=== PATIENT | female | born 1950 | race American Indian/Alaskan Native ===

== ENCOUNTER 2018-08-18 10:47 | Emergency (ER) | payer MEDICARE, OTHER ==
[~2018-08-18] VITALS: Ht 157.5 cm; Wt 63.5 kg
[2018-08-18 11:34] LABS: Basophils # (auto) 0.1 uL; Basophils % (auto) 0.7 % (0.0-2.0); Eosinophils # (auto) 0.3 uL; Eosinophils % (auto) 4.5 % (0.0-7.0); Hematocrit 35.4 % (36.0-46.0); Hemoglobin 11.7 g/dL (12.2-16.2); Lymphocytes # (auto) 0.7 uL; Lymphocytes % (auto) 8.9 % (10.0-50.0); Mean Corpuscular Hemoglobin 29.1 pg (28.0-32.0); Mean Corpuscular Hgb Conc. 33.1 g/dL (32.0-36.0); Monocytes # (auto) 0.4 uL; Monocytes % (auto) 5.4 % (0.0-12.0); Neutrophils # (auto) 6.3 uL; Neutrophils % (auto) 80.5 % (37.0-80.0); Nucleated Red Blood Cells % 0.1 %; Platelet Count (auto) 242 10^3/uL (140-450); Red Blood Cells 4.02 10^6/uL (4.0-5.20); Red Cell Distribution Width 16.6 % (11.8-14.3); White Blood Cell 7.9 10^3/uL (4.4-10.8)
[2018-08-18 11:54] LABS: Calcium 8.4 mg/dL (8.5-10.1)
[2018-08-18 12:06] LABS: Albumin 3.8 g/dL (3.4-5.0)
[2018-08-18 12:34] LABS: BUN/Creatinine Ratio 28.3; Magnesium 2.1 mg/dL (1.6-2.6)
[2018-08-18 13:02] LABS: Total Protein 7.6 g/dL (6.4-8.2)
[2018-08-18 13:20] VITALS: BP 147/85
== END 2018-08-18 13:22 | disposition home or self-care (01) ==
LOC: ER 10:49
DX: J40 Bronchitis, not specified as acute or chronic (principal); F41.9 Anxiety disorder, unspecified
CPT/HCPCS: 36415; 71046; 80053; 83735; 83880; 84484; 85025; 93005

== ENCOUNTER → 2018-10-03 | Outpatient (CLI) | payer MEDICARE, OTHER ==
[~2018-10-03] MED LIST: BEN10T PO; CAR3125T PO; FURO40TA4 PO; POTA-167 PO; WARPRX PO
== END | disposition home or self-care (01) ==
LOC: Rad HDHVI 14:55
PROVIDERS: ATTEND Internal Medicine Cardiovascular Disease
DX: I07.1 Rheumatic tricuspid insufficiency (principal); R06.02 Shortness of breath
CPT/HCPCS: 93306

== ENCOUNTER → 2018-11-24 | Outpatient (CLI) | payer MEDICARE, OTHER ==
[~2018-11-24] VITALS: Ht 157.5 cm; Wt 72.6 kg
[~2018-11-24] MED LIST changes: +ADENOSINE 61 MG in GIVE UN-DILUTED 0 ML IV ONE; +ADENOSINE 90 MG/30 ML INJ IV ONE
== END | disposition home or self-care (01) ==
LOC: Rad HDHVI 09:49
PROVIDERS: ATTEND Internal Medicine Cardiovascular Disease
DX: I05.0 Rheumatic mitral stenosis (principal); I11.0 Hypertensive heart disease with heart failure; I50.33 Acute on chronic diastolic (congestive) heart failure; I00 Rheumatic fever without heart involvement; I31.3 Pericardial effusion (noninflammatory); E78.00 Pure hypercholesterolemia, unspecified
CPT/HCPCS: 78452; 93005; 96374; 96375; A9500; J0153

== ENCOUNTER → 2019-01-18 | Outpatient (CLI) | payer MEDICARE, OTHER ==
[~2019-01-18] VITALS: Ht 157.5 cm; Wt 72.6 kg
[~2019-01-18] MED LIST changes: -ADENOSINE 61 MG in GIVE UN-DILUTED 0 ML IV ONE; -ADENOSINE 90 MG/30 ML INJ IV ONE
[2019-01-18 12:23] LABS: Basophils # (auto) 0.1 uL; Basophils % (auto) 1.1 % (0.0-2.0); Eosinophils # (auto) 0.3 uL; Eosinophils % (auto) 6.2 % (0.0-7.0); Hematocrit 35.3 % (36.0-46.0); Hemoglobin 11.7 g/dL (12.2-16.2); Lymphocytes % (auto) 21.5 % (10.0-50.0); Mean Corpuscular Hemoglobin 29.6 pg (28.0-32.0); Mean Corpuscular Hgb Conc. 33.1 g/dL (32.0-36.0); Mean Corpuscular Volume 89.6 fL (80.0-100.0); Monocytes # (auto) 0.2 uL; Monocytes % (auto) 4.6 % (0.0-12.0); Neutrophils # (auto) 3.1 uL; Neutrophils % (auto) 66.6 % (37.0-80.0); Platelet Count (auto) 252 10^3/uL (140-450); Red Blood Cells 3.94 10^6/uL (4.0-5.20); White Blood Cell 4.7 10^3/uL (4.4-10.8)
[2019-01-18 12:24] LABS: Urine Blood Negative /uL (Negative); Urine Specific Gravity 1.017 (1.001-1.035)
[2019-01-18 12:40] LABS: Albumin 3.8 g/dL (3.4-5.0); BUN/Creatinine Ratio 26.7; Calcium 8.8 mg/dL (8.5-10.1); Potassium 4.1 mmol/L (3.5-5.1)
[2019-01-18 12:44] LABS: Bilirubin, Total 0.8 mg/dL (0.2-1.0); Total Protein 7.7 g/dL (6.4-8.2)
[2019-01-18 12:50] LABS: Free T4 (Free Thyroxine) 1.06 ng/dL (0.89-1.76)
== END | disposition home or self-care (01) ==
LOC: Rad HDHVI 09:04
PROVIDERS: ATTEND Internal Medicine Cardiovascular Disease
DX: N39.0 Urinary tract infection, site not specified (principal); D51.9 Vitamin B12 deficiency anemia, unspecified; K90.9 Intestinal malabsorption, unspecified; E11.9 Type 2 diabetes mellitus without complications; I50.9 Heart failure, unspecified; Z79.899 Other long term (current) drug therapy
CPT/HCPCS: 36415; 78472; 80053; 80061; 81003; 82306; 82607; 83036; 83880; 84439; 84443; 85025; 87086; 96374; 96375; A9505

== ENCOUNTER → 2019-01-19 | Outpatient (CLI) | payer MEDICARE, OTHER | END | disposition home or self-care (01) | LOC: Rad HDHVI 10:06 | PROVIDERS: ATTEND Internal Medicine Cardiovascular Disease | DX: J84.89 Other specified interstitial pulmonary diseases (principal); I11.0 Hypertensive heart disease with heart failure | CPT/HCPCS: 71046 ==

== ENCOUNTER → 2019-03-09 | Outpatient (CLI) | payer MEDICARE, OTHER | END | disposition home or self-care (01) | LOC: Rad HDHVI 09:06 | PROVIDERS: ATTEND Internal Medicine Cardiovascular Disease | DX: K74.60 Unspecified cirrhosis of liver (principal); J84.10 Pulmonary fibrosis, unspecified; J84.9 Interstitial pulmonary disease, unspecified; I25.10 Atherosclerotic heart disease of native coronary artery without angina pectoris; I51.7 Cardiomegaly; I50.9 Heart failure, unspecified; J98.11 Atelectasis | CPT/HCPCS: 71250 ==

== ENCOUNTER → 2019-04-05 | Outpatient (CLI) | payer MEDICARE, OTHER | END | disposition home or self-care (01) | LOC: Rad HDHVI 14:01 | PROVIDERS: ATTEND Internal Medicine Cardiovascular Disease | DX: I08.8 Other rheumatic multiple valve diseases (principal); I25.5 Ischemic cardiomyopathy; I50.9 Heart failure, unspecified; Z95.1 Presence of aortocoronary bypass graft; Z82.5 Family history of asthma and other chronic lower respiratory diseases; Z83.3 Family history of diabetes mellitus | CPT/HCPCS: 93306 ==

== ENCOUNTER → 2019-07-27 | Outpatient (CLI) | payer MEDICARE, OTHER ==
[2019-07-27 12:15] LABS: BUN/Creatinine Ratio 17.6; Potassium 4.1 mmol/L (3.5-5.1)
== END | disposition home or self-care (01) ==
LOC: LAB 10:19
PROVIDERS: ATTEND Internal Medicine Cardiovascular Disease
DX: I50.9 Heart failure, unspecified (principal)
CPT/HCPCS: 36415; 80048; 83880

== ENCOUNTER → 2019-08-06 | Outpatient (CLI) | payer MEDICARE, OTHER ==
[2019-08-06 10:00] VITALS: BP 125/65
--- NOTE | 2019-08-06 10:00 | NUR ---
Pre-Op Discharge Summary: See e-MAR for any medications given for this visit. Pre-op orders received and carried out per MD of EKG, LAB. Patient given a copy of EKG with instructions to go to [facility] out patient for further follow up care.
--- NOTE | 2019-08-06 10:00 | NUR ---
CHF PT ARRIVED TO THE CHF CLINIC FOR PREOP EKG, LABS. CHEST XRAY NOT DONE HERE TODAY. VSS EKG SHOWS AFIB AWARE PT TO HAVE LEFT HEART CATH 08/09/19
[2019-08-06 10:50] VITALS: BP 128/73
[2019-08-06 12:06] LABS: Basophils # (auto) 0.1 10 ^3/uL (0-0.2); Basophils % (auto) 1.1 % (0.0-2.0); Eosinophils # (auto) 0.2 10 ^3/uL (0-0.8); Eosinophils % (auto) 3.7 % (0.0-7.0); Hematocrit 36.2 % (36.0-46.0); Hemoglobin 11.9 g/dL (12.2-16.2); Lymphocytes # (auto) 0.9 10 ^3/uL (0.4-5.4); Lymphocytes % (auto) 16.4 % (10.0-50.0); Mean Corpuscular Hemoglobin 29.2 pg (28.0-32.0); Mean Corpuscular Volume 88.4 fL (80.0-100.0); Monocytes # (auto) 0.3 10 ^3/uL (0-1.3); Monocytes % (auto) 5.9 % (0.0-12.0); Neutrophils # (auto) 3.8 10 ^3/uL (1.6-8.6); Neutrophils % (auto) 72.9 % (37.0-80.0); Platelet Count (auto) 262 10^3/uL (140-450); White Blood Cell 5.2 10^3/uL (4.4-10.8)
[2019-08-06 12:17] LABS: INR 2.41 (0.9-1.15); Partial Thromboplastin Time 55.9 sec (23.64-32.05)
[2019-08-06 12:19] LABS: Calcium 8.6 mg/dL (8.5-10.1); Potassium 4.1 mmol/L (3.5-5.1)
[2019-08-06 12:21] LABS: BUN/Creatinine Ratio 16.1
== END | disposition home or self-care (01) ==
LOC: Rad HDHVI 09:54
PROVIDERS: ATTEND Internal Medicine Cardiovascular Disease
DX: Z01.812 Encounter for preprocedural laboratory examination (principal); I50.9 Heart failure, unspecified; R94.31 Abnormal electrocardiogram [ECG] [EKG]; I25.10 Atherosclerotic heart disease of native coronary artery without angina pectoris; R06.02 Shortness of breath; I25.5 Ischemic cardiomyopathy
CPT/HCPCS: 36415; 80048; 85025; 85610; 85730; 93005; G0463

== ENCOUNTER 2019-08-09 08:20 | Day surgery (SDC) | payer MEDICARE, OTHER ==
[~2019-08-09] VITALS: Ht 157.5 cm; Wt 74.8 kg
[~2019-08-09 08:20] MED LIST changes: -BEN10T PO
[2019-08-09] MEDS ORDERED: IOHEXOL 350 MG/ML 100ML IJ ONE (10:49)
[2019-08-09] MEDS ORDERED: LIDOCAINE 2%HCL (LOCAL ANESTH.) INJ 20ML MDV ONE (10:49)
[2019-08-09] MEDS ORDERED: SODIUM CHL 0.9% 0 ML ONE (10:56)
[2019-08-09] MEDS ORDERED: ANGIOMAX 250 MG VIAL IV ONE (10:56)
[2019-08-09] MEDS ORDERED: fentaNYL CITRATE 100 MCG/2 ML VL ONE (10:56)
[2019-08-09] MEDS ORDERED: MIDAZOLAM HCL 1MG/1ML-2 ML VIAL ONE (10:56)
== END 2019-08-09 14:00 | disposition home or self-care (01) ==
LOC: CATH 08:20
PROVIDERS: ATTEND Internal Medicine Cardiovascular Disease
DX: I27.20 Pulmonary hypertension, unspecified (principal); I11.0 Hypertensive heart disease with heart failure; I50.43 Acute on chronic combined systolic (congestive) and diastolic (congestive) heart failure; Z79.01 Long term (current) use of anticoagulants; Z95.2 Presence of prosthetic heart valve; Z79.899 Other long term (current) drug therapy; Z90.49 Acquired absence of other specified parts of digestive tract; Z90.89 Acquired absence of other organs; Z98.51 Tubal ligation status
CPT/HCPCS: 93460; C1751; C1760; C1894; J1644; J2250; J3010; J7030; Q9967; 99152; 99153

== ENCOUNTER → 2019-09-28 | Outpatient (CLI) | payer MEDICARE, OTHER ==
[2019-09-28 10:59] VITALS: BP 122/60
[2019-09-28 12:45] VITALS: BP 129/76
[2019-09-28 15:59] LABS: Basophils # (auto) 0 10 ^3/uL (0-0.2); Basophils % (auto) 0.9 % (0.0-2.0); Eosinophils # (auto) 0.1 10 ^3/uL (0-0.8); Eosinophils % (auto) 3.1 % (0.0-7.0); Hematocrit 33.6 % (36.0-46.0); Hemoglobin 11.1 g/dL (12.2-16.2); Lymphocytes # (auto) 0.7 10 ^3/uL (0.4-5.4); Lymphocytes % (auto) 16.1 % (10.0-50.0); Mean Corpuscular Hemoglobin 28.4 pg (28.0-32.0); Mean Corpuscular Hgb Conc. 32.9 g/dL (32.0-36.0); Mean Corpuscular Volume 86.2 fL (80.0-100.0); Monocytes # (auto) 0.3 10 ^3/uL (0-1.3); Monocytes % (auto) 6.1 % (0.0-12.0); Neutrophils # (auto) 3.4 10 ^3/uL (1.6-8.6); Neutrophils % (auto) 73.8 % (37.0-80.0); Platelet Count (auto) 241 10^3/uL (140-450); Red Cell Distribution Width 15.2 % (11.8-14.3); White Blood Cell 4.6 10^3/uL (4.4-10.8)
[2019-09-28 16:22] LABS: Albumin 3.5 g/dL (3.4-5.0); Calcium 8.3 mg/dL (8.5-10.1); Magnesium 2.3 mg/dL (1.6-2.6); Potassium 3.9 mmol/L (3.5-5.1)
[2019-09-28 16:25] LABS: BUN/Creatinine Ratio 24.4; Bilirubin, Total 0.7 mg/dL (0.2-1.0); Total Protein 7.2 g/dL (6.4-8.2)
== END | disposition home or self-care (01) ==
LOC: CHF HDHVI 10:47
PROVIDERS: ATTEND Internal Medicine Cardiovascular Disease
DX: I50.9 Heart failure, unspecified (principal); K90.9 Intestinal malabsorption, unspecified; Z79.899 Other long term (current) drug therapy
CPT/HCPCS: 36415; 80053; 82306; 82607; 83036; 83735; 83880; 85025; 85610; 94618; G0463

== ENCOUNTER → 2019-10-12 | Outpatient (CLI) | payer MEDICARE, OTHER ==
[2019-10-12 16:03] LABS: Anion Gap 9 (5-15); BUN/Creatinine Ratio 23.6; Blood Urea Nitrogen 13 mg/dL (7-18); Calcium 8.8 mg/dL (8.5-10.1); Carbon Dioxide 25 mmol/L (21-32); Chloride 99 mmol/L (98-107); GFR African American 141 mL/min; GFR Non-African American 116 mL/min; Glucose 90 mg/dL (74-106); Potassium 4.2 mmol/L (3.5-5.1); Sodium 133 mmol/L (136-145)
== END | disposition home or self-care (01) ==
LOC: LAB 12:44
PROVIDERS: ATTEND Internal Medicine Cardiovascular Disease
DX: I50.9 Heart failure, unspecified (principal)
CPT/HCPCS: 36415; 80048; 83880

== ENCOUNTER → 2019-10-17 | Outpatient (CLI) | payer MEDICARE, OTHER | END | disposition home or self-care (01) | LOC: Rad HDHVI 15:35 | PROVIDERS: ATTEND Internal Medicine Cardiovascular Disease | DX: I50.23 Acute on chronic systolic (congestive) heart failure (principal); I27.21 Secondary pulmonary arterial hypertension; I48.21 Permanent atrial fibrillation | CPT/HCPCS: 93306 ==

== ENCOUNTER → 2019-11-07 | Outpatient (CLI) | payer MEDICARE, OTHER ==
[~2019-11-07] MED LIST changes: +FUROSEMIDE 100 MG/10ML VIAL IV ONE; +FUROSEMIDE 40 MG/4 ML VIAL ONE; +POTASSIUM CHL 10 Meq TABLET PO ONE; +POTASSIUM CHL 20 Meq TABLET PO ONE
[2019-11-07 16:00] VITALS: BP 116/61
[2019-11-07 16:37] VITALS: BP 130/77
== END | disposition home or self-care (01) ==
LOC: CHF HDHVI 15:54
PROVIDERS: ATTEND Internal Medicine Cardiovascular Disease
DX: I27.21 Secondary pulmonary arterial hypertension (principal); I50.32 Chronic diastolic (congestive) heart failure; I48.21 Permanent atrial fibrillation; Z79.899 Other long term (current) drug therapy
CPT/HCPCS: 96374; G0463; J1940

== ENCOUNTER → 2019-11-21 | Outpatient (CLI) | payer MEDICARE, OTHER ==
[~2019-11-21] MED LIST changes: -FUROSEMIDE 100 MG/10ML VIAL IV ONE; -FUROSEMIDE 40 MG/4 ML VIAL ONE; -POTASSIUM CHL 10 Meq TABLET PO ONE; -POTASSIUM CHL 20 Meq TABLET PO ONE
[2019-11-21 11:05] VITALS: BP 118/55
[2019-11-21 11:54] VITALS: BP 112/56
[2019-11-21 16:00] LABS: Basophils # (auto) 0 10 ^3/uL (0-0.2); Basophils % (auto) 0.7 % (0.0-2.0); Eosinophils # (auto) 0.1 10 ^3/uL (0-0.8); Eosinophils % (auto) 1.9 % (0.0-7.0); Hematocrit 32.7 % (36.0-46.0); Hemoglobin 11.2 g/dL (12.2-16.2); Lymphocytes # (auto) 0.7 10 ^3/uL (0.4-5.4); Lymphocytes % (auto) 13.2 % (10.0-50.0); Mean Corpuscular Hemoglobin 28.8 pg (28.0-32.0); Mean Corpuscular Hgb Conc. 34.2 g/dL (32.0-36.0); Mean Corpuscular Volume 84.2 fL (80.0-100.0); Monocytes # (auto) 0.3 10 ^3/uL (0-1.3); Monocytes % (auto) 5.9 % (0.0-12.0); Neutrophils % (auto) 78.3 % (37.0-80.0); Nucleated Red Blood Cells % 0.1 %; Platelet Count (auto) 291 10^3/uL (140-450); Red Blood Cells 3.89 10^6/uL (4.0-5.20); Red Cell Distribution Width 15.7 % (11.8-14.3); White Blood Cell 5.1 10^3/uL (4.4-10.8)
[2019-11-21 16:06] LABS: Albumin 3.9 g/dL (3.4-5.0); BUN/Creatinine Ratio 54.1; Calcium 9.2 mg/dL (8.5-10.1); Magnesium 2.4 mg/dL (1.6-2.6)
[2019-11-21 16:15] LABS: Potassium 2.6 mmol/L (3.5-5.1)
== END | disposition home or self-care (01) ==
LOC: CHF HDHVI 11:05
PROVIDERS: ATTEND Internal Medicine Cardiovascular Disease
DX: D64.9 Anemia, unspecified (principal); R60.0 Localized edema; I27.21 Secondary pulmonary arterial hypertension; Z79.899 Other long term (current) drug therapy
CPT/HCPCS: 36415; 80053; 83735; 85025; G0463

== ENCOUNTER → 2019-11-28 | Outpatient (CLI) | payer MEDICARE, OTHER ==
[~2019-11-28] MED LIST changes: +CARV3.1240 PO; +MACI1TAB2 PO; +METO5TAB56 PO; +POTA-220 PO; +RIOC1TAB PO; +WARF-196 PO; +WARF5TAB71 PO; -WARPRX PO
[2019-11-28 15:26] LABS: BUN/Creatinine Ratio 42.7; Calcium 8.9 mg/dL (8.5-10.1)
[2019-11-28 15:37] LABS: Potassium 2.5 mmol/L (3.5-5.1)
== END | disposition home or self-care (01) ==
LOC: LAB 14:49
PROVIDERS: ATTEND Internal Medicine Cardiovascular Disease
DX: E03.9 Hypothyroidism, unspecified (principal); K90.9 Intestinal malabsorption, unspecified; N39.0 Urinary tract infection, site not specified; D51.9 Vitamin B12 deficiency anemia, unspecified; Z79.899 Other long term (current) drug therapy
CPT/HCPCS: 36415; 80048

== ENCOUNTER → 2019-11-30 | Outpatient (CLI) | payer MEDICARE, OTHER ==
[~2019-11-30] MED LIST changes: -CARV3.1240 PO; -MACI1TAB2 PO; -METO5TAB56 PO; -POTA-220 PO; -RIOC1TAB PO; -WARF-196 PO; -WARF5TAB71 PO; +WARPRX PO
[2019-11-30 11:46] VITALS: BP 115/49
--- NOTE | 2019-11-30 11:46 | NUR ---
CLINIC PT ARRIVED TO THE CHF CLINIC FOR EVAL AND RECHECK OF K+ LEVEL THAT WAS 2.5 ON 11/28/19. PT WAS INSTRUCTED ON 11/28/19 TO INCREASE HER K+. A/OX4, AMBULATORY. PT WAS ASSISTED BY CAREGIVER.
--- NOTE | 2019-11-30 12:30 | NUR ---
Discharge Instructions See e-MAR for any mediations given with this visit. Patient education given on disease process. Patient verbalized understanding. Previous labs reviewed. Patient discharged in stable condition with after care instructions and follow up appointment 1 WEEK AFTER STARTING ADEMPUS. PT IS TO RESTART OPSUMIT 10MG QD TODAY AND IS AWAITING APPROVAL FOR ADEMPUS 0.5 MG TID. VIT D SPRAY GIVEN TO PT. CHRYSTAL WHITE WILL CALL PT WITH LABS RESULTS WHEN RESULTED.
[2019-11-30 12:41] LABS: BUN/Creatinine Ratio 36.3; Calcium 9.2 mg/dL (8.5-10.1)
[2019-11-30 14:11] LABS: Potassium 2.9 mmol/L (3.5-5.1)
== END | disposition home or self-care (01) ==
LOC: CHF HDHVI 11:48
PROVIDERS: ATTEND Internal Medicine Cardiovascular Disease
DX: I27.0 Primary pulmonary hypertension (principal); E87.6 Hypokalemia
CPT/HCPCS: 36415; 80048; G0463

== ENCOUNTER → 2019-12-19 | Outpatient (CLI) | payer MEDICARE, OTHER ==
[~2019-12-19] VITALS: Ht 30.5 cm; Wt 69.9 kg
[~2019-12-19] MED LIST changes: +CYANOCOBALAMIN (B-12) 1000 MCG/1 ML VIAL IM ONE; +CYANOCOBALAMIN (B-12) 1000 MCG/1 ML VIAL ONE; +WARF-196 PO; -WARPRX PO
[2019-12-19 11:15] VITALS: BP 106/54
[2019-12-19 11:48] VITALS: BP 105/52
[2019-12-19 11:52] LABS: Basophils # (auto) 0.1 10 ^3/uL (0-0.2); Basophils % (auto) 0.9 % (0.0-2.0); Eosinophils # (auto) 0.2 10 ^3/uL (0-0.8); Eosinophils % (auto) 2.9 % (0.0-7.0); Hematocrit 33.9 % (36.0-46.0); Hemoglobin 11.5 g/dL (12.2-16.2); Lymphocytes # (auto) 0.9 10 ^3/uL (0.4-5.4); Lymphocytes % (auto) 16.1 % (10.0-50.0); Mean Corpuscular Hemoglobin 28.5 pg (28.0-32.0); Mean Corpuscular Hgb Conc. 33.9 g/dL (32.0-36.0); Monocytes # (auto) 0.3 10 ^3/uL (0-1.3); Monocytes % (auto) 5.6 % (0.0-12.0); Neutrophils # (auto) 4.3 10 ^3/uL (1.6-8.6); Neutrophils % (auto) 74.5 % (37.0-80.0); Nucleated Red Blood Cells % 0.1 %; Platelet Count (auto) 307 10^3/uL (140-450); Red Blood Cells 4.03 10^6/uL (4.0-5.20); Red Cell Distribution Width 15.5 % (11.8-14.3); White Blood Cell 5.7 10^3/uL (4.4-10.8)
[2019-12-19 11:58] LABS: Albumin 3.5 g/dL (3.4-5.0); Calcium 8.7 mg/dL (8.5-10.1); Magnesium 2.4 mg/dL (1.6-2.6)
[2019-12-19 12:02] LABS: BUN/Creatinine Ratio 41.9; Bilirubin, Total 0.8 mg/dL (0.2-1.0); Total Protein 7.8 g/dL (6.4-8.2)
[2019-12-19 14:15] LABS: Potassium 2.7 mmol/L (3.5-5.1)
== END | disposition home or self-care (01) ==
LOC: CHF HDHVI 11:02
PROVIDERS: ATTEND Internal Medicine Cardiovascular Disease
DX: I27.0 Primary pulmonary hypertension (principal); D64.9 Anemia, unspecified; E83.40 Disorders of magnesium metabolism, unspecified; R53.83 Other fatigue; Z79.899 Other long term (current) drug therapy
CPT/HCPCS: 36415; 80053; 83735; 85025; 96372; G0463; J3420

== ENCOUNTER → 2019-12-21 | Outpatient (CLI) | payer MEDICARE, OTHER ==
[~2019-12-21] MED LIST changes: +CARV3.1240 PO; -CYANOCOBALAMIN (B-12) 1000 MCG/1 ML VIAL IM ONE; -CYANOCOBALAMIN (B-12) 1000 MCG/1 ML VIAL ONE; +MACI1TAB2 PO; +METO5TAB56 PO; +POTA-220 PO; +POTASSIUM EFFERVESENT TAB 25 MEQ ONE; +POTASSIUM EFFERVESENT TAB 25 MEQ PO ONE; +RIOC1TAB PO; +WARF5TAB71 PO
[2019-12-21 10:01] VITALS: BP 112/66
--- NOTE | 2019-12-21 10:01 | NUR ---
PT ARRIVED TO CHF CLINIC FOR TX PT ARRIVED TO CHF CLINIC FOR TX AND EVALUATION. PT IS ALERT AND AWAKE, ON ROOM AIR, WITH EVEN AND UNLABORED RESPIRATIONS. NO S/S OF DISTRESS/SOB OR PAIN NOTED. PT IS AMBULATING WITH SLOW STEADY GAIT. WILL CARRY OUT MD ORDERS.
[2019-12-21 11:35] LABS: BUN/Creatinine Ratio 40.4; Calcium 8.3 mg/dL (8.5-10.1); Potassium 3.1 mmol/L (3.5-5.1)
[2019-12-21 12:08] VITALS: BP 132/63
--- NOTE | 2019-12-21 12:08 | NUR ---
CHF CLINIC Discharge Instructions See e-MAR for any mediations given with this visit. Patient education given on disease process. Patient verbalized understanding. Previous labs reviewed. Patient discharged in stable condition with after care instructions and follow up appointment. NOTES POTASSIUM EFFERVESCENT PO ADMIN BY HARITHA WHITE Addendum: 12/21/19 at 1251 by LISSY DAVID RN PT INFORMED TO RETURN TO CLINIC ON 12/26/2019 AND TO CONTINUE CURRENT REGIMEN OF POTASSIUM AT HOME OF 40 MEQ TID. PT VERBALIZED UNDERSTANDING.
== END | disposition home or self-care (01) ==
LOC: CHF HDHVI 10:01
PROVIDERS: ATTEND Internal Medicine Cardiovascular Disease
DX: I27.0 Primary pulmonary hypertension (principal); Z79.899 Other long term (current) drug therapy; E87.6 Hypokalemia
CPT/HCPCS: 36415; 80048; G0463

== ENCOUNTER → 2019-12-26 | Outpatient (CLI) | payer MEDICARE, OTHER ==
[~2019-12-26] MED LIST changes: -CARV3.1240 PO; -MACI1TAB2 PO; -METO5TAB56 PO; -POTA-220 PO; -POTASSIUM EFFERVESENT TAB 25 MEQ ONE; -POTASSIUM EFFERVESENT TAB 25 MEQ PO ONE; -RIOC1TAB PO; -WARF5TAB71 PO
[2019-12-26 12:15] LABS: Calcium 8.9 mg/dL (8.5-10.1)
[2019-12-26 12:18] LABS: BUN/Creatinine Ratio 35.8
[2019-12-26 14:27] LABS: Potassium 2.6 mmol/L (3.5-5.1)
== END | disposition home or self-care (01) ==
LOC: LAB 10:36
PROVIDERS: ATTEND Internal Medicine Cardiovascular Disease
DX: E87.6 Hypokalemia (principal); E87.1 Hypo-osmolality and hyponatremia; Z79.899 Other long term (current) drug therapy
CPT/HCPCS: 36415; 80048

== ENCOUNTER → 2020-01-11 | Outpatient (CLI) | payer MEDICARE, OTHER ==
[~2020-01-11] MED LIST changes: +CARV3.1240 PO; +MACI1TAB2 PO; +METO5TAB56 PO; +POTA-220 PO; +RIOC1TAB PO; +WARF5TAB71 PO
[2020-01-11 08:45] VITALS: BP 102/57
--- NOTE | 2020-01-11 08:45 | NUR ---
CLINIC PT ARRIVED TO THE CHF CLINIC FOR PRE OP EKG, CXR, LABS FOR PRE OP FOR JEAN CARLOS ON 01/17/20. A/OX4, AMBULATORY. BREATHING IS EVEN AND UNLABORED.
--- NOTE | 2020-01-11 09:09 | NUR ---
EKG DONE BY POLO VAUGHN REVIEWED BY LAZ WHITE AFIB HR 69
[2020-01-11 09:18] VITALS: BP 98/62
--- NOTE | 2020-01-11 09:18 | NUR ---
Pre-Op Discharge Summary: See e-MAR for any medications given for this visit. Pre-op orders received and carried out per MD of EKG, LABS and chest xrays. Patient given a copy of EKG with instructions to go DIRECTLY to [facility] out patient for further follow up care. NOTE EKG DONE BY POLO VAUGHN REVIEWED BY LAZ WHITE
[2020-01-11 12:31] LABS: Urine Blood Negative /uL (Negative); Urine Specific Gravity 1.008 (1.001-1.035)
[2020-01-11 12:37] LABS: Basophils # (auto) 0.1 10 ^3/uL (0-0.2); Eosinophils # (auto) 0.1 10 ^3/uL (0-0.8); Eosinophils % (auto) 2.3 % (0.0-7.0); Hematocrit 32.7 % (36.0-46.0); Hemoglobin 10.9 g/dL (12.2-16.2); Lymphocytes # (auto) 0.7 10 ^3/uL (0.4-5.4); Lymphocytes % (auto) 12.8 % (10.0-50.0); Mean Corpuscular Hemoglobin 28.3 pg (28.0-32.0); Mean Corpuscular Hgb Conc. 33.3 g/dL (32.0-36.0); Mean Corpuscular Volume 84.7 fL (80.0-100.0); Monocytes # (auto) 0.3 10 ^3/uL (0-1.3); Monocytes % (auto) 5.4 % (0.0-12.0); Neutrophils # (auto) 4.1 10 ^3/uL (1.6-8.6); Neutrophils % (auto) 78.5 % (37.0-80.0); Platelet Count (auto) 262 10^3/uL (140-450); Red Blood Cells 3.86 10^6/uL (4.0-5.20); Red Cell Distribution Width 15.9 % (11.8-14.3); White Blood Cell 5.2 10^3/uL (4.4-10.8)
[2020-01-11 12:38] LABS: Albumin 3.8 g/dL (3.4-5.0); Calcium 8.8 mg/dL (8.5-10.1)
[2020-01-11 12:41] LABS: BUN/Creatinine Ratio 28.3; Bilirubin, Total 0.6 mg/dL (0.2-1.0); Total Protein 7.6 g/dL (6.4-8.2)
[2020-01-11 14:08] LABS: INR 4.06 (0.9-1.15); Partial Thromboplastin Time 88.7 sec (23.0-31.2)
== END | disposition home or self-care (01) ==
LOC: Rad HDHVI 08:23
PROVIDERS: ATTEND Internal Medicine Cardiovascular Disease
DX: Z01.812 Encounter for preprocedural laboratory examination (principal); I51.7 Cardiomegaly; Z79.899 Other long term (current) drug therapy; I48.21 Permanent atrial fibrillation
CPT/HCPCS: 36415; 71046; 80053; 81003; 83036; 85025; 85610; 85730; 87086; 93005; G0463

== ENCOUNTER → 2020-01-14 | Outpatient (CLI) | payer MEDICARE, OTHER ==
[~2020-01-14] MED LIST changes: -CAR3125T PO; -POTA-167 PO; +SODIUM CHL 3% 500 ML IV ONE; +SODIUM CHL 3% 500 ML ONE; -WARF-196 PO
[2020-01-14 10:10] VITALS: BP 112/63
[2020-01-14 13:28] VITALS: BP 112/63
== END | disposition home or self-care (01) ==
LOC: CHF HDHVI 10:16
PROVIDERS: ATTEND Internal Medicine Cardiovascular Disease
DX: E87.1 Hypo-osmolality and hyponatremia (principal); N39.0 Urinary tract infection, site not specified; R53.83 Other fatigue; E03.9 Hypothyroidism, unspecified; I27.21 Secondary pulmonary arterial hypertension; Z79.899 Other long term (current) drug therapy
CPT/HCPCS: 36415; 84295; 87086; 96365; 96366; G0463

== ENCOUNTER → 2020-01-15 | Outpatient (CLI) | payer MEDICARE, OTHER ==
[~2020-01-15] MED LIST changes: -SODIUM CHL 3% 500 ML IV ONE; -SODIUM CHL 3% 500 ML ONE; +SODIUM CHLORIDE 0.9% 1,000 ML IV ONE
[2020-01-15 08:15] VITALS: BP 118/67
--- NOTE | 2020-01-15 08:15 | NUR ---
CLINIC PT ARRIVED TO THE CHF CLINIC FOR SCHEDULED IV HYDRATION PER MD ORDERS. A/OX4, AMBULATORY. BREATHING IS EVEN AND UNLABORED.
--- NOTE | 2020-01-15 08:18 | NUR ---
IV insertion IV access obtained, via clean sterile technique by inserting 22 gauge catheter at after 1 attempt(s). IV secured properly. No trauma to site. Patient tolerated procedure well. NOTE INSERTED BY LAZ WHITE
--- NOTE | 2020-01-15 11:12 | NUR ---
IV removal IV DC'd with sterile technique, catheter fully intact. Pressure dressing applied to site. Patient tolerated procedure well. Discharged with aftercare instructions per MD. NOTE: REMOVED BY LAZ WHITE
[2020-01-15 11:17] VITALS: BP 127/58
--- NOTE | 2020-01-15 11:17 | NUR ---
Discharge Instructions See e-MAR for any mediations given with this visit. Patient education given on disease process. Patient verbalized understanding. Previous labs reviewed. Patient discharged in stable condition with after care instructions and follow up appointment. NOTE NS [id number] ADMIN BY LAZ WHITE
== END | disposition home or self-care (01) ==
LOC: CHF HDHVI 08:24
PROVIDERS: ATTEND Internal Medicine Cardiovascular Disease
DX: E86.0 Dehydration (principal); E87.1 Hypo-osmolality and hyponatremia; R53.83 Other fatigue; I50.9 Heart failure, unspecified; I48.91 Unspecified atrial fibrillation; I27.21 Secondary pulmonary arterial hypertension; E03.9 Hypothyroidism, unspecified; Z95.1 Presence of aortocoronary bypass graft; Z79.899 Other long term (current) drug therapy
CPT/HCPCS: 96360; 96361; G0463; J7030; 96366

== ENCOUNTER 2020-01-17 09:08 | Day surgery (SDC) | payer MEDICARE, OTHER ==
[~2020-01-17] VITALS: Ht 157.5 cm; Wt 71.2 kg
[~2020-01-17 09:08] MED LIST changes: -SODIUM CHLORIDE 0.9% 1,000 ML IV ONE
[2020-01-17] MEDS ORDERED: MIDAZOLAM HCL 1MG/1ML-2 ML VIAL IV ONE (10:00)
[2020-01-17] MEDS ORDERED: VANCOMYCIN 1GM/250ML 250 ML IV ONE (11:00)
[2020-01-17] MEDS ORDERED: cefTRIAXone 1GM/50ML D5W 50 ML IV ONE (11:00)
== END 2020-01-17 13:45 | disposition home or self-care (01) ==
LOC: CATH 09:08
PROVIDERS: ATTEND Internal Medicine Cardiovascular Disease
DX: I48.91 Unspecified atrial fibrillation (principal); I05.0 Rheumatic mitral stenosis; I09.9 Rheumatic heart disease, unspecified; I50.9 Heart failure, unspecified; Z95.1 Presence of aortocoronary bypass graft; Z11.59 Encounter for screening for other viral diseases
CPT/HCPCS: 93312; J0696; J2250; J3370; J7040; U0003; 99152

== ENCOUNTER → 2020-01-28 | Outpatient (CLI) | payer MEDICARE, OTHER ==
[2020-01-28 16:24] LABS: INR 2.94 (0.9-1.15)
== END | disposition home or self-care (01) ==
LOC: CHF HDHVI 12:24
PROVIDERS: ATTEND Internal Medicine Cardiovascular Disease
DX: R79.1 Abnormal coagulation profile (principal)
CPT/HCPCS: 36415; 85610

== ENCOUNTER → 2020-03-03 | Outpatient (CLI) | payer MEDICARE, OTHER ==
[~2020-03-03] MED LIST changes: +CYANOCOBALAMIN (B-12) 1000 MCG/1 ML VIAL ONE; +IRON SUCROSE 20 mg/ml 10ml VIAL IV ONE; +IRON SUCROSE COMPLEX 200 MG in SODIUM CHL 0.9% 100 ML IV ONE; +POTASSIUM CHL 20 Meq TABLET PO ONE
[2020-03-03 10:00] VITALS: BP 94/51
--- NOTE | 2020-03-03 10:00 | NUR ---
CLINIC PT ARRIVED TO CHF CLINIC FOR MONTHLY SCHEDULED PAH EVAL. A/OX4, AMBULATORY, BREATHING IS EVEN AND UNLABORED. PT C/O JAW PAIN, AND FATIGUE.
[2020-03-03 11:41] LABS: Eosinophils # (auto) 0.1 10 ^3/uL (0-0.8); Eosinophils % (auto) 1.7 % (0.0-7.0); Hemoglobin 7.1 g/dL (12.2-16.2); Monocytes # (auto) 0.3 10 ^3/uL (0-1.3); Nucleated Red Blood Cells % 0.4 %
[2020-03-03 11:43] LABS: Basophils # (auto) 0.1 10 ^3/uL (0-0.2); Hematocrit 20.6 % (36.0-46.0); Lymphocytes # (auto) 0.8 10 ^3/uL (0.4-5.4); Lymphocytes % (auto) 10.8 % (10.0-50.0); Mean Corpuscular Hemoglobin 29.5 pg (28.0-32.0); Mean Corpuscular Hgb Conc. 34.6 g/dL (32.0-36.0); Mean Corpuscular Volume 85.2 fL (80.0-100.0); Monocytes % (auto) 3.8 % (0.0-12.0); Neutrophils # (auto) 5.9 10 ^3/uL (1.6-8.6); Neutrophils % (auto) 82.7 % (37.0-80.0); Platelet Count (auto) 333 10^3/uL (140-450); Red Blood Cells 2.42 10^6/uL (4.0-5.20); Red Cell Distribution Width 16.2 % (11.8-14.3); White Blood Cell 7.1 10^3/uL (4.4-10.8)
[2020-03-03 12:03] LABS: Albumin 3.4 g/dL (3.4-5.0); Calcium 8.5 mg/dL (8.5-10.1)
[2020-03-03 12:08] LABS: BUN/Creatinine Ratio 51.4; Bilirubin, Total 0.6 mg/dL (0.2-1.0); Magnesium 2.4 mg/dL (1.6-2.6); Total Protein 6.7 g/dL (6.4-8.2)
--- NOTE | 2020-03-03 12:25 | NUR ---
Dr. Juan Maynard at bedside Dr. Maynard at bedside for exam. Additional orders received and carried out.
--- NOTE | 2020-03-03 12:30 | NUR ---
IV insertion IV access obtained, via clean sterile technique by inserting 22 gauge catheter at after 3 attempt(s). IV secured properly. No trauma to site. Patient tolerated procedure well. NOTE 2 UNSUCCESSFUL ATTEMPTS BY LAZ WHITE INSERTED BY CHRYSTAL WHITE
[2020-03-03 13:28] LABS: Partial Thromboplastin Time 86.8 sec (23.0-31.2)
[2020-03-03 13:30] LABS: INR > 8.0 (0.9-1.15)
--- NOTE | 2020-03-03 13:30 | NUR ---
CRITICAL LAB CALLED IN K+ 2.8. AWARE NEW ORDERS RECEIVED AND CARRIED OUT
[2020-03-03 13:31] LABS: Potassium 2.8 mmol/L (3.5-5.1)
[2020-03-03 13:51] VITALS: BP 98/43
--- NOTE | 2020-03-03 13:51 | NUR ---
Discharge Instructions See e-MAR for any mediations given with this visit. Patient education given on disease process. Patient verbalized understanding. Previous labs reviewed. Patient discharged in stable condition with after care instructions and follow up appointment. PT GIVEN INSTRUCTIONS BY MD TO TAKE 40 MEQ K+ AT DINNER TIME AND 40MEQ K+ AT BEDTIME. ALSO GIVEN INSTRUCTIONS TO TAKE 1 EXTRA [place] [id number] ADMIN BY CHRYSTAL LLANOS PO ADMIN BY LAZ WHITE
== END | disposition home or self-care (01) ==
LOC: CHF HDHVI 10:02
PROVIDERS: ATTEND Internal Medicine Cardiovascular Disease
DX: D64.9 Anemia, unspecified (principal); I27.21 Secondary pulmonary arterial hypertension; R79.1 Abnormal coagulation profile; I49.9 Cardiac arrhythmia, unspecified; I11.0 Hypertensive heart disease with heart failure; I50.9 Heart failure, unspecified; I48.91 Unspecified atrial fibrillation; R53.83 Other fatigue; R68.84 Jaw pain; E87.6 Hypokalemia; E03.9 Hypothyroidism, unspecified; Z95.1 Presence of aortocoronary bypass graft; Z79.899 Other long term (current) drug therapy
CPT/HCPCS: 36415; 80053; 83735; 85025; 85610; 85730; 96365; G0463; J1756; J3420

== ENCOUNTER → 2020-03-05 | Outpatient (CLI) | payer MEDICARE, OTHER ==
[~2020-03-05] MED LIST changes: -CYANOCOBALAMIN (B-12) 1000 MCG/1 ML VIAL ONE; -IRON SUCROSE 20 mg/ml 10ml VIAL IV ONE; -IRON SUCROSE COMPLEX 200 MG in SODIUM CHL 0.9% 100 ML IV ONE; -POTASSIUM CHL 20 Meq TABLET PO ONE; +SODIUM CHL 3% 500 ML IV ONE; +SODIUM CHL 3% 500 ML ONE
[2020-03-05 11:30] VITALS: BP 111/64
--- NOTE | 2020-03-05 11:30 | NUR ---
CLINIC PT ARRIVED TO THE CHF CLINIC FOR F/U TX AND EVAL REGARDING LABS DRAWN ON 03/03/20. A/OX4, AMBULATORY, BREATHING IS EVEN AND UNLABORED. PT ACCOMPANIED BY DAUGHTER. PT C/O INCREASED FATIGUE WEAKNESS.
--- NOTE | 2020-03-05 11:47 | NUR ---
IV insertion IV access obtained, via clean sterile technique by inserting 22 gauge catheter at after 1 attempt(s). IV secured properly. No trauma to site. Patient tolerated procedure well. LABS DRAWN AND SENT STAT. NOTE INSERTED BY HARITHA WHITE
--- NOTE | 2020-03-05 11:54 | NUR ---
3% NS STARTED @ 30ML/HR PER MD ORDERS. VSS. WILL CONTINUE TO MONITOR. PT CONNECTED TO NURSE WHILE INFUSING. PRE INFUSION AFIB 88
[2020-03-05 12:22] LABS: Eosinophils # (auto) 0.2 10 ^3/uL (0-0.8); Hemoglobin 7.3 g/dL (12.2-16.2); Lymphocytes # (auto) 0.9 10 ^3/uL (0.4-5.4); Neutrophils # (auto) 8.1 10 ^3/uL (1.6-8.6)
[2020-03-05 12:24] LABS: Basophils # (auto) 0 10 ^3/uL (0-0.2); Basophils % (auto) 0.4 % (0.0-2.0); Lymphocytes % (auto) 9.8 % (10.0-50.0); Mean Corpuscular Hemoglobin 29.5 pg (28.0-32.0); Mean Corpuscular Hgb Conc. 34.6 g/dL (32.0-36.0); Mean Corpuscular Volume 85.1 fL (80.0-100.0); Monocytes # (auto) 0.4 10 ^3/uL (0-1.3); Monocytes % (auto) 4.5 % (0.0-12.0); Neutrophils % (auto) 83.3 % (37.0-80.0); Nucleated Red Blood Cells % 0.4 %; Platelet Count (auto) 350 10^3/uL (140-450); Red Blood Cells 2.47 10^6/uL (4.0-5.20); White Blood Cell 9.7 10^3/uL (4.4-10.8)
[2020-03-05 12:44] LABS: BUN/Creatinine Ratio 43.9; Calcium 9.3 mg/dL (8.5-10.1); Potassium 4.7 mmol/L (3.5-5.1)
--- NOTE | 2020-03-05 13:15 | NUR ---
Dr. Juan Maynard at bedside Dr. Maynard at bedside for exam. Additional orders received and carried out. 2 UNITS PRBCS TO BE ADMINISTERED TOMORROW IN [facility] [facility] AT [facility]. PRE OP TO BE DONE TODAY. CONSENTS SIGNED BY PT, PT AND DAUGHTER GIVEN INSTRUCTIONS TO GO TO [facility] FOR TYPE AND CROSS AND PAPERWORK. PT IS TO HOLD COUMADIN UNTIL FURTHER NOTICE, PT AND DAUGHTER BOTH VERBALIZED UNDERSTANDING.
[2020-03-05 13:41] VITALS: BP 104/56
--- NOTE | 2020-03-05 13:41 | NUR ---
Discharge Instructions See e-MAR for any mediations given with this visit. Patient education given on disease process. Patient verbalized understanding. Previous labs reviewed. Patient discharged in stable condition with after care instructions and follow up appointment TUESDAY WITH MD SLADE. NOTE 3%NS IV [id number] ADMIN BY LAZ WHITE
== END | disposition home or self-care (01) ==
LOC: Rad HDHVI 11:37
PROVIDERS: ATTEND Internal Medicine Cardiovascular Disease
DX: E87.1 Hypo-osmolality and hyponatremia (principal); I11.0 Hypertensive heart disease with heart failure; I50.9 Heart failure, unspecified; I48.91 Unspecified atrial fibrillation; D64.9 Anemia, unspecified; I27.21 Secondary pulmonary arterial hypertension; R53.83 Other fatigue; E03.9 Hypothyroidism, unspecified; Z95.1 Presence of aortocoronary bypass graft; Z79.899 Other long term (current) drug therapy
CPT/HCPCS: 36415; 80048; 85025; 96365; G0463

== ENCOUNTER 2020-03-06 08:44 | Day surgery (SDC) | payer MEDICARE, OTHER ==
[~2020-03-06] VITALS: Ht 154.9 cm; Wt 68.5 kg
[~2020-03-06 08:44] MED LIST changes: -SODIUM CHL 3% 500 ML IV ONE; -SODIUM CHL 3% 500 ML ONE
[2020-03-06 09:50] VITALS: BP 92/46
--- NOTE | 2020-03-06 09:50 | NUR ---
Blood transfusion Consents verified prior to administration, IV site to right FA is a 20G, flushed prior and is intact/patent. Patient identifiers x 2 confirmed. Two RN's present at bedside to verify blood CHRISTOPHER Garcia and CHRISTOPHER Grey. Patient is currently AO x 4, resting in bed comfortably, denies pain at this time. Patient verbalized understanding to s/s of blood transfusion reaction and to report any of these s/s immediately.
--- NOTE | 2020-03-06 10:05 | NUR ---
Patient is resting in bed, no c/o pain. Breaths are even and unlabored. No s/s of distress noted.
[2020-03-06 10:11] VITALS: BP 97/46
--- NOTE | 2020-03-06 11:00 | NUR ---
Patient is currently sitting in a chair at bedside watching television. No s/s of distress/SOB noted. Blood transfusion still being administered at this time.
--- NOTE | 2020-03-06 12:00 | NUR ---
No s/s of distress/SOB noted. No changes from baseline, VS WNL.
[2020-03-06 13:12] VITALS: BP 88/53
--- NOTE | 2020-03-06 13:12 | NUR ---
Second unit of blood transfusion started. Consents verified prior to administration. This RN and CHRISTOPHER Hernandez present at bedside to verify blood. IV site is intact/patent. Patient is AO x 4, no s/s of distress/SOB. Resting comfortably in bed at this time, denies any pain or s/s of transfusion reaction at this time.
[2020-03-06 13:20] VITALS: BP 85/47
[2020-03-06 13:27] VITALS: BP 86/47
--- NOTE | 2020-03-06 13:27 | NUR ---
No s/s of distress/SOB. VS WNL of baseline. Patient is stable at this time.
--- NOTE | 2020-03-06 14:30 | NUR ---
Patient awake in bed, using cell phone. No s/s of distress/SOB. Tolerating transfusion well.
--- NOTE | 2020-03-06 15:30 | NUR ---
Patient at bedside in chair, watching tv. Breaths even and unlabored, VS WNL of baseline. Denies any s/s of transfusion reaction at this time.
--- NOTE | 2020-03-06 16:00 | NUR ---
Patient given discharge instructions and post-blood transfusion care education, verbally and via handouts. Verbalized understanding to education and post-blood transfusion care.
--- NOTE | 2020-03-06 16:02 | NUR ---
Transfusion complete. Patient denies any reaction s/s. VS WNL of baseline.
[2020-03-06 16:17] VITALS: BP 101/60
--- NOTE | 2020-03-06 16:17 | NUR ---
Patient resting at bedside in chair. Breaths even and unlabored. VS WNL. Denies any s/s of transfusion reaction.
--- NOTE | 2020-03-06 16:22 | NUR ---
Patient taken out to vehicle via WC. Patient's daughter in law, Shavon, present for pick-up. All personal belongings in possession. IV discontinued prior to departure, IV catheter observed and is intact, pressure dressing applied to site. No s/s of distress/SOB noted upon departure.
== END 2020-03-06 16:22 | disposition home or self-care (01) ==
LOC: CATH 08:44
PROVIDERS: ATTEND Internal Medicine Cardiovascular Disease
DX: D64.9 Anemia, unspecified (principal); I50.9 Heart failure, unspecified; I25.810 Atherosclerosis of coronary artery bypass graft(s) without angina pectoris; Z98.890 Other specified postprocedural states; Z20.828 Contact with and (suspected) exposure to other viral communicable diseases
CPT/HCPCS: 36430; 86850; 86900; 86901; 86920; P9016; U0003

== ENCOUNTER → 2020-03-11 | Outpatient (CLI) | payer MEDICARE, OTHER ==
[2020-03-11 12:04] LABS: Basophils # (auto) 0 10 ^3/uL (0-0.2); Basophils % (auto) 0.8 % (0.0-2.0); Eosinophils # (auto) 0.2 10 ^3/uL (0-0.8); Eosinophils % (auto) 2.8 % (0.0-7.0); Hematocrit 26.8 % (36.0-46.0); Lymphocytes # (auto) 0.7 10 ^3/uL (0.4-5.4); Lymphocytes % (auto) 12.9 % (10.0-50.0); Mean Corpuscular Hemoglobin 28.1 pg (28.0-32.0); Mean Corpuscular Hgb Conc. 33.6 g/dL (32.0-36.0); Mean Corpuscular Volume 83.6 fL (80.0-100.0); Monocytes # (auto) 0.3 10 ^3/uL (0-1.3); Monocytes % (auto) 5.6 % (0.0-12.0); Neutrophils # (auto) 4.4 10 ^3/uL (1.6-8.6); Neutrophils % (auto) 77.9 % (37.0-80.0); Platelet Count (auto) 355 10^3/uL (140-450); Red Blood Cells 3.21 10^6/uL (4.0-5.20); Red Cell Distribution Width 17.6 % (11.8-14.3); White Blood Cell 5.6 10^3/uL (4.4-10.8)
== END | disposition home or self-care (01) ==
LOC: CHF HDHVI 09:55
PROVIDERS: ATTEND Internal Medicine Cardiovascular Disease
DX: D64.9 Anemia, unspecified (principal)
CPT/HCPCS: 36415; 85025

== ENCOUNTER → 2020-03-14 | Outpatient (CLI) | payer MEDICARE, OTHER ==
[~2020-03-14] MED LIST changes: +SODIUM FERRIC GLUC CPLEX 62.5MG/5ML VIAL IV ONE
[2020-03-14 16:03] LABS: Basophils # (auto) 0.1 10 ^3/uL (0-0.2); Eosinophils # (auto) 0.1 10 ^3/uL (0-0.8); Eosinophils % (auto) 2.4 % (0.0-7.0); Hematocrit 27.3 % (36.0-46.0); Lymphocytes # (auto) 0.8 10 ^3/uL (0.4-5.4); Lymphocytes % (auto) 13.6 % (10.0-50.0); Mean Corpuscular Hemoglobin 27.9 pg (28.0-32.0); Mean Corpuscular Volume 84.6 fL (80.0-100.0); Monocytes # (auto) 0.3 10 ^3/uL (0-1.3); Monocytes % (auto) 5.7 % (0.0-12.0); Neutrophils # (auto) 4.5 10 ^3/uL (1.6-8.6); Neutrophils % (auto) 77.3 % (37.0-80.0); Nucleated Red Blood Cells % 0.1 %; Platelet Count (auto) 371 10^3/uL (140-450); Red Blood Cells 3.22 10^6/uL (4.0-5.20); Red Cell Distribution Width 17.3 % (11.8-14.3); White Blood Cell 5.9 10^3/uL (4.4-10.8)
== END | disposition home or self-care (01) ==
LOC: CHF HDHVI 11:40
PROVIDERS: ATTEND Internal Medicine Cardiovascular Disease
DX: D64.9 Anemia, unspecified (principal); R94.4 Abnormal results of kidney function studies
CPT/HCPCS: 36415; 82565; 85025; 85045; J2916

== ENCOUNTER → 2020-03-17 | Outpatient (CLI) | payer MEDICARE, OTHER ==
[~2020-03-17] VITALS: Ht 30.5 cm; Wt 67.1 kg
[~2020-03-17] MED LIST changes: +IOHEXOL 350 MG/ML 100ML IJ ONE; +READI-CAT 2 (BARIUM SULF)(VANILLA SMOOTHIE) 450ML ONE; +SODIUM FERR GLUC 62.5MG/5ML 125 MG in SODIUM CHL 0.9% 100 ML IV ONE
--- NOTE | 2020-03-17 09:05 | NUR ---
PT. TO CHF CLINIC FOR TX. PT. IS TO HAVE CT. ABD./PELVIS, WITH PO AND IV CONTRAST, FOLLOWED BY IRON INFUSION PER DR. SLADE, WITH KNOW HX OF WT. LOSS, SEVERE ANEMIA AND TO R/O MALIGNANCY OF ANY KIND. PT. AOX3 AND HAS BEEN HYDRATING OVER THE WEEKEND AFTER INABILITY TO HAVE CT LAST TUESDAY. LAB RESULTS OF CREATINE 0.59 REVIEWED WITH WITH PT. ORDERS RECEIVED AND CARRIED OUT.
[2020-03-17 09:10] VITALS: BP 99/55
--- NOTE | 2020-03-17 09:15 | NUR ---
IV insertion IV access obtained, via clean sterile technique by inserting 22 gauge catheter at after attempt(s). IV secured properly. No trauma to site. Patient tolerated procedure well.
--- NOTE | 2020-03-17 09:35 | NUR ---
PT. TAKING PO CONTRAST AT THIS TIME. NO C/O.
--- NOTE | 2020-03-17 10:23 | NUR ---
PT RETURNED FROM CT AND TOLERATED PROCEDURE WELL
[2020-03-17 11:40] VITALS: BP 106/58
--- NOTE | 2020-03-17 11:40 | NUR ---
Discharge Instructions See e-MAR for any mediations given with this visit. Patient education given on disease process. Patient verbalized understanding. Previous labs reviewed. Patient discharged in stable condition with after care instructions and follow up appointment ON 03/21/20. NOTE [place] IV [id number] ADMIN BY LAZ WHITE
== END | disposition home or self-care (01) ==
LOC: Rad HDHVI 09:26
PROVIDERS: ATTEND Internal Medicine Cardiovascular Disease
DX: K40.20 Bilateral inguinal hernia, without obstruction or gangrene, not specified as recurrent (principal); K42.9 Umbilical hernia without obstruction or gangrene; I27.21 Secondary pulmonary arterial hypertension; R10.9 Unspecified abdominal pain; I11.0 Hypertensive heart disease with heart failure; I50.9 Heart failure, unspecified; I48.91 Unspecified atrial fibrillation; R63.4 Abnormal weight loss; E03.9 Hypothyroidism, unspecified; Z79.899 Other long term (current) drug therapy; Z95.1 Presence of aortocoronary bypass graft
CPT/HCPCS: 74177; 96365; G0463; J2916; Q9967

== ENCOUNTER → 2020-04-04 | Outpatient (CLI) | payer MEDICARE, OTHER ==
[~2020-04-04] MED LIST changes: +CYANOCOBALAMIN (B-12) 1000 MCG/1 ML VIAL IM ONE; +CYANOCOBALAMIN (B-12) 1000 MCG/1 ML VIAL ONE; -IOHEXOL 350 MG/ML 100ML IJ ONE; -READI-CAT 2 (BARIUM SULF)(VANILLA SMOOTHIE) 450ML ONE; -SODIUM FERR GLUC 62.5MG/5ML 125 MG in SODIUM CHL 0.9% 100 ML IV ONE; -SODIUM FERRIC GLUC CPLEX 62.5MG/5ML VIAL IV ONE
[2020-04-04 12:20] VITALS: BP 145/61
[2020-04-04 13:30] VITALS: BP 110/58
[2020-04-04 13:38] LABS: Basophils # (auto) 0 10 ^3/uL (0-0.2); Basophils % (auto) 1.1 % (0.0-2.0); Eosinophils # (auto) 0.2 10 ^3/uL (0-0.8); Eosinophils % (auto) 3.5 % (0.0-7.0); Hematocrit 30.4 % (36.0-46.0); Hemoglobin 10.3 g/dL (12.2-16.2); Lymphocytes # (auto) 0.6 10 ^3/uL (0.4-5.4); Lymphocytes % (auto) 13.9 % (10.0-50.0); Mean Corpuscular Hemoglobin 28.9 pg (28.0-32.0); Mean Corpuscular Hgb Conc. 33.8 g/dL (32.0-36.0); Mean Corpuscular Volume 85.5 fL (80.0-100.0); Monocytes # (auto) 0.2 10 ^3/uL (0-1.3); Monocytes % (auto) 5.1 % (0.0-12.0); Neutrophils # (auto) 3.5 10 ^3/uL (1.6-8.6); Neutrophils % (auto) 76.4 % (37.0-80.0); Platelet Count (auto) 289 10^3/uL (140-450); Red Blood Cells 3.56 10^6/uL (4.0-5.20); Red Cell Distribution Width 18.2 % (11.8-14.3); White Blood Cell 4.6 10^3/uL (4.4-10.8)
[2020-04-04 13:57] LABS: % Iron Saturation 17.2 % (15-50)
[2020-04-04 13:59] LABS: Potassium 3.8 mmol/L (3.5-5.1)
== END | disposition home or self-care (01) ==
LOC: CHF HDHVI 12:20
PROVIDERS: ATTEND Internal Medicine Cardiovascular Disease
DX: I27.21 Secondary pulmonary arterial hypertension (principal); R53.83 Other fatigue; I11.0 Hypertensive heart disease with heart failure; I50.9 Heart failure, unspecified; E03.9 Hypothyroidism, unspecified; Z79.899 Other long term (current) drug therapy; Z95.1 Presence of aortocoronary bypass graft; I48.91 Unspecified atrial fibrillation
CPT/HCPCS: 36415; 80048; 83540; 83550; 85025; 96372; G0463; J3420

== ENCOUNTER → 2020-04-07 | Outpatient (CLI) | payer MEDICARE, OTHER ==
[~2020-04-07] MED LIST changes: -CYANOCOBALAMIN (B-12) 1000 MCG/1 ML VIAL IM ONE; -CYANOCOBALAMIN (B-12) 1000 MCG/1 ML VIAL ONE
[2020-04-07 14:40] VITALS: BP 112/54
--- NOTE | 2020-04-07 14:40 | NUR ---
CLINIC PT ARRIVED TO THE CLINIC FOR CHF AND PAH EVAL AND TX. MED REC DONE WITH CHRYSTAL WHITE TO REVIEW HOW NEW MED REGIMEN IS GOING. A/OX4, AMBULATORY, BREATHING IS EVEN AND UNLABORED.
--- NOTE | 2020-04-07 15:00 | NUR ---
LABS DRAWN AND SENT
[2020-04-07 15:15] VITALS: BP 109/64
--- NOTE | 2020-04-07 15:15 | NUR ---
Discharge Instructions See e-MAR for any mediations given with this visit. Patient education given on disease process. Patient verbalized understanding. Previous labs reviewed. Patient discharged in stable condition with after care instructions and follow up appointment ON
[2020-04-07 15:38] LABS: Basophils # (auto) 0.1 10 ^3/uL (0-0.2); Eosinophils # (auto) 0.2 10 ^3/uL (0-0.8); Eosinophils % (auto) 3.3 % (0.0-7.0); Hematocrit 31.8 % (36.0-46.0); Hemoglobin 10.6 g/dL (12.2-16.2); Lymphocytes # (auto) 0.8 10 ^3/uL (0.4-5.4); Lymphocytes % (auto) 14.1 % (10.0-50.0); Mean Corpuscular Hemoglobin 28.4 pg (28.0-32.0); Mean Corpuscular Hgb Conc. 33.5 g/dL (32.0-36.0); Mean Corpuscular Volume 84.8 fL (80.0-100.0); Monocytes # (auto) 0.4 10 ^3/uL (0-1.3); Monocytes % (auto) 6.9 % (0.0-12.0); Neutrophils # (auto) 4.3 10 ^3/uL (1.6-8.6); Neutrophils % (auto) 74.7 % (37.0-80.0); Platelet Count (auto) 296 10^3/uL (140-450); Red Blood Cells 3.75 10^6/uL (4.0-5.20); Red Cell Distribution Width 18.4 % (11.8-14.3); White Blood Cell 5.7 10^3/uL (4.4-10.8)
== END | disposition home or self-care (01) ==
LOC: CHF HDHVI 14:40
PROVIDERS: ATTEND Internal Medicine Cardiovascular Disease
DX: E87.6 Hypokalemia (principal); I27.21 Secondary pulmonary arterial hypertension; D64.9 Anemia, unspecified; R94.4 Abnormal results of kidney function studies; R53.83 Other fatigue
CPT/HCPCS: 36415; 82565; 84132; 84520; 85025; G0463

== ENCOUNTER → 2020-07-03 | Outpatient (CLI) | payer MEDICARE, OTHER ==
[~2020-07-03] MED LIST changes: +CYANOCOBALAMIN (B-12) 1000 MCG/1 ML VIAL IM ONE; +CYANOCOBALAMIN (B-12) 1000 MCG/1 ML VIAL ONE
[2020-07-03 10:20] VITALS: BP 102/50
[2020-07-03 10:35] VITALS: BP 108/50
[2020-07-03 13:23] LABS: Basophils # (auto) 0 10 ^3/uL (0-0.2); Basophils % (auto) 1.1 % (0.0-2.0); Eosinophils # (auto) 0.2 10 ^3/uL (0-0.8); Eosinophils % (auto) 4.1 % (0.0-7.0); Hematocrit 31.7 % (36.0-46.0); Hemoglobin 10.7 g/dL (12.2-16.2); Lymphocytes # (auto) 0.8 10 ^3/uL (0.4-5.4); Lymphocytes % (auto) 17.4 % (10.0-50.0); Mean Corpuscular Hemoglobin 29.3 pg (28.0-32.0); Mean Corpuscular Hgb Conc. 33.7 g/dL (32.0-36.0); Mean Corpuscular Volume 87.1 fL (80.0-100.0); Monocytes # (auto) 0.2 10 ^3/uL (0-1.3); Monocytes % (auto) 4.6 % (0.0-12.0); Neutrophils # (auto) 3.2 10 ^3/uL (1.6-8.6); Neutrophils % (auto) 72.8 % (37.0-80.0); Platelet Count (auto) 265 10^3/uL (140-450); Red Blood Cells 3.64 10^6/uL (4.0-5.20); Red Cell Distribution Width 17.5 % (11.8-14.3); White Blood Cell 4.4 10^3/uL (4.4-10.8)
[2020-07-03 13:31] LABS: Potassium 3.6 mmol/L (3.5-5.1)
[2020-07-03 13:37] LABS: Albumin 3.6 g/dL (3.4-5.0); BUN/Creatinine Ratio 26.9; Bilirubin, Total 0.7 mg/dL (0.2-1.0); Calcium 8.1 mg/dL (8.5-10.1); Magnesium 2.3 mg/dL (1.6-2.6); Total Protein 7.4 g/dL (6.4-8.2)
== END | disposition home or self-care (01) ==
LOC: CHF HDHVI 10:17
PROVIDERS: ATTEND Internal Medicine Cardiovascular Disease
DX: I50.23 Acute on chronic systolic (congestive) heart failure (principal); R53.83 Other fatigue; I27.21 Secondary pulmonary arterial hypertension
CPT/HCPCS: 36415; 80053; 83735; 85025; 96372; G0463; J3420

== ENCOUNTER → 2020-07-24 | Outpatient (CLI) | payer MEDICARE, OTHER ==
[~2020-07-24] MED LIST changes: -CYANOCOBALAMIN (B-12) 1000 MCG/1 ML VIAL IM ONE; -CYANOCOBALAMIN (B-12) 1000 MCG/1 ML VIAL ONE
== END | disposition home or self-care (01) ==
LOC: Rad HDHVI 09:21
PROVIDERS: ATTEND Internal Medicine Cardiovascular Disease
DX: I50.33 Acute on chronic diastolic (congestive) heart failure (principal); R00.2 Palpitations
CPT/HCPCS: 93306

== ENCOUNTER → 2020-09-02 | Outpatient (CLI) | payer MEDICARE, OTHER ==
[~2020-09-02] MED LIST changes: +CYANOCOBALAMIN (B-12) 1000 MCG/1 ML VIAL IM ONE; +CYANOCOBALAMIN (B-12) 1000 MCG/1 ML VIAL ONE
[2020-09-02 10:20] VITALS: BP 129/66
[2020-09-02 11:43] LABS: Basophils # (auto) 0 10 ^3/uL (0-0.2); Eosinophils # (auto) 0.1 10 ^3/uL (0-0.8); Eosinophils % (auto) 3.1 % (0.0-7.0); Hematocrit 31.8 % (36.0-46.0); Hemoglobin 10.9 g/dL (12.2-16.2); Lymphocytes # (auto) 0.7 10 ^3/uL (0.4-5.4); Lymphocytes % (auto) 16.1 % (10.0-50.0); Mean Corpuscular Hemoglobin 29.7 pg (28.0-32.0); Mean Corpuscular Hgb Conc. 34.3 g/dL (32.0-36.0); Mean Corpuscular Volume 86.7 fL (80.0-100.0); Monocytes # (auto) 0.2 10 ^3/uL (0-1.3); Neutrophils # (auto) 3.4 10 ^3/uL (1.6-8.6); Neutrophils % (auto) 74.8 % (37.0-80.0); Nucleated Red Blood Cells % 0.2 %; Platelet Count (auto) 247 10^3/uL (140-450); Red Blood Cells 3.67 10^6/uL (4.0-5.20); Red Cell Distribution Width 15.4 % (11.8-14.3); White Blood Cell 4.5 10^3/uL (4.4-10.8)
[2020-09-02 11:44] VITALS: BP 116/59
[2020-09-02 12:01] LABS: Calcium 9.2 mg/dL (8.5-10.1); Magnesium 2.2 mg/dL (1.6-2.6); Potassium 3.2 mmol/L (3.5-5.1)
[2020-09-02 12:16] LABS: Albumin 3.9 g/dL (3.4-5.0); BUN/Creatinine Ratio 58.1; Bilirubin, Total 0.8 mg/dL (0.2-1.0); Total Protein 7.5 g/dL (6.4-8.2)
== END | disposition home or self-care (01) ==
LOC: CHF HDHVI 09:58
PROVIDERS: ATTEND Internal Medicine Cardiovascular Disease
DX: I27.21 Secondary pulmonary arterial hypertension (principal); R00.2 Palpitations; I50.43 Acute on chronic combined systolic (congestive) and diastolic (congestive) heart failure
CPT/HCPCS: 36415; 80053; 80061; 82306; 82607; 83036; 83735; 85025; 94618; 96372; G0463; J3420

== ENCOUNTER → 2020-09-30 | Outpatient (CLI) | payer MEDICARE, OTHER ==
[~2020-09-30] MED LIST changes: +METO5TAB5 PO; -METO5TAB56 PO
[2020-09-30 10:07] VITALS: BP 108/59
[2020-09-30 10:25] VITALS: BP 107/56
[2020-09-30 11:49] LABS: Albumin 3.9 g/dL (3.4-5.0); Calcium 8.9 mg/dL (8.5-10.1); Magnesium 2.4 mg/dL (1.6-2.6); Potassium 3.3 mmol/L (3.5-5.1)
[2020-09-30 11:51] LABS: Basophils # (auto) 0 10 ^3/uL (0-0.2); Basophils % (auto) 0.7 % (0.0-2.0); Eosinophils # (auto) 0.1 10 ^3/uL (0-0.8); Eosinophils % (auto) 2.2 % (0.0-7.0); Hematocrit 33.8 % (36.0-46.0); Hemoglobin 11.3 g/dL (12.2-16.2); Lymphocytes # (auto) 0.8 10 ^3/uL (0.4-5.4); Lymphocytes % (auto) 14.1 % (10.0-50.0); Mean Corpuscular Hemoglobin 29.3 pg (28.0-32.0); Mean Corpuscular Hgb Conc. 33.4 g/dL (32.0-36.0); Mean Corpuscular Volume 87.8 fL (80.0-100.0); Monocytes # (auto) 0.3 10 ^3/uL (0-1.3); Monocytes % (auto) 5.2 % (0.0-12.0); Neutrophils # (auto) 4.5 10 ^3/uL (1.6-8.6); Neutrophils % (auto) 77.8 % (37.0-80.0); Nucleated Red Blood Cells % 0.1 %; Platelet Count (auto) 285 10^3/uL (140-450); Red Blood Cells 3.85 10^6/uL (4.0-5.20); Red Cell Distribution Width 15.4 % (11.8-14.3); White Blood Cell 5.8 10^3/uL (4.4-10.8)
[2020-09-30 12:56] LABS: BUN/Creatinine Ratio 22.7; Bilirubin, Total 0.9 mg/dL (0.2-1.0); Total Protein 8.3 g/dL (6.4-8.2)
== END | disposition home or self-care (01) ==
LOC: CHF HDHVI 10:06
PROVIDERS: ATTEND Internal Medicine Cardiovascular Disease
DX: I27.21 Secondary pulmonary arterial hypertension (principal); R53.83 Other fatigue; R06.02 Shortness of breath; I11.0 Hypertensive heart disease with heart failure; I50.42 Chronic combined systolic (congestive) and diastolic (congestive) heart failure
CPT/HCPCS: 36415; 80053; 83735; 85025; 96372; G0463; J3420

== ENCOUNTER → 2020-12-17 | Outpatient (CLI) | payer MEDICARE, OTHER ==
[2020-12-17 09:54] VITALS: BP 105/49
[2020-12-17 10:33] VITALS: BP 105/49
[2020-12-17 11:34] LABS: Basophils # (auto) 0.1 10 ^3/uL (0-0.2); Basophils % (auto) 1.1 % (0.0-2.0); Eosinophils # (auto) 0.2 10 ^3/uL (0-0.8); Eosinophils % (auto) 4.3 % (0.0-7.0); Hematocrit 32.1 % (36.0-46.0); Lymphocytes # (auto) 0.8 10 ^3/uL (0.4-5.4); Lymphocytes % (auto) 17.4 % (10.0-50.0); Mean Corpuscular Hemoglobin 29.5 pg (28.0-32.0); Mean Corpuscular Hgb Conc. 34.3 g/dL (32.0-36.0); Mean Corpuscular Volume 85.9 fL (80.0-100.0); Monocytes # (auto) 0.2 10 ^3/uL (0-1.3); Monocytes % (auto) 4.9 % (0.0-12.0); Neutrophils # (auto) 3.3 10 ^3/uL (1.6-8.6); Neutrophils % (auto) 72.3 % (37.0-80.0); Red Blood Cells 3.73 10^6/uL (4.0-5.20); Red Cell Distribution Width 15.2 % (11.8-14.3); White Blood Cell 4.6 10^3/uL (4.4-10.8)
[2020-12-17 11:55] LABS: Albumin 3.6 g/dL (3.4-5.0); Calcium 8.4 mg/dL (8.5-10.1); Magnesium 2.5 mg/dL (1.6-2.6); Potassium 4.1 mmol/L (3.5-5.1)
[2020-12-17 11:59] LABS: BUN/Creatinine Ratio 26.3; Bilirubin, Total 0.7 mg/dL (0.2-1.0); Total Protein 7.3 g/dL (6.4-8.2)
== END | disposition home or self-care (01) ==
LOC: CHF HDHVI 09:57
PROVIDERS: ATTEND Internal Medicine Cardiovascular Disease
DX: I27.21 Secondary pulmonary arterial hypertension (principal); R53.83 Other fatigue; I11.0 Hypertensive heart disease with heart failure; I50.42 Chronic combined systolic (congestive) and diastolic (congestive) heart failure; R06.02 Shortness of breath
CPT/HCPCS: 36415; 71046; 80053; 83735; 83880; 85025; 96372; G0463; J3420

== ENCOUNTER → 2020-12-31 | Outpatient (CLI) | payer MEDICARE, OTHER ==
[~2020-12-31] MED LIST changes: -CYANOCOBALAMIN (B-12) 1000 MCG/1 ML VIAL IM ONE; -CYANOCOBALAMIN (B-12) 1000 MCG/1 ML VIAL ONE
[2020-12-31 10:31] VITALS: BP 105/61
[2020-12-31 11:00] VITALS: BP 120/64
[2020-12-31 14:56] LABS: Anion Gap 8 (5-15); BUN/Creatinine Ratio 35.8; Blood Urea Nitrogen 19 mg/dL (7-18); Calcium 8.6 mg/dL (8.5-10.1); Carbon Dioxide 26 mmol/L (21-32); Chloride 98 mmol/L (98-107); GFR African American 147 mL/min; GFR Non-African American 121 mL/min; Glucose 104 mg/dL (74-106); Potassium 3.4 mmol/L (3.5-5.1); Sodium 132 mmol/L (136-145)
== END | disposition home or self-care (01) ==
LOC: Rad HDHVI 09:54
PROVIDERS: ATTEND Internal Medicine Cardiovascular Disease
DX: I27.21 Secondary pulmonary arterial hypertension (principal); R06.02 Shortness of breath; R07.89 Other chest pain
CPT/HCPCS: 36415; 80048; 93306; G0463

== ENCOUNTER → 2021-01-07 | Outpatient (CLI) | payer MEDICARE, OTHER ==
[~2021-01-07] VITALS: Ht 30.5 cm; Wt 0.5 kg
[~2021-01-07] MED LIST changes: +KETOROLAC TROMETH 30 MG/ML 1ML VIAL IV ONE; +KETOROLAC TROMETH 60MG/2ML VIAL ONE
[2021-01-07 13:35] VITALS: BP 91/40
[2021-01-07 14:57] VITALS: BP 102/48
== END | disposition home or self-care (01) ==
LOC: CHF HDHVI 13:29
PROVIDERS: ATTEND Internal Medicine Cardiovascular Disease
DX: R07.81 Pleurodynia (principal); I27.21 Secondary pulmonary arterial hypertension; I11.0 Hypertensive heart disease with heart failure; I50.42 Chronic combined systolic (congestive) and diastolic (congestive) heart failure; R91.8 Other nonspecific abnormal finding of lung field
CPT/HCPCS: 71100; 96372; G0463; J1885

== ENCOUNTER → 2021-03-24 | Outpatient (CLI) | payer MEDICARE, OTHER ==
[~2021-03-24] MED LIST changes: +CYANOCOBALAMIN (B-12) 1000 MCG/1 ML VIAL IM ONE; +CYANOCOBALAMIN (B-12) 1000 MCG/1 ML VIAL ONE; -KETOROLAC TROMETH 30 MG/ML 1ML VIAL IV ONE; -KETOROLAC TROMETH 60MG/2ML VIAL ONE
[2021-03-24 09:33] VITALS: BP 106/46
[2021-03-24 09:53] VITALS: BP 101/52
[2021-03-24 11:23] LABS: Basophils # (auto) 0 10 ^3/uL (0-0.2); Eosinophils # (auto) 0.1 10 ^3/uL (0-0.8); Eosinophils % (auto) 3.2 % (0.0-7.0); Hematocrit 33.4 % (36.0-46.0); Hemoglobin 11.3 g/dL (12.2-16.2); Lymphocytes # (auto) 0.7 10 ^3/uL (0.4-5.4); Lymphocytes % (auto) 18.3 % (10.0-50.0); Mean Corpuscular Hemoglobin 29.6 pg (28.0-32.0); Mean Corpuscular Hgb Conc. 33.8 g/dL (32.0-36.0); Mean Corpuscular Volume 87.6 fL (80.0-100.0); Monocytes # (auto) 0.2 10 ^3/uL (0-1.3); Monocytes % (auto) 5.2 % (0.0-12.0); Neutrophils # (auto) 2.9 10 ^3/uL (1.6-8.6); Neutrophils % (auto) 72.3 % (37.0-80.0); Nucleated Red Blood Cells % 0.1 %; Red Blood Cells 3.81 10^6/uL (4.0-5.20); Red Cell Distribution Width 15.6 % (11.8-14.3)
[2021-03-24 11:36] LABS: Albumin 3.6 g/dL (3.4-5.0); Calcium 8.8 mg/dL (8.5-10.1); Magnesium 2.2 mg/dL (1.6-2.6)
[2021-03-24 11:41] LABS: BUN/Creatinine Ratio 27.5; Bilirubin, Total 0.8 mg/dL (0.2-1.0); Total Protein 7.3 g/dL (6.4-8.2)
== END | disposition home or self-care (01) ==
LOC: CHF HDHVI 09:33
PROVIDERS: ATTEND Internal Medicine Cardiovascular Disease
DX: I27.21 Secondary pulmonary arterial hypertension (principal); R53.83 Other fatigue; R53.1 Weakness; R06.02 Shortness of breath; I10 Essential (primary) hypertension
CPT/HCPCS: 36415; 80053; 83036; 83735; 85025; 96372; G0463; J3420

== ENCOUNTER → 2021-04-21 | Outpatient (CLI) | payer MEDICARE, OTHER ==
[2021-04-21 10:00] VITALS: BP 113/50
[2021-04-21 10:40] VITALS: BP 125/50
[2021-04-21 12:19] LABS: Basophils # (auto) 0 10 ^3/uL (0-0.2); Eosinophils # (auto) 0.1 10 ^3/uL (0-0.8); Eosinophils % (auto) 3.3 % (0.0-7.0); Hematocrit 32.9 % (36.0-46.0); Hemoglobin 10.8 g/dL (12.2-16.2); Lymphocytes # (auto) 0.6 10 ^3/uL (0.4-5.4); Lymphocytes % (auto) 15.7 % (10.0-50.0); Mean Corpuscular Hemoglobin 29.3 pg (28.0-32.0); Mean Corpuscular Hgb Conc. 32.9 g/dL (32.0-36.0); Mean Corpuscular Volume 89.1 fL (80.0-100.0); Monocytes # (auto) 0.2 10 ^3/uL (0-1.3); Monocytes % (auto) 4.3 % (0.0-12.0); Neutrophils # (auto) 2.9 10 ^3/uL (1.6-8.6); Neutrophils % (auto) 75.7 % (37.0-80.0); Red Cell Distribution Width 15.4 % (11.8-14.3); White Blood Cell 3.8 10^3/uL (4.4-10.8)
[2021-04-21 12:39] LABS: Potassium 4.1 mmol/L (3.5-5.1)
[2021-04-21 12:49] LABS: Albumin 3.4 g/dL (3.4-5.0); Bilirubin, Total 0.7 mg/dL (0.2-1.0); Calcium 8.6 mg/dL (8.5-10.1)
== END | disposition home or self-care (01) ==
LOC: CHF HDHVI 10:04
PROVIDERS: ATTEND Internal Medicine Cardiovascular Disease
DX: I27.21 Secondary pulmonary arterial hypertension (principal); I10 Essential (primary) hypertension; R06.02 Shortness of breath; R53.83 Other fatigue
CPT/HCPCS: 36415; 80053; 83735; 83880; 85025; 94618; 96372; G0463; J3420

== ENCOUNTER → 2021-05-19 | Outpatient (CLI) | payer MEDICARE, OTHER ==
[2021-05-19 11:10] VITALS: BP 118/57
[2021-05-19 11:25] VITALS: BP 104/51
[2021-05-19 15:12] LABS: Basophils # (auto) 0 10 ^3/uL (0-0.2); Basophils % (auto) 0.8 % (0.0-2.0); Eosinophils # (auto) 0.2 10 ^3/uL (0-0.8); Eosinophils % (auto) 4.3 % (0.0-7.0); Hematocrit 31.9 % (36.0-46.0); Hemoglobin 10.7 g/dL (12.2-16.2); Lymphocytes # (auto) 0.8 10 ^3/uL (0.4-5.4); Mean Corpuscular Hemoglobin 29.8 pg (28.0-32.0); Mean Corpuscular Hgb Conc. 33.7 g/dL (32.0-36.0); Mean Corpuscular Volume 88.5 fL (80.0-100.0); Monocytes # (auto) 0.3 10 ^3/uL (0-1.3); Monocytes % (auto) 6.3 % (0.0-12.0); Neutrophils # (auto) 3.1 10 ^3/uL (1.6-8.6); Neutrophils % (auto) 69.6 % (37.0-80.0); Nucleated Red Blood Cells % 0.1 %; Red Cell Distribution Width 15.4 % (11.8-14.3); White Blood Cell 4.4 10^3/uL (4.4-10.8)
[2021-05-19 15:29] LABS: Albumin 3.6 g/dL (3.4-5.0); Calcium 8.6 mg/dL (8.5-10.1); Magnesium 2.2 mg/dL (1.6-2.6); Potassium 4.5 mmol/L (3.5-5.1)
[2021-05-19 15:31] LABS: BUN/Creatinine Ratio 28.9
[2021-05-19 15:33] LABS: Bilirubin, Total 0.7 mg/dL (0.2-1.0)
== END | disposition home or self-care (01) ==
LOC: CHF HDHVI 11:09
PROVIDERS: ATTEND Internal Medicine Cardiovascular Disease
DX: I27.21 Secondary pulmonary arterial hypertension (principal); R53.83 Other fatigue; I10 Essential (primary) hypertension
CPT/HCPCS: 36415; 80053; 83735; 85025; 96372; G0463; J3420

== ENCOUNTER → 2021-06-30 | Outpatient (CLI) | payer MEDICARE, OTHER ==
[2021-06-30 11:13] VITALS: BP 125/59
[2021-06-30 11:30] VITALS: BP 114/65
[2021-06-30 15:19] LABS: Basophils # (auto) 0.1 10 ^3/uL (0-0.2); Basophils % (auto) 1.8 % (0.0-2.0); Eosinophils # (auto) 0.1 10 ^3/uL (0-0.8); Eosinophils % (auto) 3.4 % (0.0-7.0); Hematocrit 33.2 % (36.0-46.0); Hemoglobin 11.1 g/dL (12.2-16.2); Lymphocytes # (auto) 0.8 10 ^3/uL (0.4-5.4); Lymphocytes % (auto) 20.6 % (10.0-50.0); Mean Corpuscular Hemoglobin 29.7 pg (28.0-32.0); Mean Corpuscular Hgb Conc. 33.4 g/dL (32.0-36.0); Mean Corpuscular Volume 89.1 fL (80.0-100.0); Monocytes # (auto) 0.2 10 ^3/uL (0-1.3); Monocytes % (auto) 5.9 % (0.0-12.0); Neutrophils # (auto) 2.7 10 ^3/uL (1.6-8.6); Neutrophils % (auto) 68.3 % (37.0-80.0); Nucleated Red Blood Cells % 0.2 %; Red Blood Cells 3.72 10^6/uL (4.0-5.20); Red Cell Distribution Width 15.1 % (11.8-14.3)
[2021-06-30 15:25] LABS: Albumin 3.8 g/dL (3.4-5.0); Calcium 8.6 mg/dL (8.5-10.1); Magnesium 3.2 mg/dL (1.6-2.6); Potassium 4.6 mmol/L (3.5-5.1)
[2021-06-30 15:29] LABS: Bilirubin, Total 0.7 mg/dL (0.2-1.0); Total Protein 7.2 g/dL (6.4-8.2)
[2021-06-30 15:32] LABS: BUN/Creatinine Ratio 21.4
[2021-06-30 17:35] LABS: Free T4 (Free Thyroxine) 1.12 ng/dL (0.89-1.76)
== END | disposition home or self-care (01) ==
LOC: CHF HDHVI 11:08
PROVIDERS: ATTEND Internal Medicine Cardiovascular Disease
DX: I27.21 Secondary pulmonary arterial hypertension (principal); I11.0 Hypertensive heart disease with heart failure; I50.42 Chronic combined systolic (congestive) and diastolic (congestive) heart failure; Z79.899 Other long term (current) drug therapy
CPT/HCPCS: 36415; 80053; 82306; 82607; 83036; 83735; 84439; 84443; 85025; 96372; G0463; J3420

== ENCOUNTER → 2021-08-27 | Outpatient (CLI) | payer MEDICARE, OTHER ==
[2021-08-27 10:03] VITALS: BP 97/53
[2021-08-27 10:35] VITALS: BP 102/61
[2021-08-27 12:16] LABS: Albumin 3.9 g/dL (3.4-5.0); Basophils # (auto) 0 10 ^3/uL (0-0.2); Calcium 9.1 mg/dL (8.5-10.1); Eosinophils # (auto) 0.2 10 ^3/uL (0-0.8); Eosinophils % (auto) 3.6 % (0.0-7.0); Hematocrit 34.2 % (36.0-46.0); Hemoglobin 11.5 g/dL (12.2-16.2); Lymphocytes # (auto) 0.8 10 ^3/uL (0.4-5.4); Lymphocytes % (auto) 17.9 % (10.0-50.0); Magnesium 2.5 mg/dL (1.6-2.6); Mean Corpuscular Hemoglobin 29.4 pg (28.0-32.0); Mean Corpuscular Hgb Conc. 33.6 g/dL (32.0-36.0); Mean Corpuscular Volume 87.5 fL (80.0-100.0); Monocytes # (auto) 0.3 10 ^3/uL (0-1.3); Monocytes % (auto) 5.4 % (0.0-12.0); Neutrophils # (auto) 3.4 10 ^3/uL (1.6-8.6); Neutrophils % (auto) 72.1 % (37.0-80.0); Nucleated Red Blood Cells % 0.1 %; Potassium 4.1 mmol/L (3.5-5.1); Red Blood Cells 3.91 10^6/uL (4.0-5.20); Red Cell Distribution Width 14.6 % (11.8-14.3); White Blood Cell 4.7 10^3/uL (4.4-10.8)
[2021-08-27 12:20] LABS: BUN/Creatinine Ratio 33.8; Bilirubin, Total 0.8 mg/dL (0.2-1.0); Total Protein 7.5 g/dL (6.4-8.2)
== END | disposition home or self-care (01) ==
LOC: CHF HDHVI 10:08
PROVIDERS: ATTEND Internal Medicine Cardiovascular Disease
DX: I27.21 Secondary pulmonary arterial hypertension (principal); R06.00 Dyspnea, unspecified; I11.0 Hypertensive heart disease with heart failure; I50.42 Chronic combined systolic (congestive) and diastolic (congestive) heart failure; Z79.899 Other long term (current) drug therapy
CPT/HCPCS: 36415; 80053; 83735; 85025; 94618; 96372; G0463; J3420

== ENCOUNTER → 2021-09-24 | Outpatient (CLI) | payer MEDICARE, OTHER ==
[2021-09-24 10:00] VITALS: BP 106/58
[2021-09-24 10:20] VITALS: BP 116/56
[2021-09-24 12:41] LABS: Albumin 3.8 g/dL (3.4-5.0); Calcium 8.8 mg/dL (8.5-10.1); Magnesium 2.1 mg/dL (1.6-2.6); Potassium 3.4 mmol/L (3.5-5.1)
[2021-09-24 12:44] LABS: BUN/Creatinine Ratio 28.6; Bilirubin, Total 0.9 mg/dL (0.2-1.0); Total Protein 7.7 g/dL (6.4-8.2)
[2021-09-24 12:46] LABS: Basophils # (auto) 0 10 ^3/uL (0-0.2); Eosinophils # (auto) 0.1 10 ^3/uL (0-0.8); Eosinophils % (auto) 2.9 % (0.0-7.0); Hematocrit 35.6 % (36.0-46.0); Lymphocytes # (auto) 0.7 10 ^3/uL (0.4-5.4); Lymphocytes % (auto) 14.6 % (10.0-50.0); Mean Corpuscular Hemoglobin 29.5 pg (28.0-32.0); Mean Corpuscular Hgb Conc. 33.7 g/dL (32.0-36.0); Mean Corpuscular Volume 87.4 fL (80.0-100.0); Monocytes # (auto) 0.2 10 ^3/uL (0-1.3); Monocytes % (auto) 4.8 % (0.0-12.0); Neutrophils # (auto) 3.7 10 ^3/uL (1.6-8.6); Neutrophils % (auto) 76.7 % (37.0-80.0); Nucleated Red Blood Cells % 0.1 %; Red Blood Cells 4.07 10^6/uL (4.0-5.20); Red Cell Distribution Width 14.7 % (11.8-14.3); White Blood Cell 4.8 10^3/uL (4.4-10.8)
== END | disposition home or self-care (01) ==
LOC: CHF HDHVI 10:05
PROVIDERS: ATTEND Internal Medicine Cardiovascular Disease
DX: I27.21 Secondary pulmonary arterial hypertension (principal); I11.0 Hypertensive heart disease with heart failure; I50.42 Chronic combined systolic (congestive) and diastolic (congestive) heart failure; Z79.899 Other long term (current) drug therapy
CPT/HCPCS: 36415; 80053; 83735; 85025; 96372; G0463; J3420

== ENCOUNTER 2021-11-26 09:24 | Outpatient (CLI) | payer MEDICARE, OTHER ==
[~2021-11-26 09:24] MED LIST changes: -CYANOCOBALAMIN (B-12) 1000 MCG/1 ML VIAL IM ONE
== END 2021-11-26 09:30 | disposition home or self-care (01) ==
LOC: CHF HDHVI 09:24
PROVIDERS: ATTEND Internal Medicine Cardiovascular Disease
DX: I27.21 Secondary pulmonary arterial hypertension (principal)

== ENCOUNTER → 2021-11-26 | Outpatient (CLI) | payer MEDICARE, OTHER ==
[2021-11-26 09:15] VITALS: BP 122/61
[2021-11-26 09:40] VITALS: BP 112/63
[2021-11-26 11:44] LABS: Basophils # (auto) 0 10 ^3/uL (0-0.2); Basophils % (auto) 0.9 % (0.0-2.0); Eosinophils # (auto) 0.2 10 ^3/uL (0-0.8); Eosinophils % (auto) 3.4 % (0.0-7.0); Hematocrit 31.8 % (36.0-46.0); Hemoglobin 10.5 g/dL (12.2-16.2); Lymphocytes # (auto) 0.7 10 ^3/uL (0.4-5.4); Lymphocytes % (auto) 14.8 % (10.0-50.0); Mean Corpuscular Hgb Conc. 32.9 g/dL (32.0-36.0); Mean Corpuscular Volume 88.1 fL (80.0-100.0); Monocytes # (auto) 0.3 10 ^3/uL (0-1.3); Neutrophils # (auto) 3.7 10 ^3/uL (1.6-8.6); Neutrophils % (auto) 74.9 % (37.0-80.0); Red Blood Cells 3.61 10^6/uL (4.0-5.20); Red Cell Distribution Width 15.1 % (11.8-14.3); White Blood Cell 4.9 10^3/uL (4.4-10.8)
[2021-11-26 11:50] LABS: Albumin 3.5 g/dL (3.4-5.0); Calcium 8.6 mg/dL (8.5-10.1); Magnesium 2.6 mg/dL (1.6-2.6); Potassium 4.2 mmol/L (3.5-5.1)
[2021-11-26 11:55] LABS: BUN/Creatinine Ratio 27.1; Bilirubin, Total 0.8 mg/dL (0.2-1.0); Total Protein 6.9 g/dL (6.4-8.2)
== END | disposition home or self-care (01) ==
LOC: CHF HDHVI 09:19
PROVIDERS: ATTEND Internal Medicine Cardiovascular Disease
DX: I27.21 Secondary pulmonary arterial hypertension (principal); I10 Essential (primary) hypertension
CPT/HCPCS: 36415; 80053; 83735; 85025; 96372; G0463; J3420

== ENCOUNTER → 2022-02-11 | Outpatient (CLI) | payer MEDICARE, OTHER ==
[~2022-02-11] MED LIST changes: +CYANOCOBALAMIN (B-12) 1000 MCG/1 ML VIAL IM ONE
[2022-02-11 09:45] VITALS: BP 104/68
[2022-02-11 10:15] VITALS: BP 107/62
[2022-02-11 12:33] LABS: Basophils # (auto) 0 10 ^3/uL (0-0.2); Basophils % (auto) 0.8 % (0.0-2.0); Eosinophils # (auto) 0.1 10 ^3/uL (0-0.8); Hemoglobin 11.7 g/dL (12.2-16.2); Lymphocytes # (auto) 0.8 10 ^3/uL (0.4-5.4); Mean Corpuscular Hemoglobin 29.2 pg (28.0-32.0); Mean Corpuscular Hgb Conc. 33.4 g/dL (32.0-36.0); Mean Corpuscular Volume 87.5 fL (80.0-100.0); Monocytes # (auto) 0.2 10 ^3/uL (0-1.3); Monocytes % (auto) 5.2 % (0.0-12.0); Neutrophils # (auto) 3.6 10 ^3/uL (1.6-8.6); Nucleated Red Blood Cells % 0.1 %; Red Blood Cells 3.99 10^6/uL (4.0-5.20); White Blood Cell 4.7 10^3/uL (4.4-10.8)
[2022-02-11 12:38] LABS: BUN/Creatinine Ratio 33.3; Calcium 8.7 mg/dL (8.5-10.1); Potassium 3.3 mmol/L (3.5-5.1)
[2022-02-11 12:41] LABS: Bilirubin, Total 0.8 mg/dL (0.2-1.0); Total Protein 7.5 g/dL (6.4-8.2)
== END | disposition home or self-care (01) ==
LOC: CHF HDHVI 09:41
PROVIDERS: ATTEND Internal Medicine Cardiovascular Disease
DX: I27.21 Secondary pulmonary arterial hypertension (principal); I10 Essential (primary) hypertension
CPT/HCPCS: 36415; 80053; 83735; 85025; 94618; 96372; G0463; J3420

== ENCOUNTER → 2022-04-13 | Outpatient (CLI) | payer MEDICARE, OTHER ==
[2022-04-13 10:08] VITALS: BP 114/56
[2022-04-13 10:55] VITALS: BP 97/54
[2022-04-13 17:04] LABS: Basophils # (auto) 0 10 ^3/uL (0-0.2); Basophils % (auto) 0.9 % (0.0-2.0); Eosinophils # (auto) 0.1 10 ^3/uL (0-0.8); Eosinophils % (auto) 3.6 % (0.0-7.0); Hematocrit 30.5 % (36.0-46.0); Hemoglobin 10.3 g/dL (12.2-16.2); Lymphocytes # (auto) 0.5 10 ^3/uL (0.4-5.4); Lymphocytes % (auto) 14.8 % (10.0-50.0); Mean Corpuscular Hemoglobin 30.1 pg (28.0-32.0); Mean Corpuscular Hgb Conc. 33.8 g/dL (32.0-36.0); Monocytes # (auto) 0.3 10 ^3/uL (0-1.3); Monocytes % (auto) 8.6 % (0.0-12.0); Neutrophils # (auto) 2.5 10 ^3/uL (1.6-8.6); Neutrophils % (auto) 72.1 % (37.0-80.0); Nucleated Red Blood Cells % 0.1 %; Red Blood Cells 3.42 10^6/uL (4.0-5.20); Red Cell Distribution Width 14.9 % (11.8-14.3); White Blood Cell 3.5 10^3/uL (4.4-10.8)
[2022-04-13 17:31] LABS: Albumin 3.5 g/dL (3.4-5.0); BUN/Creatinine Ratio 28.3; Bilirubin, Total 0.7 mg/dL (0.2-1.0); Calcium 8.4 mg/dL (8.5-10.1); Magnesium 2.6 mg/dL (1.6-2.6); Potassium 4.5 mmol/L (3.5-5.1); Total Protein 6.8 g/dL (6.4-8.2)
== END | disposition home or self-care (01) ==
LOC: CHF HDHVI 09:57
PROVIDERS: ATTEND Internal Medicine Cardiovascular Disease
DX: I27.21 Secondary pulmonary arterial hypertension (principal)
CPT/HCPCS: 36415; 71046; 80053; 83735; 85025; 96372; G0463

== ENCOUNTER → 2022-04-21 | Outpatient (CLI) | payer MEDICARE, OTHER ==
[~2022-04-21] MED LIST changes: -CYANOCOBALAMIN (B-12) 1000 MCG/1 ML VIAL IM ONE; -CYANOCOBALAMIN (B-12) 1000 MCG/1 ML VIAL ONE
== END | disposition home or self-care (01) ==
LOC: Rad HDHVI 10:33
PROVIDERS: ATTEND Internal Medicine Cardiovascular Disease
DX: I51.7 Cardiomegaly (principal); H17.82 Peripheral opacity of cornea; R06.02 Shortness of breath
CPT/HCPCS: 71046

== ENCOUNTER → 2022-06-02 | Outpatient (CLI) | payer MEDICARE, OTHER ==
[~2022-06-02] MED LIST changes: +CYANOCOBALAMIN (B-12) 1000 MCG/1 ML VIAL IM ONE; +CYANOCOBALAMIN (B-12) 1000 MCG/1 ML VIAL ONE; +KETOROLAC TROMETH 60MG/2ML VIAL IM ONE; +KETOROLAC TROMETH 60MG/2ML VIAL ONE
[2022-06-02 11:28] VITALS: BP 111/61
[2022-06-02 12:35] VITALS: BP 116/64
[2022-06-02 16:41] LABS: Basophils # (auto) 0.1 10 ^3/uL (0-0.2); Basophils % (auto) 1.1 % (0.0-2.0); Eosinophils # (auto) 0.1 10 ^3/uL (0-0.8); Eosinophils % (auto) 2.7 % (0.0-7.0); Hematocrit 33.2 % (36.0-46.0); Hemoglobin 11.2 g/dL (12.2-16.2); Lymphocytes # (auto) 0.7 10 ^3/uL (0.4-5.4); Lymphocytes % (auto) 13.4 % (10.0-50.0); Mean Corpuscular Hemoglobin 29.6 pg (28.0-32.0); Mean Corpuscular Hgb Conc. 33.7 g/dL (32.0-36.0); Mean Corpuscular Volume 87.9 fL (80.0-100.0); Monocytes # (auto) 0.3 10 ^3/uL (0-1.3); Monocytes % (auto) 4.9 % (0.0-12.0); Neutrophils # (auto) 4.3 10 ^3/uL (1.6-8.6); Neutrophils % (auto) 77.9 % (37.0-80.0); Red Blood Cells 3.77 10^6/uL (4.0-5.20); Red Cell Distribution Width 15.8 % (11.8-14.3); White Blood Cell 5.5 10^3/uL (4.4-10.8)
[2022-06-02 16:51] LABS: Albumin 4.2 g/dL (3.4-5.0); Calcium 9.2 mg/dL (8.5-10.1); Magnesium 2.2 mg/dL (1.6-2.6); Potassium 3.8 mmol/L (3.5-5.1)
[2022-06-02 16:54] LABS: Urine Blood Negative /uL (Negative); Urine Specific Gravity 1.007 (1.001-1.035)
[2022-06-02 16:55] LABS: BUN/Creatinine Ratio 18.2; Bilirubin, Total 0.8 mg/dL (0.2-1.0); Total Protein 7.3 g/dL (6.4-8.2)
[2022-06-03 10:01] LABS: Urine Bacteria MANY /hpf (None Seen); Urine Blood Negative /uL (Negative); Urine Hyaline Cast FEW /lpf (0 - 2); Urine Specific Gravity 1.007 (1.001-1.035); Urine WBC 1 /hpf (0 - 5)
== END | disposition home or self-care (01) ==
LOC: CHF HDHVI 11:19
PROVIDERS: ATTEND Internal Medicine Cardiovascular Disease
DX: I27.21 Secondary pulmonary arterial hypertension (principal); M79.604 Pain in right leg; N39.0 Urinary tract infection, site not specified
CPT/HCPCS: 36415; 73590; 80053; 81001; 81003; 83735; 85025; 93971; 96372; G0463; J1885; J3420

== ENCOUNTER → 2022-06-10 | Outpatient (CLI) | payer MEDICARE, OTHER ==
[~2022-06-10] MED LIST changes: -CYANOCOBALAMIN (B-12) 1000 MCG/1 ML VIAL IM ONE; -CYANOCOBALAMIN (B-12) 1000 MCG/1 ML VIAL ONE; -KETOROLAC TROMETH 60MG/2ML VIAL IM ONE; -KETOROLAC TROMETH 60MG/2ML VIAL ONE
[2022-06-10 16:53] LABS: Urine Blood Negative /uL (Negative); Urine Specific Gravity 1.013 (1.001-1.035)
== END | disposition home or self-care (01) ==
LOC: CHF HDHVI 11:56
PROVIDERS: ATTEND Internal Medicine Cardiovascular Disease
DX: N39.0 Urinary tract infection, site not specified (principal)
CPT/HCPCS: 81003; 87086

== ENCOUNTER → 2022-07-13 | Outpatient (CLI) | payer MEDICARE, OTHER ==
[~2022-07-13] MED LIST changes: +CYANOCOBALAMIN (B-12) 1000 MCG/1 ML VIAL IM ONE; +CYANOCOBALAMIN (B-12) 1000 MCG/1 ML VIAL ONE
[2022-07-13 11:43] VITALS: BP 113/60
[2022-07-13 12:03] VITALS: BP 113/58
[2022-07-13 16:45] LABS: Basophils # (auto) 0 10 ^3/uL (0-0.2); Basophils % (auto) 0.8 % (0.0-2.0); Eosinophils # (auto) 0.1 10 ^3/uL (0-0.8); Eosinophils % (auto) 0.9 % (0.0-7.0); Hematocrit 35.2 % (36.0-46.0); Hemoglobin 12.1 g/dL (12.2-16.2); Lymphocytes # (auto) 0.7 10 ^3/uL (0.4-5.4); Lymphocytes % (auto) 11.8 % (10.0-50.0); Mean Corpuscular Hgb Conc. 34.5 g/dL (32.0-36.0); Mean Corpuscular Volume 87.1 fL (80.0-100.0); Monocytes # (auto) 0.2 10 ^3/uL (0-1.3); Monocytes % (auto) 3.9 % (0.0-12.0); Neutrophils # (auto) 5.1 10 ^3/uL (1.6-8.6); Neutrophils % (auto) 82.6 % (37.0-80.0); Nucleated Red Blood Cells % 0.1 %; Red Blood Cells 4.04 10^6/uL (4.0-5.20); Red Cell Distribution Width 15.7 % (11.8-14.3); White Blood Cell 6.1 10^3/uL (4.4-10.8)
[2022-07-13 17:49] LABS: Calcium 8.5 mg/dL (8.5-10.1); Potassium 3.4 mmol/L (3.5-5.1)
[2022-07-13 17:55] LABS: BUN/Creatinine Ratio 22.1; Bilirubin, Total 0.9 mg/dL (0.2-1.0); Magnesium 1.9 mg/dL (1.6-2.6); Total Protein 6.9 g/dL (6.4-8.2)
== END | disposition home or self-care (01) ==
LOC: CHF HDHVI 11:42
PROVIDERS: ATTEND Internal Medicine Cardiovascular Disease
DX: I27.21 Secondary pulmonary arterial hypertension (principal); I10 Essential (primary) hypertension; R06.02 Shortness of breath; R53.83 Other fatigue
CPT/HCPCS: 36415; 80053; 83735; 85025; 96372; G0463; J3420

== ENCOUNTER 2022-08-12 10:46 | Emergency (ER) | payer MEDICARE, OTHER ==
[~2022-08-12] VITALS: Ht 157.5 cm; Wt 66.3 kg
[~2022-08-12 10:46] MED LIST changes: -CYANOCOBALAMIN (B-12) 1000 MCG/1 ML VIAL IM ONE; -CYANOCOBALAMIN (B-12) 1000 MCG/1 ML VIAL ONE
[2022-08-12 13:26] VITALS: BP 100/52
[2022-08-12] MEDS ORDERED: HYDROcodone-ACET 5/325MG TAB PO ONE (14:30)
[2022-08-12] MEDS ORDERED: TRAM-297 PO (14:40)
== END 2022-08-12 14:45 | disposition home or self-care (01) ==
LOC: ER 10:46
DX: S39.012A Strain of muscle, fascia and tendon of lower back, initial encounter (principal); I10 Essential (primary) hypertension; Z90.49 Acquired absence of other specified parts of digestive tract; W01.0XXA Fall on same level from slipping, tripping and stumbling without subsequent striking against object, initial encounter; Y93.89 Activity, other specified; Y92.89 Other specified places as the place of occurrence of the external cause; Y99.8 Other external cause status
CPT/HCPCS: 72110; 72220

== ENCOUNTER 2022-09-10 05:36 | Inpatient (IN) | payer MEDICARE, OTHER ==
[~2022-09-10] VITALS: Ht 157.5 cm; Wt 67.3 kg
[~2022-09-10 05:36] MED LIST changes: +TRAM-297 PO
[2022-09-10 06:40] LABS: Basophils # (auto) 0 10 ^3/uL (0-0.2); Basophils % (auto) 0.7 % (0.0-2.0); Eosinophils # (auto) 0.1 10 ^3/uL (0-0.8); Eosinophils % (auto) 2.2 % (0.0-7.0); Hematocrit 33.4 % (36.0-46.0); Hemoglobin 11.5 g/dL (12.2-16.2); Lymphocytes # (auto) 0.8 10 ^3/uL (0.4-5.4); Lymphocytes % (auto) 12.4 % (10.0-50.0); Mean Corpuscular Hgb Conc. 34.4 g/dL (32.0-36.0); Mean Corpuscular Volume 87.3 fL (80.0-100.0); Monocytes # (auto) 0.3 10 ^3/uL (0-1.3); Monocytes % (auto) 4.7 % (0.0-12.0); Neutrophils # (auto) 4.8 10 ^3/uL (1.6-8.6); Nucleated Red Blood Cells % 0.1 %; Red Blood Cells 3.83 10^6/uL (4.0-5.20); Red Cell Distribution Width 15.7 % (11.8-14.3)
[2022-09-10 07:03] LABS: Albumin 3.9 g/dL (3.4-5.0); Calcium 8.6 mg/dL (8.5-10.1); Potassium 4.2 mmol/L (3.5-5.1)
[2022-09-10 07:08] LABS: Bilirubin, Total 0.9 mg/dL (0.2-1.0); Total Protein 7.1 g/dL (6.4-8.2)
[2022-09-10] MEDS ORDERED: FUROSEMIDE 100 MG/10ML VIAL IV ONE (08:15)
[2022-09-10] MEDS ORDERED: DexAMETHasone SOD PHOS 10MG/1ML VIAL INJ IV ONE (08:15)
[2022-09-10] MEDS ORDERED: IOHEXOL 350 MG/ML 100ML IJ ONE (08:19)
[2022-09-10 10:04] LABS: Urine Bacteria NONE SEEN /hpf (None Seen); Urine Blood Negative /uL (Negative); Urine WBC 45 /hpf (0 - 5)
[2022-09-10] MEDS ORDERED: cefTRIAXone 1GM/50ML D5W 50 ML IV ONE (11:00)
[2022-09-10] MEDS ORDERED: metOLazone 5 MG TAB PO PRN (14:45)
[2022-09-10 16:21] LABS: INR 1.03 (0.9-1.15)
[2022-09-10] MEDS ORDERED: WARFARIN SODIUM 5 MG TAB PO ONE (17:00)
[2022-09-10] MEDS: FUROSEMIDE 40 MG/4 ML VIAL IV SCH (18:15)
[2022-09-10] MEDS: RIOCIGUAT 0.5 MG PO SCH (22:00)
[2022-09-10] MEDS ORDERED: POTASSIUM CHL 20 Meq TABLET PO SCH (22:00)
[2022-09-10] MEDS: CARVEDILOL 3.125 MG TAB PO SCH (22:27)
[2022-09-11 05:27] LABS: Albumin 3.5 g/dL (3.4-5.0); Calcium 8.8 mg/dL (8.5-10.1)
[2022-09-11 05:30] LABS: BUN/Creatinine Ratio 33.3 (10.0-20.0); Bilirubin, Total 0.8 mg/dL (0.2-1.0); Total Protein 6.9 g/dL (6.4-8.2)
[2022-09-11 05:52] LABS: Potassium 2.8 mmol/L (3.5-5.1)
[2022-09-11] MEDS: FUROSEMIDE 40 MG/4 ML VIAL IV SCH ×2 (06:00→18:05)
[2022-09-11] MEDS: RIOCIGUAT 0.5 MG PO SCH ×3 (06:00→22:00)
[2022-09-11 06:02] LABS: Basophils # (auto) 0 10 ^3/uL (0-0.2); Basophils % (auto) 0.4 % (0.0-2.0); Eosinophils # (auto) 0 10 ^3/uL (0-0.8); Eosinophils % (auto) 0.1 % (0.0-7.0); Hematocrit 31.6 % (36.0-46.0); Hemoglobin 11.1 g/dL (12.2-16.2); Lymphocytes # (auto) 0.7 10 ^3/uL (0.4-5.4); Lymphocytes % (auto) 10.8 % (10.0-50.0); Mean Corpuscular Hemoglobin 29.3 pg (28.0-32.0); Mean Corpuscular Hgb Conc. 35.1 g/dL (32.0-36.0); Mean Corpuscular Volume 83.5 fL (80.0-100.0); Monocytes # (auto) 0.3 10 ^3/uL (0-1.3); Monocytes % (auto) 5.1 % (0.0-12.0); Neutrophils # (auto) 5.7 10 ^3/uL (1.6-8.6); Neutrophils % (auto) 83.6 % (37.0-80.0); Nucleated Red Blood Cells % 0.1 %; Red Blood Cells 3.79 10^6/uL (4.0-5.20); Red Cell Distribution Width 15.8 % (11.8-14.3); White Blood Cell 6.8 10^3/uL (4.4-10.8)
[2022-09-11] MEDS: POTASSIUM EFFERVESENT TAB 25 MEQ PO SCH ×3 (06:16→22:10)
[2022-09-11] MEDS: MACITENTAN 10 MG PO SCH (07:00)
[2022-09-11] MEDS: cefTRIAXone 1GM/50ML D5W 50 ML IV SCH (09:39)
[2022-09-11] MEDS: CARVEDILOL 3.125 MG TAB PO SCH ×2 (09:40→22:11)
[2022-09-11] MEDS ORDERED: MAGNESIUM OXIDE 400 MG TAB PO ONE (10:15)
[2022-09-11] MEDS ORDERED: DOXYCYCLINE 100 MG TAB/CAP PO ONE (10:15)
[2022-09-11 10:51] LABS: Creatinine, Urine 95 mg/dL (30.0-125.0); Sodium Urine < 5 mmol/L (40-220)
[2022-09-11 12:29] VITALS: BP 99/53
[2022-09-11] MEDS ORDERED: BISACODYL 5 MG EC TAB PO ONE (14:45)
[2022-09-11] MEDS ORDERED: POLYETHYLENE GLYCOL 17 GM PWDR PO ONE (14:45)
[2022-09-11 17:00] VITALS: BP 105/59
[2022-09-11 18:07] VITALS: BP 105/59
[2022-09-11 22:00] VITALS: BP 116/56
[2022-09-11] MEDS: DOXYCYCLINE 100 MG TAB/CAP PO SCH (22:10)
[2022-09-12] VITALS (7 sets, daily range): BP systolic 95–115; BP diastolic 40–63
[2022-09-12] MEDS: MACITENTAN 10 MG PO SCH (03:41)
[2022-09-12] MEDS: RIOCIGUAT 0.5 MG PO SCH ×3 (03:41→22:00)
[2022-09-12] MEDS: FUROSEMIDE 40 MG/4 ML VIAL IV SCH (06:28)
[2022-09-12] MEDS: POTASSIUM EFFERVESENT TAB 25 MEQ PO SCH ×3 (06:29→21:57)
[2022-09-12 07:08] LABS: Potassium 3.2 mmol/L (3.5-5.1)
[2022-09-12 07:10] LABS: BUN/Creatinine Ratio 58.3 (10.0-20.0)
[2022-09-12] MEDS: cefTRIAXone 1GM/50ML D5W 50 ML IV SCH (08:54)
[2022-09-12] MEDS: DOXYCYCLINE 100 MG TAB/CAP PO SCH ×2 (08:54→21:57)
[2022-09-12] MEDS: CARVEDILOL 3.125 MG TAB PO SCH ×2 (08:54→21:58)
[2022-09-12] MEDS ORDERED: metOLazone 5 MG TAB PO SCH (10:00)
[2022-09-12] MEDS ORDERED: POTASSIUM CHL 20 Meq TABLET PO ONE (13:15)
[2022-09-12] MEDS ORDERED: LACTULOSE 20Gm/30ML SOLN PO ONE (15:30)
[2022-09-12] MEDS ORDERED: FLEET ENEMA(ADULT) 135 ML PR ONE (17:00)
[2022-09-13 05:00] VITALS: BP 106/50
[2022-09-13] MEDS: RIOCIGUAT 0.5 MG PO SCH ×2 (05:25→14:00)
[2022-09-13] MEDS: MACITENTAN 10 MG PO SCH (05:32)
[2022-09-13] MEDS: POTASSIUM EFFERVESENT TAB 25 MEQ PO SCH ×2 (05:32→14:00)
[2022-09-13 07:09] LABS: Potassium 3.5 mmol/L (3.5-5.1)
[2022-09-13 07:18] LABS: Magnesium 2.3 mg/dL (1.6-2.6)
[2022-09-13 08:00] VITALS: BP 119/57
[2022-09-13 09:16] VITALS: BP 119/57
[2022-09-13] MEDS: CARVEDILOL 3.125 MG TAB PO SCH (09:16)
[2022-09-13] MEDS: cefTRIAXone 1GM/50ML D5W 50 ML IV SCH (09:16)
[2022-09-13] MEDS: DOXYCYCLINE 100 MG TAB/CAP PO SCH (09:17)
[2022-09-13 13:00] VITALS: BP 126/58
[2022-09-13 14:50] VITALS: BP 126/58
[2022-09-13 17:00] VITALS: BP 111/63
[2022-09-14] MEDS ORDERED: FUROSEMIDE 40 MG/4 ML VIAL IV SCH (10:00)
== END 2022-09-13 18:17 | disposition home or self-care (01) | DRG 291 ==
LOC: ER 05:36 → TELE 17:55 → TELE-WESTW 09-11 12:09
PROVIDERS: ADMIT Nurse Practitioner Family; ATTEND Internal Medicine
DX: I11.0 Hypertensive heart disease with heart failure (principal); I50.31 Acute diastolic (congestive) heart failure; D68.59 Other primary thrombophilia; E87.1 Hypo-osmolality and hyponatremia; N30.01 Acute cystitis with hematuria; J96.10 Chronic respiratory failure, unspecified whether with hypoxia or hypercapnia; M48.56XA Collapsed vertebra, not elsewhere classified, lumbar region, initial encounter for fracture; D64.9 Anemia, unspecified; K74.60 Unspecified cirrhosis of liver; R74.8 Abnormal levels of other serum enzymes; I27.29 Other secondary pulmonary hypertension; G47.33 Obstructive sleep apnea (adult) (pediatric); Z20.822 Contact with and (suspected) exposure to COVID-19; Z83.3 Family history of diabetes mellitus; Z95.2 Presence of prosthetic heart valve; Z99.81 Dependence on supplemental oxygen; Z91.199 Patient's noncompliance with other medical treatment and regimen due to unspecified reason
CPT/HCPCS: 36415; 71045; 71275; 76705; 80048; 80053; 81001; 82570; 83690; 83735; 83880; 83930; 83935; 84300; 84484; 85025; 85379; 85610; 87086; 87426; 93005; 93306; 96365; 96375; 97110; 97116; 97163; 97530; G0378; J0696; J1100

== ENCOUNTER → 2022-09-20 | Outpatient (CLI) | payer MEDICARE, OTHER ==
[~2022-09-20] VITALS: Ht 30.5 cm; Wt 60.9 kg
[~2022-09-20] MED LIST changes: +CYANOCOBALAMIN (B-12) 1000 MCG/1 ML VIAL ONE; +CYANOCOBALAMIN (B-12) 1000 MCG/1 ML VIAL SUBCUT ONE; +SODIUM CHLORIDE 0.9% 500 ML IV ONE
[2022-09-20 13:20] VITALS: BP 113/60
[2022-09-20 16:03] VITALS: BP 101/47
== END | disposition home or self-care (01) ==
LOC: Rad HDHVI 13:26
PROVIDERS: ATTEND Internal Medicine Cardiovascular Disease
DX: I27.21 Secondary pulmonary arterial hypertension (principal); E86.0 Dehydration; I11.0 Hypertensive heart disease with heart failure; I50.32 Chronic diastolic (congestive) heart failure; J96.10 Chronic respiratory failure, unspecified whether with hypoxia or hypercapnia; G47.33 Obstructive sleep apnea (adult) (pediatric); Z99.81 Dependence on supplemental oxygen
CPT/HCPCS: 71046; 96360; 96361; 96372; G0463; J3420; J7040

== ENCOUNTER → 2022-09-23 | Outpatient (CLI) | payer MEDICARE, OTHER ==
[~2022-09-23] VITALS: Ht 33 cm; Wt 0.5 kg
[~2022-09-23] MED LIST changes: +BUMETANIDE 2.5mg/10ml (0.25 mg/ml) INJ IV ONE; +BUMETANIDE INJECTION 20 ML ONE; -CYANOCOBALAMIN (B-12) 1000 MCG/1 ML VIAL ONE; -CYANOCOBALAMIN (B-12) 1000 MCG/1 ML VIAL SUBCUT ONE; +POTASSIUM CHL 20 Meq TABLET PO ONE; +POTASSIUM EFFERVESENT TAB 25 MEQ ONE; +POTASSIUM EFFERVESENT TAB 25 MEQ PO ONE; -SODIUM CHLORIDE 0.9% 500 ML IV ONE; +cefTRIAXone 1GM/50ML D5W 50 ML IV ONE
[2022-09-23 09:30] VITALS: BP 122/65
[2022-09-23 12:31] VITALS: BP 123/66
== END | disposition home or self-care (01) ==
LOC: CHF HDHVI 09:09
PROVIDERS: ATTEND Internal Medicine Cardiovascular Disease
DX: J90 Pleural effusion, not elsewhere classified (principal); I27.21 Secondary pulmonary arterial hypertension; J96.11 Chronic respiratory failure with hypoxia; I11.0 Hypertensive heart disease with heart failure; I50.32 Chronic diastolic (congestive) heart failure; Z90.49 Acquired absence of other specified parts of digestive tract; Z99.81 Dependence on supplemental oxygen
CPT/HCPCS: 71046; 94640; 96365; 96375; G0463; J0696

== ENCOUNTER → 2022-09-29 | Outpatient (CLI) | payer MEDICARE, OTHER ==
[~2022-09-29] MED LIST changes: -BUMETANIDE 2.5mg/10ml (0.25 mg/ml) INJ IV ONE; -BUMETANIDE INJECTION 20 ML ONE; -POTASSIUM CHL 20 Meq TABLET PO ONE; -POTASSIUM EFFERVESENT TAB 25 MEQ ONE; -POTASSIUM EFFERVESENT TAB 25 MEQ PO ONE; -cefTRIAXone 1GM/50ML D5W 50 ML IV ONE
[2022-09-29 10:00] VITALS: BP 107/59
[2022-09-29 11:00] VITALS: BP 96/50
== END | disposition home or self-care (01) ==
LOC: CHF HDHVI 09:55
PROVIDERS: ATTEND Internal Medicine Cardiovascular Disease
DX: R06.02 Shortness of breath (principal)
CPT/HCPCS: G0463

== ENCOUNTER → 2022-10-25 | Outpatient (CLI) | payer MEDICARE, OTHER ==
[~2022-10-25] MED LIST changes: +CYANOCOBALAMIN (B-12) 1000 MCG/1 ML VIAL IM ONE; +CYANOCOBALAMIN (B-12) 1000 MCG/1 ML VIAL ONE; +MAGNESIUM SULFATE 1GM/100ML 100 ML IV ONE; +WARF-66 PO; -WARF5TAB71 PO
[2022-10-25 14:30] VITALS: BP 107/53
== END | disposition home or self-care (01) ==
LOC: CHF HDHVI 13:04
PROVIDERS: ATTEND Internal Medicine Cardiovascular Disease
DX: E83.42 Hypomagnesemia (principal); I27.21 Secondary pulmonary arterial hypertension; D64.9 Anemia, unspecified; I11.0 Hypertensive heart disease with heart failure; I50.32 Chronic diastolic (congestive) heart failure; J96.11 Chronic respiratory failure with hypoxia; Z90.49 Acquired absence of other specified parts of digestive tract; Z99.81 Dependence on supplemental oxygen
CPT/HCPCS: 96365; 96372; G0463; J3420; J3475; 94618

== ENCOUNTER → 2023-01-17 | Outpatient (CLI) | payer MEDICARE, OTHER ==
[~2023-01-17] MED LIST changes: -MAGNESIUM SULFATE 1GM/100ML 100 ML IV ONE
[2023-01-17 16:07] VITALS: BP 101/36; PULSE 105; RESP 18; O2SAT 97
[2023-01-17 16:32] VITALS: BP 98/55; PULSE 93; RESP 18; O2SAT 97
== END | disposition home or self-care (01) ==
LOC: CHF HDHVI 16:06
PROVIDERS: ATTEND Internal Medicine Cardiovascular Disease
DX: I27.21 Secondary pulmonary arterial hypertension (principal); I11.0 Hypertensive heart disease with heart failure; I50.32 Chronic diastolic (congestive) heart failure; J96.10 Chronic respiratory failure, unspecified whether with hypoxia or hypercapnia; Z99.2 Dependence on renal dialysis; Z90.49 Acquired absence of other specified parts of digestive tract
CPT/HCPCS: 96372; G0463; J3420

== ENCOUNTER 2023-01-21 09:50 | Inpatient (IN) | payer MEDICARE, OTHER ==
[~2023-01-21] VITALS: Ht 154.9 cm; Wt 52.0 kg
[~2023-01-21 09:50] MED LIST changes: -CYANOCOBALAMIN (B-12) 1000 MCG/1 ML VIAL IM ONE; -CYANOCOBALAMIN (B-12) 1000 MCG/1 ML VIAL ONE
[2023-01-21] MEDS ORDERED: SODIUM CHLORIDE 0.9% 500 ML IVB ONE (10:30)
[2023-01-21 11:45] VITALS: PULSE 83; RESP 20; O2SAT 93
[2023-01-21 12:14] LABS: Basophils # (auto) 0 10 ^3/uL (0-0.2); Basophils % (auto) 0.6 % (0.0-2.0); Eosinophils # (auto) 0.2 10 ^3/uL (0-0.8); Eosinophils % (auto) 3.4 % (0.0-7.0); Hematocrit 30.1 % (36.0-46.0); Hemoglobin 9.9 g/dL (12.2-16.2); Lymphocytes # (auto) 1.2 10 ^3/uL (0.4-5.4); Lymphocytes % (auto) 16.8 % (10.0-50.0); Mean Corpuscular Volume 84.8 fL (80.0-100.0); Monocytes # (auto) 0.5 10 ^3/uL (0-1.3); Monocytes % (auto) 6.5 % (0.0-12.0); Neutrophils # (auto) 5.2 10 ^3/uL (1.6-8.6); Neutrophils % (auto) 72.7 % (37.0-80.0); Nucleated Red Blood Cells % 0.1 %; Red Blood Cells 3.55 10^6/uL (4.0-5.20); Red Cell Distribution Width 15.6 % (11.8-14.3); White Blood Cell 7.1 10^3/uL (4.4-10.8)
[2023-01-21] MEDS: FUROSEMIDE 40 MG/4 ML VIAL IV ONE ×2 (12:21→13:16)
[2023-01-21 12:29] LABS: Albumin 3.2 g/dL (3.4-5.0); Calcium 8.8 mg/dL (8.5-10.1); Potassium 4.1 mmol/L (3.5-5.1)
[2023-01-21 12:50] LABS: BUN/Creatinine Ratio 44.2 (10.0-20.0)
[2023-01-21 12:51] LABS: Bilirubin, Total 0.3 mg/dL (0.2-1.0); Total Protein 5.9 g/dL (6.4-8.2)
[2023-01-21] MEDS ORDERED: ONDANSETRON HCL 4 MG/2 ML VIAL IV PRN (14:00)
[2023-01-21] MEDS ORDERED: HYDROcodone-ACET 5/325MG TAB PO PRN (14:00)
[2023-01-21] MEDS ORDERED: NITROGLYCERIN 0.4 MG SL TAB SL PRN (14:00)
[2023-01-21 14:49] LABS: Urine Bacteria FEW /hpf (None Seen); Urine Blood Negative /uL (Negative); Urine Clarity Clear (Clear); Urine Color Colorless (Yellow); Urine Protein, UAD Negative (Negative); Urine Specific Gravity 1.005 (1.001-1.035); Urine Urobilinogen Normal (Negative); Urine WBC 4 /hpf (0 - 5)
[2023-01-21 15:43] LABS: Partial Thromboplastin Time 63.7 SEC (24.5-34.5); Prothrombin Time 42.7 sec (9.3-11.8)
[2023-01-21 15:46] LABS: INR 4.49 (0.9-1.15)
[2023-01-21 15:52] LABS: Cholesterol 127 mg/dL (< 200); HDL Cholesterol 57 mg/dL (40-59); LDL Cholesterol 65 mg/dL (< 100); Triglycerides 71 mg/dL (< 150)
[2023-01-21 16:28] LABS: Folate (Folic Acid) 16.17 ng/mL (5.38-24)
[2023-01-21 16:41] LABS: Basophils # (auto) 0.1 10 ^3/uL (0-0.2); Basophils % (auto) 0.9 % (0.0-2.0); Eosinophils # (auto) 0.3 10 ^3/uL (0-0.8); Eosinophils % (auto) 3.6 % (0.0-7.0); Hematocrit 29.1 % (36.0-46.0); Hemoglobin 9.7 g/dL (12.2-16.2); Lymphocytes # (auto) 1.2 10 ^3/uL (0.4-5.4); Lymphocytes % (auto) 16.8 % (10.0-50.0); Mean Corpuscular Hemoglobin 27.8 pg (28.0-32.0); Mean Corpuscular Hgb Conc. 33.2 g/dL (32.0-36.0); Mean Corpuscular Volume 83.9 fL (80.0-100.0); Monocytes # (auto) 0.5 10 ^3/uL (0-1.3); Monocytes % (auto) 7.4 % (0.0-12.0); Neutrophils % (auto) 71.3 % (37.0-80.0); Red Blood Cells 3.47 10^6/uL (4.0-5.20); Red Cell Distribution Width 15.6 % (11.8-14.3); White Blood Cell 7.1 10^3/uL (4.4-10.8)
[2023-01-21] MEDS ORDERED: SODIUM CHLORIDE 0.9% 1,000 ML, SODIUM CHL 0.9% 1,000 ML IV ONE ×4 (17:15→17:45)
[2023-01-21 17:46] LABS: Calcium 8.1 mg/dL (8.5-10.1)
[2023-01-21] MEDS: FUROSEMIDE 20 MG/2 ML VIAL IV SCH (18:00)
[2023-01-21] MEDS ORDERED: Ensure HIGH Protein Vanilla 8oz Bottle PO SCH (18:00)
[2023-01-21 18:11] LABS: Potassium 2.9 mmol/L (3.5-5.1)
[2023-01-21] MEDS ORDERED: POTASSIUM CHL 20 Meq TABLET PO ONE (18:45)
[2023-01-21] MEDS: SODIUM CHLORIDE 0.9% 1,000 ML IV SCH (18:46)
[2023-01-21] MEDS: cefTRIAXone 1GM/50ML D5W 50 ML IV SCH (18:51)
[2023-01-21] MEDS ORDERED: POTASSIUM CHLORIDE 40 MEQ, LIDOCAINE 1% (LOCAL ANESTH.) 4 ML in SODIUM CHL 0.9% 250 ML IV ONE (19:00)
[2023-01-21] MEDS: Ensure HIGH Protein Chocolate 8oz Bottle PO SCH (19:37)
[2023-01-21 19:55] VITALS: PULSE 88; RESP 24; O2SAT 96
[2023-01-21] MEDS: POTASSIUM CHL 20MEQ/100ML 100 ML IV SCH ×2 (20:17→21:59)
[2023-01-21] MEDS: traMADol HCL 50 MG TAB PO SCH (22:00)
[2023-01-21] MEDS: CARVEDILOL 3.125 MG TAB PO SCH (22:00)
[2023-01-22] VITALS (8 sets, daily range): BP systolic 108–129; BP diastolic 52–68; PULSE 71–89; RESP 17–22; TEMP 36.5; O2SAT 95–98
[2023-01-22] MEDS: POTASSIUM CHL 20MEQ/100ML 100 ML IV SCH ×2 (00:03→02:53)
[2023-01-22] MEDS: TEMAZEPAM 15 MG CAP PO PRN ×2 (00:07→22:17)
[2023-01-22 05:34] LABS: Basophils # (auto) 0 10 ^3/uL (0-0.2); Basophils % (auto) 0.5 % (0.0-2.0); Eosinophils # (auto) 0.2 10 ^3/uL (0-0.8); Eosinophils % (auto) 2.4 % (0.0-7.0); Hematocrit 29.2 % (36.0-46.0); Hemoglobin 9.8 g/dL (12.2-16.2); Lymphocytes # (auto) 1.1 10 ^3/uL (0.4-5.4); Lymphocytes % (auto) 16.9 % (10.0-50.0); Mean Corpuscular Hemoglobin 28.2 pg (28.0-32.0); Mean Corpuscular Hgb Conc. 33.6 g/dL (32.0-36.0); Monocytes # (auto) 0.4 10 ^3/uL (0-1.3); Monocytes % (auto) 6.7 % (0.0-12.0); Neutrophils # (auto) 4.8 10 ^3/uL (1.6-8.6); Neutrophils % (auto) 73.5 % (37.0-80.0); Nucleated Red Blood Cells % 0.1 %; Red Blood Cells 3.48 10^6/uL (4.0-5.20); Red Cell Distribution Width 15.3 % (11.8-14.3); White Blood Cell 6.5 10^3/uL (4.4-10.8)
[2023-01-22] MEDS: traMADol HCL 50 MG TAB PO SCH ×3 (05:52→22:00)
[2023-01-22] MEDS: FUROSEMIDE 20 MG/2 ML VIAL IV SCH ×2 (06:00→18:14)
[2023-01-22 06:02] LABS: INR 3.28 (0.9-1.15); Prothrombin Time 31.9 sec (9.3-11.8)
[2023-01-22 06:04] LABS: Potassium 4.1 mmol/L (3.5-5.1)
[2023-01-22 06:13] LABS: BUN/Creatinine Ratio 31.6 (10.0-20.0); Bilirubin, Total 0.4 mg/dL (0.2-1.0); Total Protein 6.1 g/dL (6.4-8.2)
[2023-01-22] MEDS ORDERED: WARFARIN SODIUM 5 MG TAB PO SCH (07:00)
[2023-01-22] MEDS: Ensure HIGH Protein Chocolate 8oz Bottle PO SCH ×3 (09:16→18:00)
[2023-01-22] MEDS: cefTRIAXone 1GM/50ML D5W 50 ML IV SCH (09:19)
[2023-01-22] MEDS: SODIUM CHLORIDE 0.9% 1,000 ML IV SCH (09:36)
[2023-01-22] MEDS: CARVEDILOL 3.125 MG TAB PO SCH ×2 (11:56→22:17)
[2023-01-22] MEDS ORDERED: TEMA30CA5 PO (12:25)
[2023-01-23 04:53] LABS: Basophils # (auto) 0.1 10 ^3/uL (0-0.2); Basophils % (auto) 0.8 % (0.0-2.0); Eosinophils # (auto) 0.2 10 ^3/uL (0-0.8); Eosinophils % (auto) 3.4 % (0.0-7.0); Hematocrit 27.9 % (36.0-46.0); Hemoglobin 9.5 g/dL (12.2-16.2); Lymphocytes # (auto) 1.4 10 ^3/uL (0.4-5.4); Lymphocytes % (auto) 20.8 % (10.0-50.0); Mean Corpuscular Hemoglobin 28.3 pg (28.0-32.0); Mean Corpuscular Volume 83.4 fL (80.0-100.0); Monocytes # (auto) 0.6 10 ^3/uL (0-1.3); Monocytes % (auto) 9.3 % (0.0-12.0); Neutrophils # (auto) 4.5 10 ^3/uL (1.6-8.6); Neutrophils % (auto) 65.7 % (37.0-80.0); Nucleated Red Blood Cells % 0.1 %; Red Blood Cells 3.34 10^6/uL (4.0-5.20); Red Cell Distribution Width 15.4 % (11.8-14.3); White Blood Cell 6.9 10^3/uL (4.4-10.8)
[2023-01-23 05:00] VITALS: BP 99/53; PULSE 69; RESP 18; TEMP 97.9; O2SAT 94
[2023-01-23 05:00] LABS: Potassium 3.4 mmol/L (3.5-5.1)
[2023-01-23 05:03] LABS: BUN/Creatinine Ratio 22.9 (10.0-20.0); Calcium 8.1 mg/dL (8.5-10.1)
[2023-01-23] MEDS: traMADol HCL 50 MG TAB PO SCH ×3 (05:52→22:14)
[2023-01-23] MEDS: FUROSEMIDE 20 MG/2 ML VIAL IV SCH ×2 (06:52→17:52)
[2023-01-23] MEDS: DOCUSATE SOD 100 MG CAP PO SCH ×2 (06:55→22:14)
[2023-01-23 08:00] VITALS: PULSE 54; PULSE 71; RESP 18; O2SAT 94
[2023-01-23] MEDS: Ensure HIGH Protein Chocolate 8oz Bottle PO SCH ×3 (08:00→17:56)
[2023-01-23 09:18] VITALS: BP 115/54; PULSE 54; RESP 18; TEMP 97.6; O2SAT 94
[2023-01-23] MEDS: cefTRIAXone 1GM/50ML D5W 50 ML IV SCH (09:43)
[2023-01-23] MEDS: CARVEDILOL 3.125 MG TAB PO SCH ×2 (09:45→22:14)
[2023-01-23] MEDS ORDERED: POTASSIUM CHL 20 Meq TABLET PO ONE (10:45)
[2023-01-23 16:25] LABS: INR 1.92 (0.9-1.15); Partial Thromboplastin Time 53.3 SEC (24.5-34.5); Prothrombin Time 19.3 sec (9.3-11.8)
[2023-01-23 17:29] VITALS: BP 107/49; PULSE 59; RESP 18; TEMP 98.4; O2SAT 94
[2023-01-23 20:00] VITALS: PULSE 86
[2023-01-23 22:00] VITALS: BP 112/55; PULSE 72; RESP 17; TEMP 97.7; O2SAT 94
[2023-01-23] MEDS: TEMAZEPAM 15 MG CAP PO PRN (22:14)
[2023-01-24] VITALS (7 sets, daily range): BP systolic 104–146; BP diastolic 52–94; PULSE 65–90; RESP 17–20; TEMP 37; O2SAT 93–100
[2023-01-24] MEDS: FUROSEMIDE 20 MG/2 ML VIAL IV SCH (05:49)
[2023-01-24] MEDS: traMADol HCL 50 MG TAB PO SCH (05:49)
[2023-01-24 06:44] LABS: Basophils # (auto) 0.1 10 ^3/uL (0-0.2); Basophils % (auto) 1.1 % (0.0-2.0); Eosinophils # (auto) 0.2 10 ^3/uL (0-0.8); Eosinophils % (auto) 3.1 % (0.0-7.0); Hemoglobin 10.5 g/dL (12.2-16.2); Lymphocytes # (auto) 1.4 10 ^3/uL (0.4-5.4); Lymphocytes % (auto) 18.5 % (10.0-50.0); Mean Corpuscular Hemoglobin 28.3 pg (28.0-32.0); Mean Corpuscular Volume 83.4 fL (80.0-100.0); Monocytes # (auto) 0.9 10 ^3/uL (0-1.3); Monocytes % (auto) 12.2 % (0.0-12.0); Neutrophils % (auto) 65.1 % (37.0-80.0); Red Blood Cells 3.71 10^6/uL (4.0-5.20); Red Cell Distribution Width 15.3 % (11.8-14.3); White Blood Cell 7.6 10^3/uL (4.4-10.8)
[2023-01-24 06:57] LABS: Potassium 3.7 mmol/L (3.5-5.1)
[2023-01-24 07:07] LABS: BUN/Creatinine Ratio 33.3 (10.0-20.0); Calcium 8.6 mg/dL (8.5-10.1)
[2023-01-24 07:15] LABS: INR 1.62 (0.9-1.15); Partial Thromboplastin Time 48.6 SEC (24.5-34.5); Prothrombin Time 16.5 sec (9.3-11.8)
[2023-01-24] MEDS: Ensure HIGH Protein Chocolate 8oz Bottle PO SCH ×3 (08:26→18:12)
[2023-01-24] MEDS: cefTRIAXone 1GM/50ML D5W 50 ML IV SCH (08:27)
[2023-01-24] MEDS: DOCUSATE SOD 100 MG CAP PO SCH ×2 (08:28→22:00)
[2023-01-24] MEDS: CARVEDILOL 3.125 MG TAB PO SCH (08:28)
[2023-01-24] MEDS: ERTAPENEM SOD INJ 1 GM in SODIUM CHL 0.9% 50 ML IV SCH (15:48)
[2023-01-25] VITALS (7 sets, daily range): BP systolic 123–146; BP diastolic 64–79; PULSE 85–100; RESP 15–19; TEMP 97.8–98.1; O2SAT 94–98
[2023-01-25 06:37] LABS: Basophils # (auto) 0.1 10 ^3/uL (0-0.2); Basophils % (auto) 0.9 % (0.0-2.0); Eosinophils # (auto) 0.2 10 ^3/uL (0-0.8); Eosinophils % (auto) 2.4 % (0.0-7.0); Hematocrit 32.6 % (36.0-46.0); Hemoglobin 10.8 g/dL (12.2-16.2); Lymphocytes # (auto) 0.9 10 ^3/uL (0.4-5.4); Lymphocytes % (auto) 12.6 % (10.0-50.0); Mean Corpuscular Hemoglobin 27.5 pg (28.0-32.0); Mean Corpuscular Hgb Conc. 33.1 g/dL (32.0-36.0); Mean Corpuscular Volume 83.2 fL (80.0-100.0); Monocytes # (auto) 0.6 10 ^3/uL (0-1.3); Monocytes % (auto) 9.2 % (0.0-12.0); Neutrophils # (auto) 5.1 10 ^3/uL (1.6-8.6); Neutrophils % (auto) 74.9 % (37.0-80.0); Nucleated Red Blood Cells % 0.1 %; Red Blood Cells 3.92 10^6/uL (4.0-5.20); Red Cell Distribution Width 15.4 % (11.8-14.3); White Blood Cell 6.8 10^3/uL (4.4-10.8)
[2023-01-25 06:42] LABS: INR 1.45 (0.9-1.15); Partial Thromboplastin Time 47.8 SEC (24.5-34.5); Prothrombin Time 14.9 sec (9.3-11.8)
[2023-01-25] MEDS: Ensure HIGH Protein Chocolate 8oz Bottle PO SCH ×3 (08:20→18:00)
[2023-01-25 08:26] LABS: BUN/Creatinine Ratio 15.4 (10.0-20.0); Calcium 8.5 mg/dL (8.7-10.4); Potassium 3.6 mmol/L (3.5-5.1)
[2023-01-25] MEDS: DOCUSATE SOD 100 MG CAP PO SCH ×2 (09:46→22:49)
[2023-01-25] MEDS ORDERED: levoFLOXacin 500MG 100 ML IV SCH (10:00)
[2023-01-25] MEDS: ERTAPENEM SOD INJ 1 GM in SODIUM CHL 0.9% 50 ML IV SCH (15:00)
[2023-01-26] VITALS (7 sets, daily range): BP systolic 124–139; BP diastolic 62–74; PULSE 90–111; RESP 16–20; TEMP 97.7–98.3; O2SAT 94–100
[2023-01-26] MEDS: Ensure HIGH Protein Chocolate 8oz Bottle PO SCH ×3 (08:00→18:30)
[2023-01-26] MEDS: DOCUSATE SOD 100 MG CAP PO SCH ×2 (10:00→21:09)
[2023-01-26 12:06] LABS: Anion Gap 4.5 (5-15); Carbon Dioxide 31.5 mmol/L (20-30); Chloride 93 mmol/L (98-107); Sodium 129 mmol/L (136-145)
[2023-01-26 12:12] LABS: BUN/Creatinine Ratio 20.6 (10.0-20.0); Blood Urea Nitrogen 7 mg/dL (9-23); Glucose 123 mg/dL (74-106)
[2023-01-26 13:24] LABS: Urine Bacteria FEW /hpf (None Seen); Urine Blood Negative /uL (Negative); Urine Clarity Clear (Clear); Urine Protein, UAD Negative (Negative); Urine Specific Gravity 1.005 (1.001-1.035); Urine Urobilinogen Normal (Negative); Urine WBC <1 /hpf (0 - 5); Urine pH 7.5 (5.0-8.0)
[2023-01-26 13:26] LABS: Urine Color Straw (Yellow)
[2023-01-26 15:08] LABS: INR 1.17 (0.9-1.15); Partial Thromboplastin Time 41.3 SEC (24.5-34.5); Prothrombin Time 12.2 sec (9.3-11.8)
[2023-01-26] MEDS: ERTAPENEM SOD INJ 1 GM in SODIUM CHL 0.9% 50 ML IV SCH (15:35)
[2023-01-26] MEDS ORDERED: WARFARIN SODIUM 5 MG TAB PO ONE (17:00)
[2023-01-27 04:51] VITALS: BP 148/71; PULSE 103; RESP 20; TEMP 98.6; O2SAT 100
[2023-01-27 07:08] LABS: INR 1.15 (0.9-1.15)
[2023-01-27] MEDS: Ensure HIGH Protein Chocolate 8oz Bottle PO SCH ×2 (08:00→12:00)
[2023-01-27 08:30] VITALS: PULSE 126; O2SAT 92
[2023-01-27 09:00] VITALS: BP 131/69; PULSE 109; RESP 17; TEMP 97.5; O2SAT 92
[2023-01-27] MEDS: DOCUSATE SOD 100 MG CAP PO SCH (10:35)
[2023-01-27 11:17] VITALS: BP 128/76; PULSE 78
[2023-01-27 12:50] VITALS: BP 140/79; PULSE 108; RESP 16; TEMP 97.4; O2SAT 98
[2023-01-27] MEDS ORDERED: POLYETHYLENE GLYCOL 17 GM PWDR PO ONE (13:15)
[2023-01-27] MEDS: ERTAPENEM SOD INJ 1 GM in SODIUM CHL 0.9% 50 ML IV SCH (14:30)
== END 2023-01-27 15:30 | disposition home or self-care (01) | DRG 189 ==
LOC: EDBD 09:50 → ER 09:50 → TELE 14:00 → TELE-WESTW 01-22 11:48
PROVIDERS: ADMIT Internal Medicine Pulmonary Disease; ATTEND Internal Medicine Cardiovascular Disease
DX: J96.20 Acute and chronic respiratory failure, unspecified whether with hypoxia or hypercapnia (principal); N39.0 Urinary tract infection, site not specified; E87.1 Hypo-osmolality and hyponatremia; D68.59 Other primary thrombophilia; Z16.12 Extended spectrum beta lactamase (ESBL) resistance; E44.0 Moderate protein-calorie malnutrition; I11.0 Hypertensive heart disease with heart failure; I50.811 Acute right heart failure; I27.29 Other secondary pulmonary hypertension; G47.33 Obstructive sleep apnea (adult) (pediatric); I48.91 Unspecified atrial fibrillation; K74.60 Unspecified cirrhosis of liver; D63.8 Anemia in other chronic diseases classified elsewhere; Z68.21 Body mass index [BMI] 21.0-21.9, adult; E87.6 Hypokalemia; B96.20 Unspecified Escherichia coli [E. coli] as the cause of diseases classified elsewhere; I25.10 Atherosclerotic heart disease of native coronary artery without angina pectoris; Z95.810 Presence of automatic (implantable) cardiac defibrillator; Z90.49 Acquired absence of other specified parts of digestive tract
CPT/HCPCS: 36415; 70450; 71045; 74176; 80048; 80053; 80061; 81001; 82607; 82746; 83605; 83690; 83880; 84132; 84443; 84484; 85025; 85610; 85730; 87040; 87086; 87088; 87186; 93005; 96361; 96374; 97110; 97116; 97163; 97530; 99291; G0378; J0696; J1335; J2001; J3480

== ENCOUNTER → 2023-05-24 | Outpatient (CLI) | payer MEDICARE, OTHER ==
[~2023-05-24] MED LIST changes: +CYANOCOBALAMIN (B-12) 1000 MCG/1 ML VIAL IM ONE; +CYANOCOBALAMIN (B-12) 1000 MCG/1 ML VIAL ONE; +TEMA30CA5 PO; -TRAM-297 PO
[2023-05-24 10:10] VITALS: BP 126/52; PULSE 91; RESP 18; O2SAT 98
[2023-05-24 10:43] VITALS: BP 125/61; PULSE 91; RESP 16; O2SAT 98
== END | disposition home or self-care (01) ==
LOC: CHF HDHVI 10:05
PROVIDERS: ATTEND Internal Medicine Cardiovascular Disease
DX: D64.9 Anemia, unspecified (principal); I27.21 Secondary pulmonary arterial hypertension; I11.0 Hypertensive heart disease with heart failure; I50.9 Heart failure, unspecified; Z79.899 Other long term (current) drug therapy
CPT/HCPCS: 94618; 96372; G0463; J3420

== ENCOUNTER 2023-06-02 08:10 | Day surgery (SDC) | payer MEDICARE, OTHER ==
[2023-06-02] VITALS (9 sets, daily range): BP systolic 91–118; BP diastolic 32–71; PULSE 78–89; RESP 14–20; TEMP 97.8–98.4
[~2023-06-02] VITALS: Ht 157.5 cm; Wt 53.5 kg
[~2023-06-02 08:10] MED LIST changes: -CYANOCOBALAMIN (B-12) 1000 MCG/1 ML VIAL IM ONE; -CYANOCOBALAMIN (B-12) 1000 MCG/1 ML VIAL ONE
== END 2023-06-02 13:23 | disposition home or self-care (01) ==
LOC: CATH 08:10
PROVIDERS: ATTEND Internal Medicine Cardiovascular Disease
DX: D64.9 Anemia, unspecified (principal); I50.810 Right heart failure, unspecified; M19.90 Unspecified osteoarthritis, unspecified site; E78.5 Hyperlipidemia, unspecified; Z79.01 Long term (current) use of anticoagulants; K29.70 Gastritis, unspecified, without bleeding
CPT/HCPCS: 86850; 86900; 86901; 86920; J7040; P9016

== ENCOUNTER → 2023-06-23 | Outpatient (CLI) | payer MEDICARE, OTHER ==
[~2023-06-23] MED LIST changes: +CYANOCOBALAMIN (B-12) 1000 MCG/1 ML VIAL ONE
[2023-06-23] MEDS: CYANOCOBALAMIN (B-12) 1000 MCG/1 ML VIAL IM ONE ×2 (10:38→10:58)
[2023-06-23 10:40] VITALS: BP 106/59; PULSE 79; RESP 16; O2SAT 98
[2023-06-23 11:00] VITALS: BP 113/58; PULSE 81; RESP 16; O2SAT 98
== END | disposition home or self-care (01) ==
LOC: CHF HDHVI 10:18
PROVIDERS: ATTEND Internal Medicine Cardiovascular Disease
DX: D64.9 Anemia, unspecified (principal); I27.21 Secondary pulmonary arterial hypertension; E78.5 Hyperlipidemia, unspecified; M19.90 Unspecified osteoarthritis, unspecified site; I11.0 Hypertensive heart disease with heart failure; I50.9 Heart failure, unspecified; Z79.01 Long term (current) use of anticoagulants; Z79.899 Other long term (current) drug therapy
CPT/HCPCS: 96372; G0463; J3420

== ENCOUNTER → 2023-09-27 | Outpatient (CLI) | payer MEDICARE, OTHER ==
[~2023-09-27] MED LIST changes: -CYANOCOBALAMIN (B-12) 1000 MCG/1 ML VIAL ONE
== END | disposition home or self-care (01) ==
LOC: Rad HDHVI 15:14
PROVIDERS: ATTEND Internal Medicine Cardiovascular Disease
DX: I08.2 Rheumatic disorders of both aortic and tricuspid valves (principal); I11.9 Hypertensive heart disease without heart failure; Z95.2 Presence of prosthetic heart valve
CPT/HCPCS: 93306

== ENCOUNTER → 2023-10-25 | Outpatient (CLI) | payer MEDICARE, OTHER ==
[~2023-10-25] VITALS: Ht 157.5 cm; Wt 56.2 kg
[~2023-10-25] MED LIST changes: +ADENOSINE 47 MG in GIVE UN-DILUTED 0 ML IV ONE; +ADENOSINE 90 MG/30 ML INJ IV ONE
== END | disposition home or self-care (01) ==
LOC: Rad HDHVI 12:36
PROVIDERS: ATTEND Internal Medicine Cardiovascular Disease
DX: I48.91 Unspecified atrial fibrillation (principal); J96.90 Respiratory failure, unspecified, unspecified whether with hypoxia or hypercapnia; I10 Essential (primary) hypertension; I27.21 Secondary pulmonary arterial hypertension; R42 Dizziness and giddiness; Z82.49 Family history of ischemic heart disease and other diseases of the circulatory system
CPT/HCPCS: 78452; 93005; 96374; 96375; A9500; J0153

== ENCOUNTER → 2024-01-04 | Outpatient (CLI) | payer MEDICARE, OTHER ==
[~2024-01-04] MED LIST changes: -ADENOSINE 47 MG in GIVE UN-DILUTED 0 ML IV ONE; -ADENOSINE 90 MG/30 ML INJ IV ONE
[2024-01-04 10:06] VITALS: BP 112/55; PULSE 96; RESP 16; O2SAT 97
[2024-01-04] MEDS: SODIUM FERRIC GLUC CPLEX 62.5MG/5ML VIAL IV ONE (10:25)
[2024-01-04] MEDS: PATIENTS OWN MEDICATION (FERRLECIT 125 MG) IV ONE (10:26)
[2024-01-04] MEDS: CYANOCOBALAMIN (B-12) 1000 MCG/1 ML VIAL IM ONE (11:34)
[2024-01-04 11:40] VITALS: BP 99/64; PULSE 73; RESP 18; O2SAT 97
[2024-01-04] MEDS: CYANOCOBALAMIN (B-12) 1000 MCG/1 ML VIAL ONE (11:49)
== END | disposition home or self-care (01) ==
LOC: CHF HDHVI 10:02
PROVIDERS: ATTEND Internal Medicine Cardiovascular Disease
DX: D64.9 Anemia, unspecified (principal); R53.83 Other fatigue; R53.1 Weakness; I27.21 Secondary pulmonary arterial hypertension; R42 Dizziness and giddiness; I10 Essential (primary) hypertension; J96.10 Chronic respiratory failure, unspecified whether with hypoxia or hypercapnia
CPT/HCPCS: 96365; 96372; G0463; J2916; J3420

== ENCOUNTER → 2024-01-20 | Outpatient (CLI) | payer MEDICARE, OTHER ==
[2024-01-20 10:44] VITALS: BP 110/49; PULSE 72; RESP 16; O2SAT 98
[2024-01-20] MEDS: SODIUM FERRIC GLUC CPLEX 62.5MG/5ML VIAL IV ONE (11:05)
[2024-01-20] MEDS: PATIENTS OWN MEDICATION (FERRLECIT 125 MG) IV ONE (11:10)
[2024-01-20 12:11] VITALS: BP 123/56; PULSE 74; RESP 16; O2SAT 98
== END | disposition home or self-care (01) ==
LOC: CHF HDHVI 10:41
PROVIDERS: ATTEND Internal Medicine Cardiovascular Disease
DX: D64.9 Anemia, unspecified (principal); I10 Essential (primary) hypertension; J96.11 Chronic respiratory failure with hypoxia
CPT/HCPCS: 96365; G0463; J2916

== ENCOUNTER → 2024-01-26 | Outpatient (CLI) | payer MEDICARE, OTHER ==
[~2024-01-26] MED LIST changes: +PATIENTS OWN MEDICATION (FERRLECIT 125 MG) IV ONE
[2024-01-26] MEDS: SODIUM FERRIC GLUC CPLEX 62.5MG/5ML VIAL IV ONE (14:55)
[2024-01-26 15:00] VITALS: BP 107/53; PULSE 90; RESP 18; O2SAT 96
[2024-01-26] MEDS: SODIUM FERR GLUC 62.5MG/5ML 125 MG in SODIUM CHL 0.9% 100 ML IV ONE (15:51)
[2024-01-26 16:18] VITALS: BP 112/52; PULSE 83; RESP 18; O2SAT 96
== END | disposition home or self-care (01) ==
LOC: CHF HDHVI 14:50
PROVIDERS: ATTEND Internal Medicine Cardiovascular Disease
DX: D64.9 Anemia, unspecified (principal); J96.11 Chronic respiratory failure with hypoxia; I10 Essential (primary) hypertension
CPT/HCPCS: 96365; G0463; J2916

== ENCOUNTER → 2024-02-15 | Outpatient (CLI) | payer MEDICARE, OTHER ==
[~2024-02-15] MED LIST changes: -PATIENTS OWN MEDICATION (FERRLECIT 125 MG) IV ONE
[2024-02-15 11:44] VITALS: BP 120/62; PULSE 74; RESP 18; O2SAT 96
[2024-02-15] MEDS: CYANOCOBALAMIN (B-12) 1000 MCG/1 ML VIAL IM ONE (11:44)
[2024-02-15] MEDS: CYANOCOBALAMIN (B-12) 1000 MCG/1 ML VIAL ONE (13:16)
[2024-02-15] MEDS: SODIUM FERRIC GLUC CPLEX 62.5MG/5ML VIAL IV ONE ×2 (13:16→13:45)
[2024-02-15 13:23] VITALS: BP 125/68; PULSE 81; RESP 18; O2SAT 96
== END | disposition home or self-care (01) ==
LOC: CHF HDHVI 12:14
PROVIDERS: ATTEND Internal Medicine Cardiovascular Disease
DX: D50.9 Iron deficiency anemia, unspecified (principal); I10 Essential (primary) hypertension
CPT/HCPCS: 96365; 96372; G0463; J2916; J3420

== ENCOUNTER → 2024-03-15 | Outpatient (CLI) | payer MEDICARE, OTHER ==
[~2024-03-15] MED LIST changes: +PATIENTS OWN MEDICATION (FERRLECIT 125 MG) IV ONE
[2024-03-15 12:05] VITALS: BP 113/57; PULSE 79; RESP 18; O2SAT 96
[2024-03-15] MEDS: SODIUM FERRIC GLUC CPLEX 62.5MG/5ML VIAL IV ONE (12:16)
[2024-03-15 13:19] VITALS: BP 104/55; PULSE 80; RESP 18; O2SAT 96
[2024-03-15] MEDS: SODIUM FERR GLUC 62.5MG/5ML 125 MG in SODIUM CHL 0.9% 100 ML IV ONE (14:26)
== END | disposition home or self-care (01) ==
LOC: CHF HDHVI 12:00
PROVIDERS: ATTEND Internal Medicine Cardiovascular Disease
DX: D50.9 Iron deficiency anemia, unspecified (principal); J96.10 Chronic respiratory failure, unspecified whether with hypoxia or hypercapnia; I10 Essential (primary) hypertension; R53.83 Other fatigue
CPT/HCPCS: 96365; G0463; J2916

== ENCOUNTER → 2024-04-02 | Outpatient (CLI) | payer MEDICARE, OTHER ==
[~2024-04-02] VITALS: Ht 33 cm; Wt 0.5 kg
[2024-04-02] MEDS: SODIUM FERR GLUC 62.5MG/5ML 110 ML IV ONE (12:24)
[2024-04-02] MEDS: SODIUM FERRIC GLUC CPLEX 62.5MG/5ML VIAL IV ONE (12:24)
[2024-04-02 12:30] VITALS: BP 117/56; PULSE 81; RESP 20; O2SAT 98
[2024-04-02] MEDS: CYANOCOBALAMIN (B-12) 1000 MCG/1 ML VIAL IM ONE (12:30)
[2024-04-02 13:38] VITALS: BP 107/52; PULSE 72; RESP 18; O2SAT 98
[2024-04-02] MEDS: CYANOCOBALAMIN (B-12) 1000 MCG/1 ML VIAL ONE (13:54)
== END | disposition home or self-care (01) ==
LOC: CHF HDHVI 12:15
PROVIDERS: ATTEND Internal Medicine Cardiovascular Disease
DX: D50.9 Iron deficiency anemia, unspecified (principal); R53.83 Other fatigue; I10 Essential (primary) hypertension; J96.10 Chronic respiratory failure, unspecified whether with hypoxia or hypercapnia
CPT/HCPCS: 96365; 96372; G0463; J2916; J3420

== ENCOUNTER → 2024-09-12 | Outpatient (CLI) | payer MEDICARE, OTHER ==
[~2024-09-12] MED LIST changes: -PATIENTS OWN MEDICATION (FERRLECIT 125 MG) IV ONE
--- NOTE | 2024-09-12 12:45 | DVH ---
XY CHEST TWO VIEWS ROUTINE CLINICAL HISTORY: SOB COMPARISON: XY CHEST TWO VIEWS ROUTINE on DOS: 09/16/23, XY CHEST TWO VIEWS ROUTINE on DOS: 08/05/23, XY CHEST TWO VIEWS ROUTINE on DOS: 02/11/23, XY CHEST TWO VIEWS ROUTINE on DOS: 09/23/22, XY CHEST TWO VIE WS ROUTINE on DOS: 09/20/22, XY CHEST TWO VIEWS ROUTINE on DOS: 09/16/23 TECHNIQUE: Frontal and lateral view of the chest was obtained FINDINGS: Lines and Tubes: None Lungs: Low lung volumes. Prominent interstitial opacities in the bilateral lungs which appear worsene d compared to exam from 08/05/2023. Pleura: No effusion. No pneumothorax. Cardiomediastinal contours:Enlarged. Bones: No acute osseous abnormality. IMPRESSION: 1. Low lung volumes. Prominent interstitial opacities in the bilateral lungs which appear worsened co mpared to exam from . Lungs are favored to reflect atypical infection or pulmonary edema with superimposed pulmonary fib rosis.
== END | disposition home or self-care (01) ==
LOC: Rad HDHVI 11:20
PROVIDERS: ATTEND Internal Medicine Cardiovascular Disease
DX: J84.9 Interstitial pulmonary disease, unspecified (principal); J98.4 Other disorders of lung; R06.02 Shortness of breath
CPT/HCPCS: 71046

== ENCOUNTER → 2024-09-25 | Outpatient (CLI) | payer MEDICARE, OTHER | END | disposition home or self-care (01) | LOC: Rad HDHVI 15:13 | PROVIDERS: ATTEND Internal Medicine Cardiovascular Disease | DX: I34.0 Nonrheumatic mitral (valve) insufficiency (principal); I11.0 Hypertensive heart disease with heart failure; I50.33 Acute on chronic diastolic (congestive) heart failure | CPT/HCPCS: 93306 ==

== ENCOUNTER 2024-10-31 11:42 | Outpatient (CLI) | payer MEDICARE, OTHER ==
[2024-10-31 12:00] VITALS: BP 102/52; PULSE 67; RESP 16; O2SAT 94
[2024-10-31] MEDS: MULTIPLE VIT 10 ML IV ONE (13:05)
[2024-10-31] MEDS: MVI in SODIUM CHLORIDE 0.9% 500 ML IVB ONE (13:07)
[2024-10-31] MEDS: CYANOCOBALAMIN (B-12) 1000 MCG/1 ML VIAL ONE (13:40)
[2024-10-31] MEDS: CYANOCOBALAMIN (B-12) 1000 MCG/1 ML VIAL IM ONE (14:00)
[2024-10-31 15:50] VITALS: BP 110/53; PULSE 64; RESP 16; O2SAT 94
== END 2024-10-31 17:00 | disposition home or self-care (01) ==
LOC: CHF HDHVI 11:42
PROVIDERS: ATTEND Internal Medicine Cardiovascular Disease
DX: E86.0 Dehydration (principal); D64.9 Anemia, unspecified; I11.0 Hypertensive heart disease with heart failure; I50.9 Heart failure, unspecified
CPT/HCPCS: 96360; 96361; 96372; G0463; J3420

== ENCOUNTER 2024-11-28 12:17 | Inpatient (IN) | payer MEDICARE, OTHER ==
[~2024-11-28] VITALS: Ht 157.5 cm; Wt 53.2 kg
[~2024-11-28 12:17] MED LIST changes: +ESOM40CA83 PO; +POTA-180 PO; +TEMA15CA2 PO
--- NOTE | 2024-11-28 12:34 | ED.PDOC ---
General HPI Comments This is a 74 year old female brought in by daughter presenting to the ED with chief complaint of flank pain. Daughter reports that the patient has been experiencing right sided flank pain with associated foul smelling, brown colored urine for the past 3-4 days. Patient relays that she has had similar pain in the past with previous kidney stones. Patient denies any N/V/D, dysuria, hematuria, abdominal pain, fever, or chills. Time Seen by MD: 12:31 Primary Care Provider: YANY Reviewed notes: Nurses Notes, Medications, Allergies Allergies: Coded Allergies: NO KNOWN ALLERGIES (Unverified , 06/01/23) Home Meds Reported Medications Temazepam (Restoril) 30 Mg Cap, 30 MG PO QHSP, CAP 01/22/23 Metolazone (Metolazone) 5 Mg Tab, 5 MG PO BID PRN for ANKLE SWELLING 01/11/20 [place] (Adempas) 0.5 Mg Tab, 0.5 MG PO TID for PULMONARY HYPERTENSION 01/11/20 Macitentan (Opsumit) 10 Mg Tab, 10 MG PO QAM for HYPERTENSION 01/11/20 Warfarin Sodium (Warfarin Sodium) 5 Mg Tab, 5 MG PO QAM for POST-CABG 01/11/20 Potassium Chloride (Klor-Con M20) 20 Meq Tab, 20 MEQ PO TID for HYPOKALEMIA 01/11/20 Furosemide (Furosemide) 40 Mg Tab, 40 MG PO BID for ANKLE SWELLING 01/11/20 Carvedilol (Carvedilol) 3.125 Mg Tab, 3.125 MG PO BID for HYPERTENSION 01/11/20 Information Source: Patient, Relative (Daughter) Mode of Arrival: Wheelchair Severity: Moderate Inability to void: None Timing: Days Duration: Since onset Prehospital treatment: None Onset: Spontaneous Symptoms: Other (Foul smelling urine) History of: UTI, Kidney stone Location: (R) Flank Past Medical History PAST MEDICAL HISTORY: Anemia, CAD, CHF, HTN, Kidney Stones, UTI'S Surgical History: CABG, Cholecystectomy Surgical History (Other): Valve replacement, Defibrillator [employer] History: No Pertinent [employer]ATOR History Family History Family History: Reviewed,noncontributory to illness Social History Smoker: Non-Smoker Alcohol: Denies ETOH Use Drugs: Denies Drug Use Lives In: Home Constitutional: denies: chills, diaphoresis, fatigue, fever, malaise, sweats, weakness, others EENTM: denies: blurred vision, double vision, ear bleeding, ear discharge, ear drainage, ear pain, ear ringing, eye pain, eye redness, hearing loss, mouth pain, mouth swelling, nasal discharge, nose bleeding, nose congestion, nose pain, photophobia, tearing, throat pain, throat swelling, voice changes, others Respiratory: denies: cough, hemoptysis, orthopnea, SOB at rest, shortness of breath, SOB with excertion, stridor, wheezing, others Cardiovascular: denies: chest pain, dizzy spells, diaphoresis, Dyspnea on exertion, edema, irregular heart beat, left arm pain, lightheadedness, palpitations, PND, syncope, others Gastrointestinal: denies: abdomen distended, abdominal pain, blood streaked bowels, constipated, diarrhea, dysphagia, difficulty swallowing, hematemesis, melena, nausea, poor appetite, poor fluid intake, rectal bleeding, rectal pain, vomiting, others Genitourinary: reports: flank pain, others (Foul smelling urine); denies: abnormal vagina bleeding, burning, dyspareunia, dysuria, frequency, hematuria, incontinence, pain, , vagina discharge, urgency Neurological: denies: dizziness, fainting, headache, left sided numbness, left sided weakness, numbness, paresthesia, pre-existing deficit, right sided numbness, right sided weakness, seizure, speech problems, tingling, tremors, weakness, others Musculoskeletal: denies: back pain, gout, joint pain, joint swelling, muscle pain, muscle stiffness, neck pain, others Integumetry: denies: bruises, change in color, change in hair/nails, dryness, laceration, lesions, lumps, rash, wounds, others Allergic/Immunocompromised: denies: Difficulty Healing, Frequent Infections, Hives, Itching, others Hematologic/Lymphatic: denies: anemia, blood clots, easy bleeding, easy bruising, swollen glands, others Endocrine: denies: excessive hunger, excessive sweating, excessive thirst, excessive urination, flushing, intolerance to cold, intolerance to heat, unexplained weight gain, unexplained weight loss, others Psychiatric: denies: anxiety, bipolar disorder, depression, hopeless, panic disorder, schizophrenia, sleepless, suicidal, others All Other Systems: Reviewed and Negative Physical Exam General Appearance: Moderate Distress HEENT: Normal ENT Inspection, Pharynx Normal, TMs Normal Neck: Full Range of Motion, Non-Tender, Normal, Normal Inspection Respiratory: Chest Non-Tender, Lungs Clear, No Accessory Muscle Use, No Respiratory Distress, Normal Breath Sounds Cardiovascular: No Edema, No JVD, No Murmur, No Gallop, Normal Peripheral Pulses, Regular Rate/Rhythm Breast Exam: Deferred Gastrointestinal: No Organomegaly, Non Tender, No Pulsatile Mass, Normal Bowel Sounds, Soft Genitalia: Deferred Pelvic: Deferred Rectal: Deferred Extremities: No calf tenderness, Normal capillary refill, Normal inspection, Normal range of motion, Non-tender, No pedal edema Musculoskeletal : Location: Right Extremity Location: Back Apperance: Tenderness: Mild Neurologic: Alert, tag writer II-XII nml as Tested, No Motor Deficits, Normal Affect, Normal Mood, No Sensory Deficits Cerebellar Function: Normal Reflexes: Normal Skin: Dry, Normal Color, Warm Lymphatic: No Adenopathy Was a procedure done? Was a procedure done?: No Differential Diagnosis Kidney stone (Female): Musculoskeletal pain, Renal failure, Strain, Urolithiasis X-Ray, Labs, Meds, VS Vital Signs Date Time Temp Pulse Resp B/P (MAP) Pulse Ox O2 Delivery O2 Flow Rate FiO2 11/28/24 12:36 98.1 91 17 108/67 (81) 95 98.1 Lab Test 11/28/24 13:11 11/28/24 13:04 Range/Units Urine Color Light-yellow Yellow Urine Clarity Clear Clear Urine pH 6.0 5.0-9.0 Urine Specific [place] 1.009 1.001-1.035 Urine Protein Negative Negative Urine Ketones Negative Negative Urine Blood Negative Negative /uL Urine Nitrite Negative Negative Urine Bilirubin Negative Negative Urine Urobilinogen Normal Negative mg/dL Urine Leukocyte Esterase 1+ Negative /uL Urine RBC <1 0 - 4 /hpf Urine Microscopic WBC 1 0-5 /HPF Urine Squamous Epithelial Cells Few <5 /hpf Urine Bacteria None seen None Seen /hpf Urine Glucose Normal Normal mg/dL White Blood Count 4.9 4.4-10.8 10^3/uL Red Blood Count 3.60 L 4.0-5.20 10^6/uL Hemoglobin 10.5 L 12.2-16.2 g/dL Hematocrit 30.9 L 36.0-46.0 % Mean Corpuscular Volume 85.8 80.0-100.0 fL Mean Corpuscular Hemoglobin 29.1 28.0-32.0 pg Mean Corpuscular Hemoglobin Concent 34.0 32.0-36.0 g/dL Red Cell Distribution Width 14.5 H 11.8-14.3 % Platelet Count 345 140-450 10^3/uL Mean Platelet Volume 6.3 L 6.9-10.8 fL Neutrophils (%) (Auto) 79.1 37.0-80.0 % Lymphocytes (%) (Auto) 12.7 10.0-50.0 % Monocytes (%) (Auto) 5.4 0.0-12.0 % Eosinophils (%) (Auto) 1.6 0.0-7.0 % Basophils (%) (Auto) 1.2 0.0-2.0 % Neutrophils # (Auto) 3.9 1.6-8.6 10 ^3/uL Lymphocytes # (Auto) 0.6 0.4-5.4 10 ^3/uL Monocytes # (Auto) 0.3 0-1.3 10 ^3/uL Eosinophils # (Auto) 0.1 0-0.8 10 ^3/uL Basophils # (Auto) 0.1 0-0.2 10 ^3/uL Nucleated Red Blood Cells 0.1 % Sodium Level 131 L 136-145 mmol/L Potassium Level 4.0 3.5-5.1 mmol/L Chloride Level 96 L 98-107 mmol/L Carbon Dioxide Level 26 20-31 mmol/L Anion Gap 9 5-15 Blood Urea Nitrogen 10 9-23 mg/dL Creatinine 0.48 L 0.550-1.02 mg/dL Glomerular Filtration Rate Calc 99 >90 mL/min BUN/Creatinine Ratio 20.8 H 10.0-20.0 Serum Glucose 87 74-106 mg/dL Calcium Level 9.9 8.7-10.4 mg/dL The patient's CBC shows anemia with a hemoglobin of 10.5 hematocrit of 30.9 The platelets are within normal limits The chemistry panel is within normal limits. The urine test is negative at this time At this time the CAT scan of the abdomen and pelvis shows: IMPRESSION: Cirrhotic morphology liver. Cholecystectomy. Fecal like contents within the small bowel which can be seen with ileus, hypomotility, bowel obstruction. Infraumbilical ventral Wall hernia containing fat measuring 3.1 x 3.0 cm. Fat containing right inguinal hernia. Cardiomegaly, coronary artery calcification disease. Pulmonary reticulation/fibrotic changes. No right hydronephrosis/nephrolithiasis. Chronic L1 compression deformity with 90% loss height. At this time, the patient is being admitted with persistent pain Images Reviewed?: Images reviewed and evaluated by me Time of 1ST Reevaluation: 13:48 Reevaluation 1ST: Unchanged Patient Education/Counseling: Diagnosis, Treatment, Prognosis Family Education/Counseling: Diagnosis, Treatment, Prognosis Additional Information Reviewed patient's previous visit(s): 03/28/23 for shoulder pain The following tests were ordered, and results were reviewed by me: CT Abd/Pel, CBC, BMP, UA Additional information was gathered from interviewing the following independent historian: Daughter I reviewed and agreed with the following test results read by other provider: CT Abd/Pel I discussed treatments and results with medical personnel and: PATIENT and daughter Comprehensive systems review obtained and negative except for what is stated in the HPI. SEPSIS Sepsis Screen Physician Orders Ct Ab Pel Wo Con-No Oral Or Iv (11/28/24 12:40) Heplock Iv (11/28/24 12:40) Vital Signs Date Time Temp Pulse Resp B/P (MAP) Pulse Ox O2 Delivery O2 Flow Rate FiO2 11/28/24 12:36 98.1 91 17 108/67 (81) 95 98.1 Laboratory Tests Test 11/28/24 13:04 White Blood Count 4.9 10^3/uL (4.4-10.8) Departure 1 Departure Time of Disposition: 13:48 Impression: Primary Impression: Intractable abdominal pain Disposition: 09 ADMITTED INPATIENT Admit to: Med Surg Condition: Fair Critical Care Note Critical Care Time?: No Stability Stability form required: Yes Unstable for transfer: ED Physician Assesment (Clinical assesment) Heart Score Heart Score: Heart Score Response (Comments) Value History N/A 0 EKG N/A 0 Age N/A 0 Risk Factors N/A 0 Troponin N/A 0 Total 0 I personally scribed for TOM ESTRADA MD ([email or web address]) on 11/28/24 at 12:34. Electronically submitted by Salvador Oneil ([email or web address]). I personally scribed for TOM ESTRADA MD ([email or web address]) on 11/28/24 at 13:04. Electronically submitted by Salvador Oneil ([email or web address]). TOM ESTRADA MD Nov 28, 2024 12:34
[2024-11-28 13:13] LABS: Urine Bacteria None Seen /hpf (None Seen)
[2024-11-28 13:19] LABS: Basophils # (auto) 0.1 10 ^3/uL (0-0.2); Basophils % (auto) 1.2 % (0.0-2.0); Eosinophils # (auto) 0.1 10 ^3/uL (0-0.8); Eosinophils % (auto) 1.6 % (0.0-7.0); Hematocrit 30.9 % (36.0-46.0); Hemoglobin 10.5 g/dL (12.2-16.2); Lymphocytes # (auto) 0.6 10 ^3/uL (0.4-5.4); Lymphocytes % (auto) 12.7 % (10.0-50.0); Mean Corpuscular Hemoglobin 29.1 pg (28.0-32.0); Mean Corpuscular Volume 85.8 fL (80.0-100.0); Monocytes # (auto) 0.3 10 ^3/uL (0-1.3); Monocytes % (auto) 5.4 % (0.0-12.0); Neutrophils # (auto) 3.9 10 ^3/uL (1.6-8.6); Neutrophils % (auto) 79.1 % (37.0-80.0); Nucleated Red Blood Cells % 0.1 %; Platelet Count (auto) 345 10^3/uL (140-450); Red Cell Distribution Width 14.5 % (11.8-14.3); White Blood Cell 4.9 10^3/uL (4.4-10.8)
[2024-11-28 13:22] LABS: Urine Blood Negative /uL (Negative); Urine Clarity Clear (Clear); Urine Color Light-Yellow (Yellow); Urine Protein, UAD Negative (Negative); Urine Specific Gravity 1.009 (1.001-1.035); Urine Squamous Epithelial Cell FEW /hpf (<5); Urine Urobilinogen Normal (Negative); Urine WBC 1 /HPF (0-5)
[2024-11-28 13:27] LABS: Anion Gap 9 (5-15); Calcium 9.9 mg/dL (8.7-10.4); Carbon Dioxide 26 mmol/L (20-31)
--- NOTE | 2024-11-28 13:29 | DVH ---
Indication: right flank pain Technique: CT axial images of the abdomen and pelvis are obtained without contrast. Coronal and sagit carlos reformats were obtained. Radiation Dose Information: CTDI volume is 5.65 mGy. Dose-length product is 277.38 mGy*cm Comparison: CT CHST AB PEL WO CON-NO IV/ORAL on DOS: 03/28/23, FINDINGS: There is limited interpretation of the abdomen and pelvis without administration of intravenous contr ast. Cardiomegaly. Bibasilar pulmonary reticulation, atelectatic changes. Adrenal glands, spleen, pancreas unremarkable in shape. Cholecystectomy. Cirrhotic morphology appear ance of the liver. Kidneys demonstrate no hydronephrosis, nephrolithiasis. Stomach is partially distended. Small bowel loops demonstrate Fecal like contents. Moderate to large volume stool within the colon. No secondary signs for appendicitis. Abdominal aortic atherosclerotic disease, tortuosity. Bladder is partially distended. No free pelvic fluid. No inguinal lymphadenopathy. Fat containing right inguinal hernia measuring 3.0 cm. Infraumbi lical ventral wall hernia measuring 3.0 x 3.1 cm. L1 chronic appearing compression deformity 90% loss height and 4 mm retropulsion. Moderate thoracolum bar degenerative disc disease. IMPRESSION: Cirrhotic morphology liver. Cholecystectomy. Fecal like contents within the small bowel which can be seen with ileus, hypomotility, bowel obstruct ion. Infraumbilical ventral Wall hernia containing fat measuring 3.1 x 3.0 cm. Fat containing right inguinal hernia. Cardiomegaly, coronary artery calcification disease. Pulmonary reticulation/fibrotic changes. No right hydronephrosis/nephrolithiasis. Chronic L1 compression deformity with 90% loss height. Other findings as described.
[2024-11-28 13:30] LABS: Chloride 96 mmol/L (98-107); Sodium 131 mmol/L (136-145)
[2024-11-28 13:32] LABS: BUN/Creatinine Ratio 20.8 (10.0-20.0); Blood Urea Nitrogen 10 mg/dL (9-23); Glucose 87 mg/dL (74-106)
--- NOTE | 2024-11-28 22:42 | DVHHPRES ---
History of Present Illness Resident Creating Document: RORY HOUSER RESIDENT History of Present Illness 74 year old female with PMH of anemia, gastritis, pulmonary hypertension, pulmonary fibrosis, cirrhosis, biventricular heart failure, hypertension, obstructive sleep apnea, atrial fibrillation, spinal stenosis prosthetic mitral wall presented with complaints of right flank pain last four days which she describes as excruciating more on lying flat. She mentioned her last bowel movement was 2 days ago and she has not passed gas since yesterday. She also mentioned foul-smelling urine but no symptoms of dysuria, polyuria, polydipsia. Patient denied any recent fall but had fall two years ago Past medical history anemia, gastritis, pulmonary hypertension, pulmonary fibrosis, cirrhosis, biventricular heart failure, hypertension, obstructive sleep apnea, atrial fibrillation, spinal stenosis, prosthetic mitral wall Medication history Carvedilol Furosemide Macitanten Metolazone Potassium chloride Riociguat Temazepam Warfarin Review of Systems Review of Systems As described in the HPI Allergies: Coded Allergies: NO KNOWN ALLERGIES (Unverified , 06/01/23) Exam Vital Signs Vital Signs Date Time Temp Pulse Resp B/P (MAP) Pulse Ox O2 Delivery O2 Flow Rate FiO2 11/28/24 20:00 97.9 79 16 124/67 (86) 98 97.9 11/28/24 15:15 Room Air Exam Limited physical examination Right flank tenderness Labs/Xrays Labs Test 11/28/24 13:11 11/28/24 13:04 Range/Units Urine Color Light-yellow Yellow Urine Clarity Clear Clear Urine pH 6.0 5.0-9.0 Urine Specific [place] 1.009 1.001-1.035 Urine Protein Negative Negative Urine Ketones Negative Negative Urine Blood Negative Negative /uL Urine Nitrite Negative Negative Urine Bilirubin Negative Negative Urine Urobilinogen Normal Negative mg/dL Urine Leukocyte Esterase 1+ Negative /uL Urine RBC <1 0 - 4 /hpf Urine Microscopic WBC 1 0-5 /HPF Urine Squamous Epithelial Cells Few <5 /hpf Urine Bacteria None seen None Seen /hpf Urine Glucose Normal Normal mg/dL White Blood Count 4.9 4.4-10.8 10^3/uL Red Blood Count 3.60 L 4.0-5.20 10^6/uL Hemoglobin 10.5 L 12.2-16.2 g/dL Hematocrit 30.9 L 36.0-46.0 % Mean Corpuscular Volume 85.8 80.0-100.0 fL Mean Corpuscular Hemoglobin 29.1 28.0-32.0 pg Mean Corpuscular Hemoglobin Concent 34.0 32.0-36.0 g/dL Red Cell Distribution Width 14.5 H 11.8-14.3 % Platelet Count 345 140-450 10^3/uL Mean Platelet Volume 6.3 L 6.9-10.8 fL Neutrophils (%) (Auto) 79.1 37.0-80.0 % Lymphocytes (%) (Auto) 12.7 10.0-50.0 % Monocytes (%) (Auto) 5.4 0.0-12.0 % Eosinophils (%) (Auto) 1.6 0.0-7.0 % Basophils (%) (Auto) 1.2 0.0-2.0 % Neutrophils # (Auto) 3.9 1.6-8.6 10 ^3/uL Lymphocytes # (Auto) 0.6 0.4-5.4 10 ^3/uL Monocytes # (Auto) 0.3 0-1.3 10 ^3/uL Eosinophils # (Auto) 0.1 0-0.8 10 ^3/uL Basophils # (Auto) 0.1 0-0.2 10 ^3/uL Nucleated Red Blood Cells 0.1 % Sodium Level 131 L 136-145 mmol/L Potassium Level 4.0 3.5-5.1 mmol/L Chloride Level 96 L 98-107 mmol/L Carbon Dioxide Level 26 20-31 mmol/L Anion Gap 9 5-15 Blood Urea Nitrogen 10 9-23 mg/dL Creatinine 0.48 L 0.550-1.02 mg/dL Glomerular Filtration Rate Calc 99 >90 mL/min BUN/Creatinine Ratio 20.8 H 10.0-20.0 Serum Glucose 87 74-106 mg/dL Calcium Level 9.9 8.7-10.4 mg/dL Assessment/Plan Assessment/Plan Assessment/plan # Intractable flank pain ?musculoskeletal ?referred pain from bowel obstruction -CT abdomen Urine analysis avoid opoids as pain meds considering possible bowel obstruction/ileus/partial bowel obstruction # ?bowel obstruction -Fecal like contents within the small bowel which can be seen with ileus, hypomotility, bowel obstruction, seen on CT NPO NG tube Surgical consult # Cirrhotic morphology liver. -seen on CT # status post Cholecystectomy. -seen on CT #Infraumbilical ventral Wall hernia containing fat measuring 3.1 x 3.0 cm. -seen on CT #Fat containing right inguinal hernia. -seen on CT #Chronic L1 compression deformity with 90% loss height. -seen on CT #Normocytic anemia -monitor # pulmonary hypertension due pulmonary fibrosis stable currently NPO resume home meds once diet is started #biventricular heart failure stable currently NPO resume home meds once diet is started #hypertension stable currently NPO resume home meds once diet is started #obstructive sleep apnea Avoid CPAP, bowel obstruction #atrial fibrillation #history of prosthetic mitral valve placement Case discussion with Dr Barnes Plan discussed with: Son, Other My Orders Orders - RORY HOUSER Procedure Category Date Status Time Admit ADMIT 11/28/24 Verified 22:41 Oxygen By Nasal RT 11/28/24 Verified Cannula 22:41 Stat Ekg For Chest BIB 11/28/24 Verified Pain 22:41 Date of Service: Nov 29, 2024 Billing Provider: KAYKAY BARNES MD Common Visit Codes: [id number] INP/OBS CARE (HIGH) Secondary Visit Codes: [id number] CARE PLAN 30 MINUTES RORY HOUSER Nov 28, 2024 22:42
[2024-11-29 02:06] VITALS: PULSE 73; RESP 13; O2SAT 99
[2024-11-29] MEDS: ACETAMINOPHEN 325 MG TAB PO ONE (02:09)
--- NOTE | 2024-11-29 05:07 | DVH ---
EXAM: US Retroperitoneal Limited, Renal CLINICAL INDICATION: flank pain right side TECHNIQUE: Real-time limited ultrasound of the retroperitoneum with image documentation. COMPARISON: No relevant prior studies available. FINDINGS: RIGHT KIDNEY: Right kidney measures up to 8.3 cm. No stones. No hydronephrosis. LEFT KIDNEY: Left kidney measures up to 10.3 cm. No stones. No hydronephrosis. BLADDER: Normal-appearing urinary bladder. Prevoid volume 75 cc. OTHER FINDINGS: Comparison None. . IMPRESSION: No acute findings in the retroperitoneum. HS:Y
[2024-11-29] MEDS: KETOROLAC TROMETH 30 MG/ML 1ML VIAL IV ONE (06:03)
[2024-11-29] MEDS: PANTOPRAZOLE 40 MG/10 ML VIAL INJ IV ONE (06:04)
[2024-11-29 07:37] LABS: Basophils # (auto) 0 10 ^3/uL (0-0.2); Basophils % (auto) 0.9 % (0.0-2.0); Eosinophils # (auto) 0.1 10 ^3/uL (0-0.8); Eosinophils % (auto) 2.3 % (0.0-7.0); Hematocrit 29.1 % (36.0-46.0); Hemoglobin 9.9 g/dL (12.2-16.2); Lymphocytes # (auto) 0.8 10 ^3/uL (0.4-5.4); Lymphocytes % (auto) 16.2 % (10.0-50.0); Mean Corpuscular Hemoglobin 29.3 pg (28.0-32.0); Mean Corpuscular Hgb Conc. 34.1 g/dL (32.0-36.0); Monocytes # (auto) 0.3 10 ^3/uL (0-1.3); Monocytes % (auto) 6.5 % (0.0-12.0); Neutrophils # (auto) 3.5 10 ^3/uL (1.6-8.6); Neutrophils % (auto) 74.1 % (37.0-80.0); Platelet Count (auto) 310 10^3/uL (140-450); Red Blood Cells 3.38 10^6/uL (4.0-5.20); Red Cell Distribution Width 14.7 % (11.8-14.3); White Blood Cell 4.7 10^3/uL (4.4-10.8)
[2024-11-29 08:00] LABS: Albumin 3.9 g/dL (3.2-4.8); Alkaline Phosphatase 84 U/L (46-116); Anion Gap 7 (5-15); Aspartate Aminotransferase 15 U/L (<34); BUN/Creatinine Ratio 17.6 (10.0-20.0); Calcium 9.8 mg/dL (8.7-10.4); Carbon Dioxide 28 mmol/L (20-31); Glucose 80 mg/dL (74-106); Magnesium 2.1 mg/dL (1.6-2.6); Potassium 3.6 mmol/L (3.5-5.1); Total Protein 6.5 g/dL (5.7-8.2)
[2024-11-29 08:01] LABS: Alanine Aminotransferase < 9 U/L (7-40); Bilirubin, Total 0.8 mg/dL (0.2-1.0); Blood Urea Nitrogen 9 mg/dL (9-23); Chloride 97 mmol/L (98-107); Sodium 132 mmol/L (136-145)
[2024-11-29] MEDS: GASTROGRAFIN 120 ML SOL ONE (09:37)
[2024-11-29 10:33] LABS: INR 1.04 (0.9-1.15); Partial Thromboplastin Time 43.3 SEC (24.5-34.5)
--- NOTE | 2024-11-29 10:41 | DVHPN2 ---
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125 mg Q12HR PO 11/29/24 10:00 Ketorolac Tromethamine 15 mg Q6HR IV 11/29/24 12:00 12/04/24 11:59 Pantoprazole Sodium 40 mg DAILY IV 11/29/24 10:00 laboratory and microbiology Laboratory Tests 11/29/24 06:53 Test 11/29/24 06:53 Range/Units Serum Glucose 80 74-106 mg/dL Problem List 4 DAY HX OF RIGHT FLANK PAIN NO FEVER NO HEMATURIA NO DYSURIA PMH ORG HAD PAH PUL FIBROSIS HFrEF CHRONIC ACC HTN AFIB HX OF MV STENOSIS S/P MV REPLACEMENT ANEMIA CIRRHOSIS/ CRYPTOGENIC VS RIGHT SIDED FAILURE SLEEP APNEA HX OF GASTRITIS HYPONATREMIA CT OF ABD PELVIS CONSTIPATION WITH POSSIBLE MOTILITY DISORDER L1 COMPRESSION FRACTURE S/P LINO INGUINAL AND VENTRAL HERNIA SMALL Assessment/Plan BOWEL PREP RESUME HOME MEDS Plan discussed with: Patient YANY CASTILLO MD Nov 29, 2024 10:41
--- NOTE | 2024-11-29 10:48 | DVH ---
Procedure: XY SMALL BOWEL SERIES-W GASTROGRA Reason for study/Clinical History: R/O SBO Comparison Study: None Technique: Single contrast small bowel series performed. FINDINGS/IMPRESSION: Initial government property inspector view of the abdomen and pelvis appears demonstrates no acute process. Contrast is identified within the colon by 45 minutes. This represents a normal small bowel transit time.
[2024-11-29] MEDS: PANTOPRAZOLE 40 MG/10 ML VIAL INJ IV SCH (10:50)
[2024-11-29] MEDS: CARVEDILOL 3.125 MG TAB PO SCH (10:50)
[2024-11-29] MEDS: FUROSEMIDE 40 MG/4 ML VIAL IV SCH (10:50)
[2024-11-29] MEDS: SODIUM CHLORIDE 0.9% 1,000 ML IV ONE (10:50)
[2024-11-29] MEDS: KETOROLAC TROMETH 30 MG/ML 1ML VIAL IV SCH (12:16)
--- NOTE | 2024-11-29 13:18 | DVHPNRES ---
Progress Note Date Seen: Nov 29, 2024 Resident Creating Document: SHANE MABRY RESDIENT Medical Necessity Reason Pt with a Central, PICC or Fol: No Subjective Review of Systems HISTORY OF PRESENT ILLNESS: 74 year old female with PMH of anemia, gastritis, pulmonary hypertension, pulmonary fibrosis, cirrhosis, biventricular heart failure, hypertension, obstructive sleep apnea, atrial fibrillation, spinal stenosis prosthetic mitral wall presented with complaints of right flank pain last four days which she describes as excruciating more on lying flat. She mentioned her last bowel movement was 2 days ago and she has not passed gas since yesterday. She also mentioned foul-smelling urine but no symptoms of dysuria, polyuria, polydipsia. Patient denied any recent fall but had fall two years ago Past medical history: anemia, gastritis, pulmonary hypertension, pulmonary fibrosis, cirrhosis, biventricular heart failure, hypertension, obstructive sleep apnea, atrial fibrillation, spinal stenosis, prosthetic mitral wall Home medication: Carvedilol, furosemide, Macitanten, metolazone, potassium chloride, rosuvastatin, Riociguat, Warfarin Patient seen and examined at bedside. Patient is still complaining of right flank pain. Patient reports: No new complaints Changes from previous H/P or p: No Changes Objective vital signs Vital Sign Date Time Temp Pulse Resp B/P (MAP) Pulse Ox O2 Delivery O2 Flow Rate FiO2 11/29/24 11:59 63 91/52 11/29/24 10:46 17 94 11/29/24 09:20 Room Air* 0 21 11/29/24 06:00 98.4 98.4 medications Current Medications Medications Dose Ordered Sig/Shama Route Start Time Stop Time Status Last Admin Dose Admin Warfarin Sodium RX PROTOCOL PER PHARMACY PO 11/29/24 09:45 UNV Furosemide 40 mg DAILY IV 11/29/24 10:00 11/29/24 10:50 40 MG Carvedilol 3.125 mg Q12HR PO 11/29/24 10:00 11/29/24 10:50 3.125 MG Ketorolac Tromethamine 15 mg Q6HR IV 11/29/24 12:00 12/04/24 11:59 11/29/24 12:16 15 MG Pantoprazole Sodium 40 mg DAILY IV 11/29/24 10:00 11/29/24 10:50 40 MG Lactulose 30 ml BID PO 11/29/24 22:00 Examination General Appearance: Alert, Oriented X3, Cooperative, No acute distress HEENT: Atraumatic, PERRLA, EOMI, Mucous membrane moist/pink Respiratory: Clear to auscultation, Normal air movement Cardiovascular: Regular rate, Normal S1, Normal S2, No murmurs, no chest wall tenderness Abdominal: Right flank tenderness Extremities: No clubbing, No cyanosis, No edema, Normal pulses, No tenderness/swelling Skin: No rashes, No breakdown, No significant lesion Neuro: Normal gait, Normal speech, Strength at 5/5 X4 ext, Normal tone, Sensation intact, Cranial nerves 3-12 NL, Reflexes 2+ Psych/Mental Status: Mental status NL, Mood NL laboratory and microbiology Laboratory Tests 11/29/24 06:53 Test 11/29/24 06:53 Range/Units Serum Glucose 80 74-106 mg/dL Labs and/or images reviewed: Labs reviewed by me, Image(s) reviewed by me Problem List/Assessment/Plan Problem List/Assessment/Plan Severe intractable back pain, due to Lumbar spine compression fracture Pulmonary hypertension Pulmonary fibrosis HFrEF Atrial fibrillation Mitral valve stenosis, status post mitral valve replacement Anemia Cirrhosis, due to cryptogenic/right-sided heart failure History of characterized Hyponatremia History of inguinal and ventral hernia Status post cholecystectomy Sleep apnea Ruled out small-bowel obstruction * CT abdominopelvic performed, showed, L1 compression deformity with 90% loss height with Infraumbilical ventral Wall hernia containing fat measuring 3.1 x 3.0 cm * Small bowel series performed, showed no acute abnormalities Plan/recommendation Pain management IV ketorolac q.[address] Martinez Continue home meds DIET: Clear liquid diet DVT PROPHYLAXIS: On warfarin GI PROPHYLAXIS:: Protonix CODE STATUS: Goal of care discussed for more than 18 minutes, full code DISPOSITION: Med/surge Patient's status and plan discussed with the patient. Case discussed with Dr. Francis. Plan discussed with: Patient, Other (RN) My Orders My Orders Orders - SHANE MABRY Procedure Category Date Status Time * Cardiology Consult CONS 11/29/24 Transmitted 08:14 Sodium Chloride 0.9% PHA 11/29/24 In Process 09:45 Warfarin Per Rx PHA 11/29/24 Pending Protocol (Coumadin 09:45 Furosemide Injection PHA 11/29/24 In Process (Lasix Injection) 10:00 Carvedilol Tablet PHA 11/29/24 In Process (Coreg Tablet) 10:00 Discontinue Ng ORDERS 11/29/24 Transmitted 09:34 Ketorolac Injection PHA 11/29/24 In Process (Toradol Injection) 12:00 Pantoprazole PHA 11/29/24 In Process (Protonix) 10:00 Electrocardigram EKG 11/29/24 Logged 09:45 Clear Liq Diet DIET 11/29/24 Transmitted Lunch ConsultdrJoseph Belcher CONS 11/29/24 Verified [place](Spine) 10:58 Date of Service: Nov 29, 2024 Billing Provider: EVELIN FRANCIS MD Common Visit Codes: [id number] INP/OBS CARE(HIGH) SHANE MABRY Nov 29, 2024 13:18 EVELIN FRANCIS MD Dec 03, 2024 21:55
[2024-11-29] MEDS ORDERED: CARVEDILOL 3.125 MG TAB PO ONE (13:30)
[2024-11-29 15:40] VITALS: BP 118/47; PULSE 71; RESP 20; TEMP 98.6; O2SAT 94
[2024-11-29 16:03] VITALS: BP 118/47; PULSE 71; RESP 20; TEMP 98.6; O2SAT 94
[2024-11-29 16:40] VITALS: BP 124/59; PULSE 82; RESP 18; TEMP 98.9; O2SAT 94
[2024-11-29] MEDS: WARFARIN SODIUM 5 MG TAB PO ONE (18:23)
[2024-11-29 20:00] VITALS: PULSE 71; RESP 16; O2SAT 95
[2024-11-29 20:21] LABS: Urine Bacteria FEW /hpf (None Seen); Urine Blood Negative /uL (Negative); Urine Clarity Clear (Clear); Urine Color Light-Yellow (Yellow); Urine Mucus FEW (None Seen); Urine Protein, UAD Negative (Negative); Urine Squamous Epithelial Cell None Seen /hpf (<5); Urine Urobilinogen Normal (Negative); Urine WBC 2 /HPF (0-5); Urine pH 7.5 (5.0-9.0)
[2024-11-29 21:00] VITALS: BP 116/54; PULSE 71; RESP 16; TEMP 99.2; O2SAT 95
[2024-11-29] MEDS: LACTULOSE 20Gm/30ML SOLN PO SCH (22:00)
[2024-11-29] MEDS ORDERED: CARVEDILOL 3.125 MG TAB PO SCH (22:00)
[2024-11-30] VITALS (8 sets, daily range): BP systolic 118–159; BP diastolic 67–86; PULSE 67–93; RESP 16–19; TEMP 97.4–98.4; O2SAT 94–100
[2024-11-30 07:22] LABS: Basophils # (auto) 0.1 10 ^3/uL (0-0.2); Basophils % (auto) 1.1 % (0.0-2.0); Eosinophils # (auto) 0.1 10 ^3/uL (0-0.8); Eosinophils % (auto) 1.5 % (0.0-7.0); Hematocrit 27.7 % (36.0-46.0); Hemoglobin 9.4 g/dL (12.2-16.2); Lymphocytes # (auto) 0.8 10 ^3/uL (0.4-5.4); Lymphocytes % (auto) 11.3 % (10.0-50.0); Mean Corpuscular Hemoglobin 29.7 pg (28.0-32.0); Mean Corpuscular Hgb Conc. 33.9 g/dL (32.0-36.0); Mean Corpuscular Volume 87.6 fL (80.0-100.0); Monocytes # (auto) 0.4 10 ^3/uL (0-1.3); Monocytes % (auto) 6.2 % (0.0-12.0); Neutrophils # (auto) 5.3 10 ^3/uL (1.6-8.6); Neutrophils % (auto) 79.9 % (37.0-80.0); Nucleated Red Blood Cells % 0.2 %; Platelet Count (auto) 290 10^3/uL (140-450); Red Blood Cells 3.16 10^6/uL (4.0-5.20); Red Cell Distribution Width 14.9 % (11.8-14.3); White Blood Cell 6.7 10^3/uL (4.4-10.8)
[2024-11-30 07:30] LABS: Chloride 105 mmol/L (98-107); Sodium 140 mmol/L (136-145)
[2024-11-30 07:31] LABS: Calcium 9.2 mg/dL (8.7-10.4); Carbon Dioxide 26 mmol/L (20-31)
[2024-11-30 07:36] LABS: BUN/Creatinine Ratio 15.4 (10.0-20.0); Glucose 75 mg/dL (74-106)
[2024-11-30 07:38] LABS: Blood Urea Nitrogen 8 mg/dL (9-23); INR 1.08 (0.9-1.15); Partial Thromboplastin Time 40.5 SEC (24.5-34.5); Prothrombin Time 11.4 sec (9.3-11.8)
[2024-11-30 07:39] LABS: Anion Gap 9 (5-15); Potassium 2.8 mmol/L (3.5-5.1)
--- NOTE | 2024-11-30 08:09 | DVHINCON2 ---
Consultation - Spinal Surgery Date Seen: Nov 30, 2024 Referring Physician Referring Physician AllAttending Doctor: Micky Hyde Reason for Consultation Right flank pain History of Present Illness History of Present Illness 74 year old female with PMH of anemia, gastritis, pulmonary hypertension, pulmonary fibrosis, cirrhosis, biventricular heart failure, hypertension, obstructive sleep apnea, atrial fibrillation, spinal stenosis prosthetic mitral wall presented with complaints of right flank pain last four days which she describes as excruciating more on lying flat. She mentioned her last bowel movement was 2 days ago and she has not passed gas since yesterday. She also mentioned foul-smelling urine but no symptoms of dysuria, polyuria, polydipsia. Patient denied any recent fall but had fall two years ago Past Medical/Surgical History Past Medical/Surgical History Past medical history anemia, gastritis, pulmonary hypertension, pulmonary fibrosis, cirrhosis, biventricular heart failure, hypertension, obstructive sleep apnea, atrial fibrillation, spinal stenosis, prosthetic mitral wall Family and Social History Family and Social History Noncontributory to case Allergies and medications Allergies: Coded Allergies: NO KNOWN ALLERGIES (Unverified , 06/01/23) Home Meds Reported Medications Temazepam (Restoril) 30 Mg Cap, 30 MG PO QHSP, CAP 01/22/23 Metolazone (Metolazone) 5 Mg Tab, 5 MG PO BID PRN for ANKLE SWELLING 01/11/20 Riociguat Base ([place]empas) 0.5 Mg Tab, 0.5 MG PO TID for PULMONARY HYPERTENSION 01/11/20 Macitentan (Opsumit) 10 Mg Tab, 10 MG PO QAM for HYPERTENSION 01/11/20 Warfarin Sodium (Warfarin Sodium) 5 Mg Tab, 5 MG PO QAM for POST-CABG 01/11/20 Potassium Chloride (Klor-Con M20) 20 Meq Tab, 20 MEQ PO TID for HYPOKALEMIA 01/11/20 Furosemide (Furosemide) 40 Mg Tab, 40 MG PO BID for ANKLE SWELLING 01/11/20 Carvedilol (Carvedilol) 3.125 Mg Tab, 3.125 MG PO BID for HYPERTENSION 01/11/20 Review of systems Review of Systems: HEENT:Normal, CVS:Abnormal, RESPIRATORY:Abnormal, GI:Normal, :Normal, MSK:Abnormal Examination Vital signs Imaging ORDERING PHYSICIAN: TOM ESTRADA MD PROCEDURE(s): ABPL - CT AB PEL WO CON-NO ORAL OR IV REASON: right flank pain ORDER NUMBER(s): [id number], ACCESSION NUMBER(s): [id number] Indication: right flank pain Technique: CT axial images of the abdomen and pelvis are obtained without contrast. Coronal and sagittal reformats were obtained. Radiation Dose Information: CTDI volume is 5.65 mGy. Dose-length product is 277.38 mGy*cm Comparison: CT CHST AB PEL WO CON-NO IV/ORAL on DOS: 03/28/23, FINDINGS: There is limited interpretation of the abdomen and pelvis without administration of intravenous contrast. Cardiomegaly. Bibasilar pulmonary reticulation, atelectatic changes. Adrenal glands, spleen, pancreas unremarkable in shape. Cholecystectomy. Cirrhotic morphology appearance of the liver. Kidneys demonstrate no hydronephrosis, nephrolithiasis. Stomach is partially distended. Small bowel loops demonstrate Fecal like contents. Moderate to large volume stool within the colon. No secondary signs for appendicitis. Abdominal aortic atherosclerotic disease, tortuosity. Bladder is partially distended. No free pelvic fluid. No inguinal lymphadenopathy. Fat containing right inguinal hernia measuring 3.0 cm. Infraumbilical ventral wall hernia measuring 3.0 x 3.1 cm. L1 chronic appearing compression deformity 90% loss height and 4 mm retro pulsion. Moderate thoracolumbar degenerative disc disease. IMPRESSION: Cirrhotic morphology liver. Cholecystectomy. Fecal like contents within the small bowel which can be seen with ileus, hypomotility, bowel obstruction. Infraumbilical ventral Wall hernia containing fat measuring 3.1 x 3.0 cm. Fat containing right inguinal hernia. Cardiomegaly, coronary artery calcification disease. Pulmonary reticulation/fibrotic changes. No right hydronephrosis/nephrolithiasis. Chronic L1 compression deformity with 90% loss height. Other findings as described. Vital Signs Date Time Temp Pulse Resp B/P (MAP) Pulse Ox O2 Delivery O2 Flow Rate FiO2 11/30/24 05:00 97.5 78 17 130/68 (88) 100 97.5 11/29/24 20:00 Room Air* 0 21 Medications Current Medications Medications (Trade) Dose Ordered Sig/Shama Route PRN Reason Start Time Stop Time Status Last Admin Warfarin Sodium (Coumadin Per Rx Protocol) RX PROTOCOL PER PHARMACY PO 11/29/24 09:45 Furosemide (Lasix Injection) 40 mg DAILY IV 11/29/24 10:00 11/29/24 10:50 Carvedilol (Coreg Tablet) 3.125 mg Q12HR PO 11/29/24 10:00 11/29/24 10:50 Ketorolac Tromethamine (Toradol Injection) 15 mg Q6HR IV 11/29/24 12:00 12/04/24 11:59 11/30/24 05:41 Pantoprazole Sodium (Protonix) 40 mg DAILY IV 11/29/24 10:00 11/29/24 10:50 Lactulose 30 ml BID PO 11/29/24 22:00 Carvedilol (Coreg Tablet) 3.125 mg Q12HR PO 11/29/24 22:00 11/29/24 15:31 DC Patient Own Medication 1 DAILY PO 11/30/24 10:00 Patient Own Medication 1 DAILY PO 11/30/24 10:00 Future Hold Laboratory Labs Test 11/30/24 06:50 11/29/24 06:53 11/29/24 05:09 Range/Units White Blood Count 6.7 # 4.4-10.8 10^3/uL Red Blood Count 3.16 L 4.0-5.20 10^6/uL Hemoglobin 9.4 L 12.2-16.2 g/dL Hematocrit 27.7 L 36.0-46.0 % Mean Corpuscular Volume 87.6 80.0-100.0 fL Mean Corpuscular Hemoglobin 29.7 28.0-32.0 pg Mean Corpuscular Hemoglobin Concent 33.9 32.0-36.0 g/dL Red Cell Distribution Width 14.9 H 11.8-14.3 % Platelet Count 290 140-450 10^3/uL Mean Platelet Volume 7.5 6.9-10.8 fL Neutrophils (%) (Auto) 79.9 37.0-80.0 % Lymphocytes (%) (Auto) 11.3 10.0-50.0 % Monocytes (%) (Auto) 6.2 0.0-12.0 % Eosinophils (%) (Auto) 1.5 0.0-7.0 % Basophils (%) (Auto) 1.1 0.0-2.0 % Neutrophils # (Auto) 5.3 1.6-8.6 10 ^3/uL Lymphocytes # (Auto) 0.8 0.4-5.4 10 ^3/uL Monocytes # (Auto) 0.4 0-1.3 10 ^3/uL Eosinophils # (Auto) 0.1 0-0.8 10 ^3/uL Basophils # (Auto) 0.1 0-0.2 10 ^3/uL Nucleated Red Blood Cells 0.2 % Prothrombin Time 11.4 9.3-11.8 sec Prothrombin Time INR 1.08 0.9-1.15 Activated Partial Thromboplast Time 40.5 H 24.5-34.5 SEC Sodium Level 140 # 136-145 mmol/L Potassium Level 2.8 L 3.5-5.1 mmol/L Chloride Level 105 98-107 mmol/L Carbon Dioxide Level 26 20-31 mmol/L Anion Gap 9 5-15 Blood Urea Nitrogen 8 L 9-23 mg/dL Creatinine 0.52 L 0.550-1.02 mg/dL Glomerular Filtration Rate Calc 97 >90 mL/min BUN/Creatinine Ratio 15.4 10.0-20.0 Serum Glucose 75 74-106 mg/dL Calcium Level 9.2 8.7-10.4 mg/dL Magnesium Level 2.1 1.6-2.6 mg/dL Total Bilirubin 0.8 0.2-1.0 mg/dL Aspartate Amino Transferase (AST) 15 <34 U/L Alanine Aminotransferase (ALT) < 9 7-40 U/L Alkaline Phosphatase 84 46-116 U/L Total Protein 6.5 5.7-8.2 g/dL Albumin 3.9 3.2-4.8 g/dL Urine Color Light-yellow Yellow Urine Clarity Clear Clear Urine pH 7.5 5.0-9.0 Urine Specific [place] 1.010 1.001-1.035 Urine Protein Negative Negative Urine Ketones Negative Negative Urine Blood Negative Negative /uL Urine Nitrite Negative Negative Urine Bilirubin Negative Negative Urine Urobilinogen Normal Negative mg/dL Urine Leukocyte Esterase Negative Negative /uL Urine RBC <1 0 - 4 /hpf Urine Microscopic WBC 2 0-5 /HPF Urine Squamous Epithelial Cells None seen <5 /hpf Urine Bacteria Few H None Seen /hpf Urine Mucus Few None Seen Urine Glucose Normal Normal mg/dL Examination: HEENT:Normal, NECK:Normal, LUNGS:Normal, ABDOMEN:Normal, MSK:Normal (no pain MADRIGAL age appropriate ROM), SKIN:Normal, NEURO:Normal (sensation intact), :Abnormal (gallegos in place) Problem List/Assessment/Plan Problems: (1) Compression fracture of L1 lumbar vertebra Assessment and Plan Chronic L1 compression deformity with 90% loss height. Conservative management, muscle relaxers, oral analgesia, physical therapy PT to assess patient without TLSO brace for pain with standing and ambulation. If patient has considerable amount of pain limiting her mobility don TLSO brace and continue all the evaluation, WBAT Continue care and support per admitting team's discretion Patient may follow up with PCP if she develops pain Patient must be metabolically optimized No barriers to safe discharge per PT recommendation Call with questions Wilmar Chiang [facility] Surgery nurse practitioner For Dr Jeanna Rod Patient was examined, chart reviewed, labs evaluated, and diagnostic studies and findings analyzed. Case was discussed with Dr. Ye Rod who formulated the plan of care. This medical document was created using an electronic medical record system with [employer] dictation system. Although this document has been carefully reviewed, there might still be some phonetic and typographical errors. These areas are purely typographical due to imperfections of the software programs, a nd do not reflect any compromise in the patient's medical care. Plan discussed with Plan discussed with: Patient, Other (kelin) Code Visit Code Visit Total Time (mins): 20 SINGH CHIANG NP Nov 30, 2024 08:08
[2024-11-30] MEDS: POTASSIUM EFFERVESENT TAB 25 MEQ PO ONE (11:28)
[2024-11-30] MEDS: POTASSIUM CHLORIDE 60 MEQ, LIDOCAINE 1% (LOCAL ANESTH.) 6 ML in SODIUM CHL 0.9% 500 ML IV ONE (11:32)
--- NOTE | 2024-11-30 11:54 | DVHPNRES ---
Progress Note Date Seen: Nov 30, 2024 Resident Creating Document: SHANE MABRY RESDIENT Medical Necessity Reason Pt with a Central, PICC or Fol: No Subjective Review of Systems Patient seen and examined at the bedside. Patient is feeling better since admission but still complaining of abdominal pain. Patient reports: No new complaints, Feels better Changes from previous H/P or p: Changes Objective vital signs Vital Sign Date Time Temp Pulse Resp B/P (MAP) Pulse Ox O2 Delivery O2 Flow Rate FiO2 11/30/24 10:54 85 118/67 11/30/24 08:35 98.4 19 100 98.4 11/30/24 08:00 Nasal Cannula* 2 28 Total Intake and Output 11/29/24 11/29/24 11/30/24 15:00 23:00 07:00 Intake Total 200 ml 670 ml 700 ml Output Total 850 ml 350 ml Balance 200 ml -180 ml 350 ml medications Current Medications Medications Dose Ordered Sig/Shama Route Start Time Stop Time Status Last Admin Dose Admin Warfarin Sodium RX PROTOCOL PER PHARMACY PO 11/29/24 09:45 Carvedilol 3.125 mg Q12HR PO 11/29/24 10:00 11/30/24 10:54 3.125 MG Ketorolac Tromethamine 15 mg Q6HR IV 11/29/24 12:00 12/04/24 11:59 11/30/24 05:41 15 MG Pantoprazole Sodium 40 mg DAILY IV 11/29/24 10:00 11/30/24 10:55 40 MG Lactulose 30 ml BID PO 11/29/24 22:00 Patient Own Medication 1 DAILY PO 11/30/24 10:00 Patient Own Medication 1 DAILY PO 11/30/24 10:00 Hold Examination General Appearance: Alert, Oriented X3, Cooperative, No acute distress HEENT: Atraumatic, PERRLA, EOMI, Mucous membrane moist/pink Respiratory: Clear to auscultation, Normal air movement Cardiovascular: Regular rate, Normal S1, Normal S2, No murmurs, no chest wall tenderness Abdominal: Right flank tenderness Extremities: No clubbing, No cyanosis, No edema, Normal pulses, No tenderness/swelling Skin: No rashes, No breakdown, No significant lesion Neuro: Normal gait, Normal speech, Strength at 5/5 X4 ext, Normal tone, Sensation intact, Cranial nerves 3-12 NL, Reflexes 2+ Psych/Mental Status: Mental status NL, Mood NL laboratory and microbiology Laboratory Tests 11/30/24 06:50 Test 11/30/24 06:50 Range/Units Serum Glucose 75 74-106 mg/dL Labs and/or images reviewed: Labs reviewed by me, Image(s) reviewed by me Problem List/Assessment/Plan Problem List/Assessment/Plan Severe intractable back pain, due to Lumbar spine compression fracture Pulmonary hypertension Pulmonary fibrosis HFrEF Atrial fibrillation Mitral valve stenosis, status post mitral valve replacement Anemia Cirrhosis, due to cryptogenic/right-sided heart failure History of characterized Hyponatremia History of inguinal and ventral hernia Status post cholecystectomy Sleep apnea Ruled out small-bowel obstruction * CT abdominopelvic performed, showed, L1 compression deformity with 90% loss height with Infraumbilical ventral Wall hernia containing fat measuring 3.1 x 3.0 cm * Small bowel series performed, showed no acute abnormalities Plan/recommendation Pain management IV ketorolac q.[address] Martinez Continue home meds Consulted spine surgery DIET: Clear liquid diet DVT PROPHYLAXIS: On warfarin GI PROPHYLAXIS:: Protonix CODE STATUS: Goal of care discussed for more than 18 minutes, full code DISPOSITION: Med/surge Patient's status and plan discussed with the patient. Case discussed with Dr. Martinez. Plan discussed with: Patient, Other (RN) My Orders My Orders Orders - SHANE MABRY Procedure Category Date Status Time Patients Own PHA 11/30/24 In Process Medication 10:00 Patients Own PHA 11/30/24 In Process Medication 10:00 Coumadin Per Pharmacy BIB 11/29/24 In Process Protcol 17:00 Potassium Chloride PHA 11/30/24 In Process (Potassium Chloride). 10:45 Date of Service: Nov 30, 2024 Billing Provider: EVELIN MARTINEZ MD Common Visit Codes: [id number] INP/OBS CARE(HIGH) SHANE MABRY RESDIENT Nov 30, 2024 11:54 EVELIN MARTINEZ MD Dec 03, 2024 22:10
[2024-11-30] MEDS ORDERED: HYDROcodone-ACET 10/325MG TAB PO PRN (14:15)
[2024-11-30] MEDS: WARFARIN SODIUM 5 MG TAB PO ONE (17:43)
[2024-11-30] MEDS: POTASSIUM EFFERVESENT TAB 25 MEQ GT SCH (21:42)
[2024-12-01] VITALS (7 sets, daily range): BP systolic 137–158; BP diastolic 68–89; PULSE 68–91; RESP 14–17; TEMP 97.4–97.8; O2SAT 93–100
[2024-12-01 07:33] LABS: Basophils # (auto) 0 10 ^3/uL (0-0.2); Basophils % (auto) 0.9 % (0.0-2.0); Eosinophils # (auto) 0.2 10 ^3/uL (0-0.8); Eosinophils % (auto) 4.1 % (0.0-7.0); Hematocrit 28.3 % (36.0-46.0); Hemoglobin 9.6 g/dL (12.2-16.2); Lymphocytes # (auto) 0.6 10 ^3/uL (0.4-5.4); Lymphocytes % (auto) 11.6 % (10.0-50.0); Mean Corpuscular Hemoglobin 29.6 pg (28.0-32.0); Mean Corpuscular Hgb Conc. 34.1 g/dL (32.0-36.0); Mean Corpuscular Volume 86.9 fL (80.0-100.0); Monocytes # (auto) 0.2 10 ^3/uL (0-1.3); Monocytes % (auto) 4.6 % (0.0-12.0); Neutrophils # (auto) 4.1 10 ^3/uL (1.6-8.6); Neutrophils % (auto) 78.8 % (37.0-80.0); Platelet Count (auto) 281 10^3/uL (140-450); Red Blood Cells 3.26 10^6/uL (4.0-5.20); Red Cell Distribution Width 14.8 % (11.8-14.3); White Blood Cell 5.3 10^3/uL (4.4-10.8)
[2024-12-01 08:02] LABS: Albumin 3.7 g/dL (3.2-4.8); Alkaline Phosphatase 85 U/L (46-116); Anion Gap 7 (5-15); Aspartate Aminotransferase 21 U/L (<34); Calcium 9.7 mg/dL (8.7-10.4); Carbon Dioxide 26 mmol/L (20-31); Potassium 4.2 mmol/L (3.5-5.1); Total Protein 6.3 g/dL (5.7-8.2)
[2024-12-01 08:03] LABS: Bilirubin, Total 0.8 mg/dL (0.2-1.0)
[2024-12-01 08:15] LABS: Alanine Aminotransferase < 9 U/L (7-40); BUN/Creatinine Ratio 11.6 (10.0-20.0); Blood Urea Nitrogen < 5 mg/dL (9-23); Chloride 98 mmol/L (98-107); Glucose 73 mg/dL (74-106); Sodium 131 mmol/L (136-145)
[2024-12-01 11:06] LABS: INR 1.24 (0.9-1.15); Prothrombin Time 12.9 sec (9.3-11.8)
--- NOTE | 2024-12-01 13:19 | DVHDSRES ---
Discharge Summary Date of Admission Resident Creating Document: DURAN BUTCHER RESIDENT Nov 28, 2024 at 22:41 Date of Discharge: Dec 01, 2024 Admitting Diagnosis Severe intractable right flank pain Labs/Diagnostic Data: Laboratory Results Test 12/01/24 06:49 11/30/24 06:50 11/29/24 06:53 11/29/24 05:09 White Blood Count 5.3 10^3/uL (4.4-10.8) Red Blood Count 3.26 10^6/uL (4.0-5.20) Hemoglobin 9.6 g/dL (12.2-16.2) Hematocrit 28.3 % (36.0-46.0) Mean Corpuscular Volume 86.9 fL (80.0-100.0) Mean Corpuscular Hemoglobin 29.6 pg (28.0-32.0) Mean Corpuscular Hemoglobin Concent 34.1 g/dL (32.0-36.0) Red Cell Distribution Width 14.8 % (11.8-14.3) Platelet Count 281 10^3/uL (140-450) Mean Platelet Volume 6.5 fL (6.9-10.8) Neutrophils (%) (Auto) 78.8 % (37.0-80.0) Lymphocytes (%) (Auto) 11.6 % (10.0-50.0) Monocytes (%) (Auto) 4.6 % (0.0-12.0) Eosinophils (%) (Auto) 4.1 % (0.0-7.0) Basophils (%) (Auto) 0.9 % (0.0-2.0) Neutrophils # (Auto) 4.1 10 ^3/uL (1.6-8.6) Lymphocytes # (Auto) 0.6 10 ^3/uL (0.4-5.4) Monocytes # (Auto) 0.2 10 ^3/uL (0-1.3) Eosinophils # (Auto) 0.2 10 ^3/uL (0-0.8) Basophils # (Auto) 0 10 ^3/uL (0-0.2) Nucleated Red Blood Cells 0.0 % Prothrombin Time 12.9 sec (9.3-11.8) Prothrombin Time INR 1.24 (0.9-1.15) Sodium Level 131 mmol/L (136-145) Potassium Level 4.2 mmol/L (3.5-5.1) Chloride Level 98 mmol/L (98-107) Carbon Dioxide Level 26 mmol/L (20-31) Anion Gap 7 (5-15) Blood Urea Nitrogen < 5 mg/dL (9-23) Creatinine 0.43 mg/dL (0.550-1.02) Glomerular Filtration Rate Calc 102 mL/min (>90) BUN/Creatinine Ratio 11.6 (10.0-20.0) Serum Glucose 73 mg/dL (74-106) Calcium Level 9.7 mg/dL (8.7-10.4) Total Bilirubin 0.8 mg/dL (0.2-1.0) Aspartate Amino Transferase (AST) 21 U/L (<34) Alanine Aminotransferase (ALT) < 9 U/L (7-40) Alkaline Phosphatase 85 U/L (46-116) Total Protein 6.3 g/dL (5.7-8.2) Albumin 3.7 g/dL (3.2-4.8) Activated Partial Thromboplast Time 40.5 SEC (24.5-34.5) Magnesium Level 2.1 mg/dL (1.6-2.6) Urine Color Light-yellow (Yellow) Urine Clarity Clear (Clear) Urine pH 7.5 (5.0-9.0) Urine Specific [place] 1.010 (1.001-1.035) Urine Protein Negative (Negative) Urine Ketones Negative (Negative) Urine Blood Negative /uL (Negative) Urine Nitrite Negative (Negative) Urine Bilirubin Negative (Negative) Urine Urobilinogen Normal mg/dL (Negative) Urine Leukocyte Esterase Negative /uL (Negative) Urine RBC <1 /hpf (0 - 4) Urine Microscopic WBC 2 /HPF (0-5) Urine Squamous Epithelial Cells None seen /hpf (<5) Urine Bacteria Few /hpf (None Seen) Urine Mucus Few (None Seen) Urine Glucose Normal mg/dL (Normal) Other Laboratory Tests 12/01/24 06:49 Brief Hx & Hospital Course: 74-year-old female with a history of pulmonary hypertension, pulmonary fibrosis, chronic HFrEF, atrial fibrillation, hypertension, anemia, cirrhosis,mitral valve stenosis s/p prosthetic mitral valve replacement, obstructive sleep apnea, gastritis, and prior cholecystectomy presented with 4 days of severe right flank pain described as excruciating and worsened when lying flat. She also reported foul-smelling urine without fever, dysuria, hematuria, polyuria, or polydipsia. She had not had a bowel movement in 2 days and had not passed gas since the day prior to admission. No recent falls were reported, though she did fall 2 years ago. Hospital Course: Workup included CT abdomen/pelvis which revealed fecal material in the small bowel, suggesting constipation with possible motility disorder, and no signs of acute bowel obstruction. Imaging also revealed an infraumbilical ventral wall hernia (3.1 x 3.0 cm) and chronic L1 compression deformity with 90% vertebral height loss. A small bowel series showed no acute abnormalities. UA normal The patient remained hemodynamically stable throughout admission. Her chronic comorbidities (PAH, CHF, AFib, cirrhosis, anemia) were managed conservatively. Pain was attributed to the lumbar spine deformity. Conservative measures including IV ketorolac, muscle relaxants. Home medications were resumed once patient was able to tolerate PO. Consultations: Spine surgery: Conservative management recommended. Physical examination on the day of discharge: General Appearance: Alert, Oriented X3, Cooperative, No acute distress HEENT: Hearing loss; Atraumatic, PERRLA, EOMI, Mucous membrane moist/pink Respiratory: Clear to auscultation, Normal air movement Cardiovascular: Regular rate, Normal S1, Normal S2, No murmurs, no chest wall tenderness Abdominal: Right flank tenderness; decreasing Extremities: No clubbing, No cyanosis, No edema, Normal pulses, No tenderness/swelling Skin: No rashes, No breakdown, No significant lesion Neuro: Normal gait, Normal speech, Strength at 5/5 X4 ext, Normal tone, Sensation intact, Cranial nerves 3-12 NL, Reflexes 2+ Psych/Mental Status: Mental status NL, Mood NL Instructions: Resume home medications. Follow up with PCP for ongoing management and pain control. Monitor for worsening pain, mobility limitations, or GI symptoms. Follow-up: PCP for routine management Ortho/spine surgery if symptoms worsen Goals of care discussed with the patient for 20 minutes; full code Case discussed with Dr Dwyer Consults/Reason for consult Dr Martinez, patient's PCP//Dr Rod, spine surgeon due to severe back pain due to compression fracture Operations or Procedures Indication: right flank pain Technique: CT axial images of the abdomen and pelvis are obtained without contrast. Coronal and sagittal reformats were obtained. Radiation Dose Information: CTDI volume is 5.65 mGy. Dose-length product is 277.38 mGy*cm Comparison: CT CHST AB PEL WO CON-NO IV/ORAL on DOS: 03/28/23, FINDINGS: There is limited interpretation of the abdomen and pelvis without administration of intravenous contrast. Cardiomegaly. Bibasilar pulmonary reticulation, atelectatic changes. Adrenal glands, spleen, pancreas unremarkable in shape. Cholecystectomy. Cirrhotic morphology appearance of the liver. Kidneys demonstrate no hydronephrosis, nephrolithiasis. Stomach is partially distended. Small bowel loops demonstrate Fecal like contents. Moderate to large volume stool within the colon. No secondary signs for appendicitis. Abdominal aortic atherosclerotic disease, tortuosity. Bladder is partially distended. No free pelvic fluid. No inguinal lymphadenopathy. Fat containing right inguinal hernia measuring 3.0 cm. Infraumbilical ventral wall hernia measuring 3.0 x 3.1 cm. L1 chronic appearing compression deformity 90% loss height and 4 mm retropulsion. Moderate thoracolumbar degenerative disc disease. IMPRESSION: Cirrhotic morphology liver. Cholecystectomy. Fecal like contents within the small bowel which can be seen with ileus, hypomotility, bowel obstruction. Infraumbilical ventral Wall hernia containing fat measuring 3.1 x 3.0 cm. Fat containing right inguinal hernia. Cardiomegaly, coronary artery calcification disease. Pulmonary reticulation/fibrotic changes. No right hydronephrosis/nephrolithiasis. Chronic L1 compression deformity with 90% loss height. Other findings as described. Condition at Discharge: Stable Final Diagnosis/Problems List Severe intractable right flank/back pain, due to Lumbar spine compression fracture Pulmonary hypertension Pulmonary fibrosis HFrEF; not in exacerbation Atrial fibrillation Mitral valve stenosis, status post mitral valve replacement Anemia Cirrhosis, due to cryptogenic/right-sided heart failure History of characterized Hyponatremia History of inguinal and ventral hernia Status post cholecystectomy Sleep apnea Ruled out small-bowel obstruction Discharge Disposition: Home Discharge Instruct/Medications Diet: Consistent carbohydrate, Cardiac 2g Na,low cholest Activity: No Restrictions, As Tolerated Follow Up/Referral: f/u with Dr Martinez and spine surgery Medications: resume home meds, please continue warfarin Discharge Statement: "Patient was advised to return to the ER or call 911 if any headaches, dizziness, shortness of breath, chest pain, abdominal pain, bleeding, fevers, or worsening of medical condition. Patient was counseled about treatment plan, medications, possible side effects, patientverbalized understanding. All questions were answered to the best of my ability. This discharge took greater then 30 minutes in planning, reviewing documentation, counseling the patient, and discussing with other team members." ASSESSMENT ASSESSMENT Assessment acute intractable pain chronic lumbar fracture Addendum Addendum Addendum I was physically present for the cho portions of the service provided to patient by THE RESIDENT. I have reviewed the documentation, discussed the case with resident and agree with the resident's documentation except as noted. Also the patient's clinical case was discussed with the patient's nurse. This medical document was created using an electronic medical record system with computerized dictation system. Although this document has been carefully reviewed, there might still be some phonetic and typographical errors. These areas are purely typographical due to imperfections of the software programs, and do not reflect any compromise in the patient's medical care. Late signature. Date of Service: Dec 01, 2024 Billing Provider: ORTIZ DWYER MD Common Visit Codes: 97157-VHR/OBS DISCH DAY >30min Secondary Visit Codes: [id number] CARE PLAN 30 MINUTES (20 minutes) DURAN BUTCHER Dec 01, 2024 13:19 ORTIZ DWYER MD Dec 03, 2024 06:48
--- NOTE | 2024-12-01 13:25 | DVHDSRES ---
Discharge Summary Date of Admission Resident Creating Document: SHANE MABRY RESDIENT Nov 28, 2024 at 22:41 Date of Discharge: Dec 01, 2024 Labs/Diagnostic Data: Laboratory Results Test 12/01/24 06:49 11/30/24 06:50 11/29/24 06:53 11/29/24 05:09 White Blood Count 5.3 10^3/uL (4.4-10.8) Red Blood Count 3.26 10^6/uL (4.0-5.20) Hemoglobin 9.6 g/dL (12.2-16.2) Hematocrit 28.3 % (36.0-46.0) Mean Corpuscular Volume 86.9 fL (80.0-100.0) Mean Corpuscular Hemoglobin 29.6 pg (28.0-32.0) Mean Corpuscular Hemoglobin Concent 34.1 g/dL (32.0-36.0) Red Cell Distribution Width 14.8 % (11.8-14.3) Platelet Count 281 10^3/uL (140-450) Mean Platelet Volume 6.5 fL (6.9-10.8) Neutrophils (%) (Auto) 78.8 % (37.0-80.0) Lymphocytes (%) (Auto) 11.6 % (10.0-50.0) Monocytes (%) (Auto) 4.6 % (0.0-12.0) Eosinophils (%) (Auto) 4.1 % (0.0-7.0) Basophils (%) (Auto) 0.9 % (0.0-2.0) Neutrophils # (Auto) 4.1 10 ^3/uL (1.6-8.6) Lymphocytes # (Auto) 0.6 10 ^3/uL (0.4-5.4) Monocytes # (Auto) 0.2 10 ^3/uL (0-1.3) Eosinophils # (Auto) 0.2 10 ^3/uL (0-0.8) Basophils # (Auto) 0 10 ^3/uL (0-0.2) Nucleated Red Blood Cells 0.0 % Prothrombin Time 12.9 sec (9.3-11.8) Prothrombin Time INR 1.24 (0.9-1.15) Sodium Level 131 mmol/L (136-145) Potassium Level 4.2 mmol/L (3.5-5.1) Chloride Level 98 mmol/L (98-107) Carbon Dioxide Level 26 mmol/L (20-31) Anion Gap 7 (5-15) Blood Urea Nitrogen < 5 mg/dL (9-23) Creatinine 0.43 mg/dL (0.550-1.02) Glomerular Filtration Rate Calc 102 mL/min (>90) BUN/Creatinine Ratio 11.6 (10.0-20.0) Serum Glucose 73 mg/dL (74-106) Calcium Level 9.7 mg/dL (8.7-10.4) Total Bilirubin 0.8 mg/dL (0.2-1.0) Aspartate Amino Transferase (AST) 21 U/L (<34) Alanine Aminotransferase (ALT) < 9 U/L (7-40) Alkaline Phosphatase 85 U/L (46-116) Total Protein 6.3 g/dL (5.7-8.2) Albumin 3.7 g/dL (3.2-4.8) Activated Partial Thromboplast Time 40.5 SEC (24.5-34.5) Magnesium Level 2.1 mg/dL (1.6-2.6) Urine Color Light-yellow (Yellow) Urine Clarity Clear (Clear) Urine pH 7.5 (5.0-9.0) Urine Specific [place] 1.010 (1.001-1.035) Urine Protein Negative (Negative) Urine Ketones Negative (Negative) Urine Blood Negative /uL (Negative) Urine Nitrite Negative (Negative) Urine Bilirubin Negative (Negative) Urine Urobilinogen Normal mg/dL (Negative) Urine Leukocyte Esterase Negative /uL (Negative) Urine RBC <1 /hpf (0 - 4) Urine Microscopic WBC 2 /HPF (0-5) Urine Squamous Epithelial Cells None seen /hpf (<5) Urine Bacteria Few /hpf (None Seen) Urine Mucus Few (None Seen) Urine Glucose Normal mg/dL (Normal) Other Laboratory Tests 12/01/24 06:49 Final Diagnosis/Problems List acute intractable pain chronic lumbar fracture Discharge Disposition: Home Discharge Instruct/Medications Diet: Consistent carbohydrate, Cardiac 2g Na,low cholest Activity: No Restrictions, As Tolerated Follow Up/Referral: please fu with Dr Martinez and spine surgery Medications: resume home meds, please continue warfarin Discharge Statement: "Patient was advised to return to the ER or call 911 if any headaches, dizziness, shortness of breath, chest pain, abdominal pain, bleeding, fevers, or worsening of medical condition. Patient was counseled about treatment plan, medications, possible side effects, patientverbalized understanding. All questions were answered to the best of my ability. This discharge took greater then 30 minutes in planning, reviewing documentation, counseling the patient, and discussing with other team members." ASSESSMENT ASSESSMENT Assessment acute intractable pain chronic lumbar fracture DURAN BUTCHER RESIDENT Dec 01, 2024 13:25
[2024-12-01] MEDS: WARFARIN SODIUM 5 MG TAB PO ONE (16:57)
--- NOTE | 2024-12-03 11:59 | DVHPN2 ---
Progress Note - Dictate Date Seen: Dec 01, 2024 Medical Necessity Reason Pt with a Central, PICC or Fol: No Subjective PT WITH 4 DAY HX OF RIGHT FLANK PAIN NO FEVER NO HEMATURIA NO DYSURIA PMH ORG HAD PAH PUL FIBROSIS HFrEF CHRONIC ACC HTN AFIB HX OF MV STENOSIS S/P MV REPLACEMENT ANEMIA CIRRHOSIS/ CRYPTOGENIC VS RIGHT SIDED FAILURE SLEEP APNEA HX OF GASTRITIS HYPONATREMIA CT OF ABD PELVIS CONSTIPATION WITH POSSIBLE MOTILITY DISORDER L1 COMPRESSION FRACTURE S/P LINO INGUINAL AND VENTRAL HERNIA SMALL vital signs Vital Sign Date Time Temp Pulse Resp B/P (MAP) Pulse Ox O2 Delivery O2 Flow Rate FiO2 12/01/24 16:38 97.5 91 14 158/84 (108) 96 97.5 12/01/24 08:00 Nasal Cannula* 2 28 laboratory and microbiology Laboratory Tests 12/01/24 06:49 Test 12/01/24 06:49 Range/Units Serum Glucose 73 L 74-106 mg/dL Problem List 4 DAY HX OF RIGHT FLANK PAIN NO FEVER NO HEMATURIA NO DYSURIA PMH ORG HAD PAH PUL FIBROSIS HFrEF CHRONIC ACC HTN AFIB HX OF MV STENOSIS S/P MV REPLACEMENT ANEMIA CIRRHOSIS/ CRYPTOGENIC VS RIGHT SIDED FAILURE SLEEP APNEA HX OF GASTRITIS HYPONATREMIA CT OF ABD PELVIS CONSTIPATION WITH POSSIBLE MOTILITY DISORDER L1 COMPRESSION FRACTURE S/P LINO INGUINAL AND VENTRAL HERNIA SMALL Assessment/Plan [facility] OCTOBER DC HOME FOLLOWUP IN 1 WEEK Plan discussed with: Patient YANY CASTILLO MD Dec 03, 2024 11:59
--- NOTE | 2024-12-03 11:59 | DVHPN2 ---
Progress Note - Dictate Date Seen: Nov 30, 2024 Medical Necessity Reason Pt with a Central, PICC or Fol: No Subjective PT WITH 4 DAY HX OF RIGHT FLANK PAIN NO FEVER NO HEMATURIA NO DYSURIA PMH ORG HAD PAH PUL FIBROSIS HFrEF CHRONIC ACC HTN AFIB HX OF MV STENOSIS S/P MV REPLACEMENT ANEMIA CIRRHOSIS/ CRYPTOGENIC VS RIGHT SIDED FAILURE SLEEP APNEA HX OF GASTRITIS HYPONATREMIA CT OF ABD PELVIS CONSTIPATION WITH POSSIBLE MOTILITY DISORDER L1 COMPRESSION FRACTURE S/P LINO INGUINAL AND VENTRAL HERNIA SMALL vital signs Vital Sign Date Time Temp Pulse Resp B/P (MAP) Pulse Ox O2 Delivery O2 Flow Rate FiO2 12/01/24 16:38 97.5 91 14 158/84 (108) 96 97.5 12/01/24 08:00 Nasal Cannula* 2 28 laboratory and microbiology Laboratory Tests 12/01/24 06:49 Test 12/01/24 06:49 Range/Units Serum Glucose 73 L 74-106 mg/dL Problem List 4 DAY HX OF RIGHT FLANK PAIN NO FEVER NO HEMATURIA NO DYSURIA PMH ORG HAD PAH PUL FIBROSIS HFrEF CHRONIC ACC HTN AFIB HX OF MV STENOSIS S/P MV REPLACEMENT ANEMIA CIRRHOSIS/ CRYPTOGENIC VS RIGHT SIDED FAILURE SLEEP APNEA HX OF GASTRITIS HYPONATREMIA CT OF ABD PELVIS CONSTIPATION WITH POSSIBLE MOTILITY DISORDER L1 COMPRESSION FRACTURE S/P LINO INGUINAL AND VENTRAL HERNIA SMALL Assessment/Plan [facility] Plan discussed with: Patient YANY CASTILLO MD Dec 03, 2024 11:59
== END 2024-12-01 18:45 | disposition home or self-care (01) | DRG 543 ==
LOC: ER 12:17 → OVERFLOW 22:41 → EAST 11-29 15:32
PROVIDERS: ADMIT Student in an Organized Health Care Education/Training Program; ATTEND Student in an Organized Health Care Education/Training Program
DX: M48.56XA Collapsed vertebra, not elsewhere classified, lumbar region, initial encounter for fracture (principal); E87.1 Hypo-osmolality and hyponatremia; I50.22 Chronic systolic (congestive) heart failure; G47.30 Sleep apnea, unspecified; I11.0 Hypertensive heart disease with heart failure; I48.91 Unspecified atrial fibrillation; G47.33 Obstructive sleep apnea (adult) (pediatric); J84.10 Pulmonary fibrosis, unspecified; I50.82 Biventricular heart failure; K59.00 Constipation, unspecified; K74.60 Unspecified cirrhosis of liver; Z95.2 Presence of prosthetic heart valve; Z95.1 Presence of aortocoronary bypass graft; Z90.49 Acquired absence of other specified parts of digestive tract; Z79.899 Other long term (current) drug therapy
CPT/HCPCS: 36415; 74176; 74250; 76775; 80048; 80053; 81001; 83735; 85025; 85610; 85730; 97110; 97116; 97163; 97530; G0378; J1885; J2003; J2470